=== PATIENT | female | born 1945 | race Caucasian/White ===

== ENCOUNTER 2018-12-26 12:39 | Observation (INO) | payer OTHER, SELFPAY ==
[2018-12-26] VITALS (9 sets, daily range): BP systolic 132–172; BP diastolic 62–99; PULSE 90–108; RESP 18–22; TEMP 36.1–36.7; O2SAT 93–97; BMI 38.3
--- NOTE | 2018-12-26 12:51 | DI.RAD.S_ITS ---
PROCEDURE: XR ACUTE ABDOMEN SERIES INDICATIONS: diverticulitis, h/o perforation TECHNIQUE: One view chest and two views of the abdomen were acquired. COMPARISON: None. FINDINGS: Surgical changes and devices: Scattered surgical clips are seen within the abdomen. Chest: Lungs are clear. Heart size is normal. No pleural effusions. There is aortic atherosclerosis. No pneumothorax is evident. No pneumoperitoneum. Abdomen: Multiple air fluid levels are identified within the abdomen with associated air filled distended small bowel loops. The largest are located within the left upper quadrant and measure up to 3.7 cm in diameter. There is stool are seen within the colon. No suspicious calcifications. Visualized solid organ contours appear normal. Bones: No suspicious bony lesions. Prominent levoconvex curvature of the lumbar spine is present. IMPRESSION: 1. Small bowel ileus versus partial obstruction. The need for better characterization utilizing CT may be determined clinically. 2. No acute cardiopulmonary process. Dictated by: Twin Russ M.D. on 12/26/2018 at 12:35 Approved by: Twin Russ M.D. on 12/26/2018 at 12:37
--- NOTE | 2018-12-26 12:53 | ED.ABDPAIN ---
HPI - Abdominal Pain <Barbra Werner PA-C - Last Filed: 12/26/18 22:08> General Chief Complaint: Abdominal Pain Stated Complaint: severe cramps, diverticulitus Time Seen by Provider: 12/26/18 12:51 Source: patient Mode of arrival: ambulatory Limitations: no limitations History of Present Illness HPI narrative: This 73-year-old female comes in due to suspected diverticulitis flare. She states that she has had this for years and feels like this pain is typical of that. She states that she did have a perforation related to this in the past and had a colon resection, then later had to have some scar tissue revised. She has not had other abdominal surgeries. She states that usually she can feel this coming on and can get it better at home with diet modification and liquids, but today pain is more intense (she had made an appointment with her doctor today but got worse). She states that usually she will vomit that helps her feel better, but she does not have any nausea and has not had any vomiting. She did have some loose stools yesterday afternoon, none today. She denies any urinary symptoms. She has not had fever. She denies chest pain or dyspnea, pain or swelling in the extremities or other new symptoms with this. She states pain is lower, mostly midline to left. She denies recent travel. She states that she ate a corned beef sandwich yesterday that seemed to trigger symptoms Related Data Home Medications Medication Instructions Recorded Confirmed No Known Home Medications 12/26/18 12/26/18 Allergies Allergy/AdvReac Type Severity Reaction Status Date / Time No Known Drug Allergies Allergy Verified 12/26/18 12:48 Review of Systems <Barbra Werner PA-C - Last Filed: 12/26/18 22:08> Review of Systems ROS Unobtainable: All systems reviewed & are unremarkable except as noted in HPI and below PFSH <Barbra Werner PA-C - Last Filed: 12/26/18 22:08> Medical History Hiatal hernia (Acute) Ventral hernia (Acute) Diverticulitis (Chronic) Surgical History Perforated diverticulum (Resolved) S/P colon resection (Resolved) Status post scar revision (Resolved) Social History household members: none Smoking Status: Never smoker Family History Father Cardiac disease Hx of CABG Dementia Mother Cancer Daughter In good health Social History household members: none Smoking Status: Never smoker Exam <JIGAR Ferguson Last Filed: 12/26/18 22:08> Narrative Exam Narrative: GENERAL APPEARANCE: Patient appears mildly uncomfortable but in NAD HEENT: PERRL, EOMI, no scleral icterus NECK: Supple, no masses LUNGS: Clear to auscultation bilaterally. HEART: Rate and rhythm regular, normal S1 and S2, no S3 or S4. ABDOMEN: Protuberant, midline surgical scar noted, nondistended, bowel sounds present x 4 quadrants, no masses palpable, no hepatosplenomegaly. tender lower midline to left lower quadrant without guarding or rebound EXTREMITIES: No edema, no cyanosis, no calf tenderness DERMATOLOGIC: No jaundice or exanthem NEUROLOGIC: Alert and oriented with normal speech and coordination Initial Vital Signs Initial Vital Signs: Vital Signs Temperature 96.9 F L 12/26/18 12:44 Pulse Rate 108 H 12/26/18 12:44 Respiratory Rate 18 12/26/18 12:44 Blood Pressure 157/99 H 12/26/18 12:44 Pulse Oximetry 96 12/26/18 12:44 <Ann Tillman DO - Last Filed: 12/27/18 08:56> Initial Vital Signs Initial Vital Signs: Vital Signs Temperature 96.9 F L 12/26/18 12:44 Pulse Rate 108 H 12/26/18 12:44 Respiratory Rate 18 12/26/18 12:44 Blood Pressure 157/99 H 12/26/18 12:44 Pulse Oximetry 96 12/26/18 12:44 Course <JIGAR Ferguson Last Filed: 12/26/18 22:08> Additional Information: Patient was feeling significantly improved after initial pain medications and fluids. After about 5 hours (during weight to get her transferred for CT scan as ours was not functioning), patient reported she felt slightly lightheaded and pain was starting to return. She has not eaten for 24 hours. She fluid bolus given and additional Toradol and she was feeling better prior to transfer. O2 sat was noted to be somewhat low briefly, however when I went in to room noted that her O2 monitor had been placed upside down on her finger when she returned from the restroom, improved immediately when adjusted. 2049: Patient returned from [facility] approximately 30m ago but still no CT report received. I paged Dr. Colvin, radiologist medical donation professional, who advised this was read and patient has umbilical hernia with bowel obstruction. They are faxing report and surgery paged. Patient remains comfortable 2119: Report received. I have spoken with Dr. Corbin, medical donation professional for surgery. The patient does not have nausea, remains comfortable in terms of pain. I re-evaluated and can feel some non circumscribed increased density in the supra umbilical area just to the left of her incision site but no reducible circumscribed mass. she suggested admission this evening, continue maintenance fluids, pain medicine as needed, nausea medication as needed. She advised NG tube if patient starts vomiting, but does not appear to need now. She would like to have patient admitted to Medicine and she will see in the morning. I spoke with [facility] Geraldo who is agreeable with plan and will admit patient Orders Ordered: ED Orders 12/27/18 05:00 Basic Metabolic Panel Routine Complete Blood Count AUTO DIFF Routine Hemoglobin A1C % Routine Lipid Panel Routine Albuterol (Ventolin) 2.5 mg INH [id number] PRN PRN Reason: Wheezing Heparin Sodium (Porcine) (Heparin) 5,000 unit SUBCUT BID TERRA Hydromorphone HCl (Dilaudid) 0.5 mg IV Q6H PRN PRN Reason: Pain, Moderate (4-6) Hydromorphone HCl (Dilaudid) 1 mg IV Q6HR PRN PRN Reason: Pain, Severe (7-10) Last Admin: 12/27/18 03:54 Dose: 1 mg Sodium Chloride (Normal Saline 0.9%) 1,000 mls @ 125 mls/hr IV CONT TERRA Last Admin: 12/27/18 07:56 Dose: 125 mls/hr Infusion: 12/27/18 07:40 Dose: 125 mls/hr Admin: 12/26/18 23:40 Dose: 125 mls/hr Naloxone HCl (Narcan) 0.2 mg IV Q2MIN PRN PRN Reason: Opiate Reversal Ondansetron HCl (Zofran) 4 mg IV Q8HR PRN PRN Reason: Nausea And Vomiting Last Admin: 12/27/18 03:59 Dose: 4 mg Sodium Chloride (Normal Saline 0.9% Flush) 10 ml IV PRN PRN PRN Reason: Flush Last Admin: 12/26/18 23:55 Dose: 10 ml Sodium Chloride (Normal Saline 0.9% Flush) 10 ml IV BID TERRA Discontinued Medications Hydromorphone HCl (Dilaudid) 0.5 mg IV NOW ONE Stop: 12/26/18 13:16 Last Admin: 12/26/18 13:37 Dose: 0.5 mg Sodium Chloride (Normal Saline 0.9%) 1,000 mls @ 1,000 mls/hr IV BOLUS ONE Stop: 12/26/18 14:14 Last Infusion: 12/26/18 15:44 Dose: 0 mls/hr Admin: 12/26/18 13:37 Dose: 1,000 mls/hr Sodium Chloride (Normal Saline 0.9%) 1,000 mls @ 1,000 mls/hr IV BOLUS ONE Stop: 12/26/18 18:53 Last Infusion: 12/26/18 19:30 Dose: 0 mls/hr Admin: 12/26/18 18:18 Dose: 1,000 mls/hr Ketorolac Tromethamine (Toradol) 15 mg IV NOW ONE Stop: 12/26/18 13:16 Last Admin: 12/26/18 13:37 Dose: 15 mg Ketorolac Tromethamine (Toradol) 15 mg IV NOW ONE Stop: 12/26/18 17:55 Last Admin: 12/26/18 18:18 Dose: 15 mg Vital Signs - 8 hr 12/27/18 03:00 12/27/18 07:45 Temperature 98.3 F 98.4 F Pulse Rate 96 H 100 H Respiratory Rate 16 16 Blood Pressure 152/88 H 153/84 H Pulse Oximetry 92 97 <Ann Tillman, - Last Filed: 12/27/18 08:56> Orders Ordered: ED Orders 12/27/18 05:00 Basic Metabolic Panel Routine Complete Blood Count AUTO DIFF Routine Hemoglobin A1C % Routine Lipid Panel Routine Albuterol (Ventolin) 2.5 mg INH [id number] PRN PRN Reason: Wheezing Heparin Sodium (Porcine) (Heparin) 5,000 unit SUBCUT BID TERRA Hydromorphone HCl (Dilaudid) 0.5 mg IV Q6H PRN PRN Reason: Pain, Moderate (4-6) Hydromorphone HCl (Dilaudid) 1 mg IV Q6HR PRN PRN Reason: Pain, Severe (7-10) Last Admin: 12/27/18 03:54 Dose: 1 mg Sodium Chloride (Normal Saline 0.9%) 1,000 mls @ 125 mls/hr IV CONT TERRA Last Admin: 12/27/18 07:56 Dose: 125 mls/hr Infusion: 12/27/18 07:40 Dose: 125 mls/hr Admin: 12/26/18 23:40 Dose: 125 mls/hr Naloxone HCl (Narcan) 0.2 mg IV Q2MIN PRN PRN Reason: Opiate Reversal Ondansetron HCl (Zofran) 4 mg IV Q8HR PRN PRN Reason: Nausea And Vomiting Last Admin: 12/27/18 03:59 Dose: 4 mg Sodium Chloride (Normal Saline 0.9% Flush) 10 ml IV PRN PRN PRN Reason: Flush Last Admin: 12/26/18 23:55 Dose: 10 ml Sodium Chloride (Normal Saline 0.9% Flush) 10 ml IV BID TERRA Discontinued Medications Hydromorphone HCl (Dilaudid) 0.5 mg IV NOW ONE Stop: 12/26/18 13:16 Last Admin: 12/26/18 13:37 Dose: 0.5 mg Sodium Chloride (Normal Saline 0.9%) 1,000 mls @ 1,000 mls/hr IV BOLUS ONE Stop: 12/26/18 14:14 Last Infusion: 12/26/18 15:44 Dose: 0 mls/hr Admin: 12/26/18 13:37 Dose: 1,000 mls/hr Sodium Chloride (Normal Saline 0.9%) 1,000 mls @ 1,000 mls/hr IV BOLUS ONE Stop: 12/26/18 18:53 Last Infusion: 12/26/18 19:30 Dose: 0 mls/hr Admin: 12/26/18 18:18 Dose: 1,000 mls/hr Ketorolac Tromethamine (Toradol) 15 mg IV NOW ONE Stop: 12/26/18 13:16 Last Admin: 12/26/18 13:37 Dose: 15 mg Ketorolac Tromethamine (Toradol) 15 mg IV NOW ONE Stop: 12/26/18 17:55 Last Admin: 12/26/18 18:18 Dose: 15 mg Vital Signs - 8 hr 12/27/18 03:00 12/27/18 07:45 Temperature 98.3 F 98.4 F Pulse Rate 96 H 100 H Respiratory Rate 16 16 Blood Pressure 152/88 H 153/84 H Pulse Oximetry 92 97 MDM - Abdominal Pain <Barbra Werner PA-C - Last Filed: 12/26/18 22:08> Lab Data Attestation: I reviewed the patient's lab results. Result diagrams: 12/27/18 05:00 12/27/18 05:00 Lab Results 12/26/18 12/26/18 12/26/18 Range/Units 13:25 13:25 13:25 WBC 14.5 H (4.5-11.0) X10^3/uL RBC 5.40 H (4.0-5.2) X10^6/uL Hgb 14.8 (12.0-16.0) g/dL Hct 45.2 (36-46) % MCV 83.8 (80-100) fL MCH 27.4 (26-34) PG MCHC 32.8 (30-36) % RDW 15.3 H (11.6-14.8) % Plt Count 293 (150-400) X10^3/uL Neut % (Auto) 87.8 H (50-75) % Lymph % (Auto) 7.0 L (25-40) % Sharkey % (Auto) 4.5 (3-14) % Eos % (Auto) 0.3 L (2-4) % Baso % (Auto) 0.4 (0-2) % Neut # (Auto) 74845 H (7272-7953) /uL Lymph # (Auto) 1000 L (7591-4693) /uL Sharkey # (Auto) 700 (0-900) /uL Eos # (Auto) 0 (0-450) /uL Baso # (Auto) 100 (0-100) /uL PT 10.9 (10.1-12.7) SECONDS INR 0.9 (0.9-1.3) APTT 28 (26.4-36.2) SECONDS Sodium 138 (137-145) mmol/L Potassium 4.1 (3.4-5.1) mmol/L Chloride 101 (98-107) mmol/L Carbon Dioxide 25 (22-32) mmol/L BUN 16 (7-17) mg/dL Creatinine 0.60 (0.52-1.04) mg/dL Estimated GFR > 60.0 (>60) mL/min BUN/Creatinine Ratio 26.7 H (6-22) Glucose 189 H (80-110) mg/dL Hemoglobin A1c (4.0-6.0) % Lactate (0.7-2.1) mmol/L Calcium 10.1 (8.4-10.2) mg/dL Total Bilirubin 0.9 (0.2-1.3) mg/dL AST 26 (14-36) IU/L ALT 25 (9-52) IU/L Alkaline Phosphatase 118 (38-126) U/L Total Protein 8.4 H (6.3-8.2) g/dL Albumin 4.9 (3.5-5.0) g/dL Globulin 3.5 (1.7-4.1) g/dL Albumin/Globulin Ratio 1.4 (1.0-2.8) Triglycerides (35-150) mg/dL Cholesterol (140-199) mg/dL LDL Cholesterol, Calc (<100) mg/dL HDL Cholesterol (40-60) mg/dL Lipase 44 (23-300) U/L Urine Ictotest (Negative) Urine RBC (0-5/HPF) Urine WBC (0-5/HPF) Ur Squamous Epith Cells (0-5/HPF) Ur Transition Epith Cell (0-5/HPF) Urine Bacteria (None) Urine Mucus (Negative) Ur Culture Indicated? Chlamy pneumoniae PCR (Not Detect) Adenovirus (PCR) (Not Detect) B.parapertussis DNA PCR (Not Detect) Coronavirus OC43 (PCR) (Not Detect) Coronavirus HKU1 (PCR) (Not Detect) Coronavirus 229E (PCR) (Not Detect) Coronavirus NL63 (PCR) (Not Detect) Human Metapneumovir PCR (Not Detect) Influenza Type A (PCR) (Not Detect) Influenza Type B (PCR) (Not Detect) M. pneumoniae (PCR) (Not Detect) Parainfluenza 1 (PCR) (Not Detect) Parainfluenza 2 (PCR) (Not Detect) Parainfluenza 3 (PCR) (Not Detect) Parainfluenza 4 (PCR) (Not Detect) RSV (PCR) (Not Detect) Entero/Rhino (PCR) (Not Detect) 12/26/18 12/26/18 12/27/18 Range/Units 13:25 17:15 00:03 WBC (4.5-11.0) X10^3/uL RBC (4.0-5.2) X10^6/uL Hgb (12.0-16.0) g/dL Hct (36-46) % MCV (80-100) fL MCH (26-34) PG MCHC (30-36) % RDW (11.6-14.8) % Plt Count (150-400) X10^3/uL Neut % (Auto) (50-75) % Lymph % (Auto) (25-40) % Sharkey % (Auto) (3-14) % Eos % (Auto) (2-4) % Baso % (Auto) (0-2) % Neut # (Auto) (1112-0724) /uL Lymph # (Auto) (1012-4040) /uL Sharkey # (Auto) (0-900) /uL Eos # (Auto) (0-450) /uL Baso # (Auto) (0-100) /uL PT (10.1-12.7) SECONDS INR (0.9-1.3) APTT (26.4-36.2) SECONDS Sodium (137-145) mmol/L Potassium (3.4-5.1) mmol/L Chloride (98-107) mmol/L Carbon Dioxide (22-32) mmol/L BUN (7-17) mg/dL Creatinine (0.52-1.04) mg/dL Estimated GFR (>60) mL/min BUN/Creatinine Ratio (6-22) Glucose (80-110) mg/dL Hemoglobin A1c (4.0-6.0) % Lactate 1.5 (0.7-2.1) mmol/L Calcium (8.4-10.2) mg/dL Total Bilirubin (0.2-1.3) mg/dL AST (14-36) IU/L ALT (9-52) IU/L Alkaline Phosphatase (38-126) U/L Total Protein (6.3-8.2) g/dL Albumin (3.5-5.0) g/dL Globulin (1.7-4.1) g/dL Albumin/Globulin Ratio (1.0-2.8) Triglycerides (35-150) mg/dL Cholesterol (140-199) mg/dL LDL Cholesterol, Calc (<100) mg/dL HDL Cholesterol (40-60) mg/dL Lipase (23-300) U/L Urine Ictotest Negative (Negative) Urine RBC 0-1/hpf (0-5/HPF) Urine WBC 5-10/hpf H (0-5/HPF) Ur Squamous Epith Cells 1-5 /hpf (0-5/HPF) Ur Transition Epith Cell 0-1/hpf (0-5/HPF) Urine Bacteria Few (2-10) H (None) Urine Mucus 2+ H (Negative) Ur Culture Indicated? Specimen cultured Chlamy pneumoniae PCR Not detected (Not Detect) Adenovirus (PCR) Not detected (Not Detect) B.parapertussis DNA PCR Not detected (Not Detect) Coronavirus OC43 (PCR) Not detected (Not Detect) Coronavirus HKU1 (PCR) Not detected (Not Detect) Coronavirus 229E (PCR) Not detected (Not Detect) Coronavirus NL63 (PCR) Not detected (Not Detect) Human Metapneumovir PCR Not detected (Not Detect) Influenza Type A (PCR) Not detected (Not Detect) Influenza Type B (PCR) Not detected (Not Detect) M. pneumoniae (PCR) Not detected (Not Detect) Parainfluenza 1 (PCR) Not detected (Not Detect) Parainfluenza 2 (PCR) Not detected (Not Detect) Parainfluenza 3 (PCR) Not detected (Not Detect) Parainfluenza 4 (PCR) Not detected (Not Detect) RSV (PCR) Not detected (Not Detect) Entero/Rhino (PCR) Not detected (Not Detect) 12/27/18 12/27/18 12/27/18 Range/Units 05:00 05:00 05:00 WBC 8.3 (4.5-11.0) X10^3/uL RBC 4.75 (4.0-5.2) X10^6/uL Hgb 12.9 (12.0-16.0) g/dL Hct 39.8 (36-46) % MCV 83.8 (80-100) fL MCH 27.1 (26-34) PG MCHC 32.4 (30-36) % RDW 15.3 H (11.6-14.8) % Plt Count 258 (150-400) X10^3/uL Neut % (Auto) 72.9 (50-75) % Lymph % (Auto) 16.0 L (25-40) % Sharkey % (Auto) 9.7 (3-14) % Eos % (Auto) 1.1 L (2-4) % Baso % (Auto) 0.3 (0-2) % Neut # (Auto) 6100 (7105-0009) /uL Lymph # (Auto) 1300 (3771-9226) /uL Sharkey # (Auto) 800 (0-900) /uL Eos # (Auto) 100 (0-450) /uL Baso # (Auto) 0 (0-100) /uL PT (10.1-12.7) SECONDS INR (0.9-1.3) APTT (26.4-36.2) SECONDS Sodium 138 (137-145) mmol/L Potassium 3.8 (3.4-5.1) mmol/L Chloride 106 (98-107) mmol/L Carbon Dioxide 24 (22-32) mmol/L BUN 17 (7-17) mg/dL Creatinine 0.60 (0.52-1.04) mg/dL Estimated GFR > 60.0 (>60) mL/min BUN/Creatinine Ratio 28.3 H (6-22) Glucose 156 H (80-110) mg/dL Hemoglobin A1c 7.6 H (4.0-6.0) % Lactate (0.7-2.1) mmol/L Calcium 8.6 (8.4-10.2) mg/dL Total Bilirubin (0.2-1.3) mg/dL AST (14-36) IU/L ALT (9-52) IU/L Alkaline Phosphatase (38-126) U/L Total Protein (6.3-8.2) g/dL Albumin (3.5-5.0) g/dL Globulin (1.7-4.1) g/dL Albumin/Globulin Ratio (1.0-2.8) Triglycerides (35-150) mg/dL Cholesterol (140-199) mg/dL LDL Cholesterol, Calc (<100) mg/dL HDL Cholesterol (40-60) mg/dL Lipase (23-300) U/L Urine Ictotest (Negative) Urine RBC (0-5/HPF) Urine WBC (0-5/HPF) Ur Squamous Epith Cells (0-5/HPF) Ur Transition Epith Cell (0-5/HPF) Urine Bacteria (None) Urine Mucus (Negative) Ur Culture Indicated? Chlamy pneumoniae PCR (Not Detect) Adenovirus (PCR) (Not Detect) B.parapertussis DNA PCR (Not Detect) Coronavirus OC43 (PCR) (Not Detect) Coronavirus HKU1 (PCR) (Not Detect) Coronavirus 229E (PCR) (Not Detect) Coronavirus NL63 (PCR) (Not Detect) Human Metapneumovir PCR (Not Detect) Influenza Type A (PCR) (Not Detect) Influenza Type B (PCR) (Not Detect) M. pneumoniae (PCR) (Not Detect) Parainfluenza 1 (PCR) (Not Detect) Parainfluenza 2 (PCR) (Not Detect) Parainfluenza 3 (PCR) (Not Detect) Parainfluenza 4 (PCR) (Not Detect) RSV (PCR) (Not Detect) Entero/Rhino (PCR) (Not Detect) 12/27/18 Range/Units 05:00 WBC (4.5-11.0) X10^3/uL RBC (4.0-5.2) X10^6/uL Hgb (12.0-16.0) g/dL Hct (36-46) % MCV (80-100) fL MCH (26-34) PG MCHC (30-36) % RDW (11.6-14.8) % Plt Count (150-400) X10^3/uL Neut % (Auto) (50-75) % Lymph % (Auto) (25-40) % Sharkey % (Auto) (3-14) % Eos % (Auto) (2-4) % Baso % (Auto) (0-2) % Neut # (Auto) (3313-5550) /uL Lymph # (Auto) (5017-3806) /uL Sharkey # (Auto) (0-900) /uL Eos # (Auto) (0-450) /uL Baso # (Auto) (0-100) /uL PT (10.1-12.7) SECONDS INR (0.9-1.3) APTT (26.4-36.2) SECONDS Sodium (137-145) mmol/L Potassium (3.4-5.1) mmol/L Chloride (98-107) mmol/L Carbon Dioxide (22-32) mmol/L BUN (7-17) mg/dL Creatinine (0.52-1.04) mg/dL Estimated GFR (>60) mL/min BUN/Creatinine Ratio (6-22) Glucose (80-110) mg/dL Hemoglobin A1c (4.0-6.0) % Lactate (0.7-2.1) mmol/L Calcium (8.4-10.2) mg/dL Total Bilirubin (0.2-1.3) mg/dL AST (14-36) IU/L ALT (9-52) IU/L Alkaline Phosphatase (38-126) U/L Total Protein (6.3-8.2) g/dL Albumin (3.5-5.0) g/dL Globulin (1.7-4.1) g/dL Albumin/Globulin Ratio (1.0-2.8) Triglycerides 64 (35-150) mg/dL Cholesterol 171 (140-199) mg/dL LDL Cholesterol, Calc 105 H (<100) mg/dL HDL Cholesterol 53 (40-60) mg/dL Lipase (23-300) U/L Urine Ictotest (Negative) Urine RBC (0-5/HPF) Urine WBC (0-5/HPF) Ur Squamous Epith Cells (0-5/HPF) Ur Transition Epith Cell (0-5/HPF) Urine Bacteria (None) Urine Mucus (Negative) Ur Culture Indicated? Chlamy pneumoniae PCR (Not Detect) Adenovirus (PCR) (Not Detect) B.parapertussis DNA PCR (Not Detect) Coronavirus OC43 (PCR) (Not Detect) Coronavirus HKU1 (PCR) (Not Detect) Coronavirus 229E (PCR) (Not Detect) Coronavirus NL63 (PCR) (Not Detect) Human Metapneumovir PCR (Not Detect) Influenza Type A (PCR) (Not Detect) Influenza Type B (PCR) (Not Detect) M. pneumoniae (PCR) (Not Detect) Parainfluenza 1 (PCR) (Not Detect) Parainfluenza 2 (PCR) (Not Detect) Parainfluenza 3 (PCR) (Not Detect) Parainfluenza 4 (PCR) (Not Detect) RSV (PCR) (Not Detect) Entero/Rhino (PCR) (Not Detect) Point of care testing: Urine Dip Bedside Urine Glucose Negative Bedside Urine Bilirubin ++ 2 Bedside Urine Ketone +/- 5 Urine Specific [place] 1.030 Bedside Urine Occult Blood - Negative Bedside Urine pH 6.0 Bedside Urine Protein + 30 Bedside Urine Urobilinogen +/- 1mg Bedside Urine Nitrite - Negative Bedside Urine Leukocytes - Negative Esterase Imaging Data Abdominal x-ray: Radiologist's impression: Geetha Sheriff 73 [address] [place] [address] XRay Report Signed Patient: Geetha Sheriff GMR#: [id number] : 7Acct:[id number] Age/Sex: 73 / FDate of Service: 12/26/18 Loc: ED Accession Number: [id number] Procedure: XR acute abdomen series Ordering Provider: Barbra Werner P.A-C PROCEDURE: XR ACUTE ABDOMEN SERIES INDICATIONS: diverticulitis, h/o perforation TECHNIQUE: One view chest and two views of the abdomen were acquired. COMPARISON: None. FINDINGS: Surgical changes and devices: Scattered surgical clips are seen within the abdomen. Chest: Lungs are clear. Heart size is normal. No pleural effusions. There is aortic atherosclerosis. No pneumothorax is evident. No pneumoperitoneum. Abdomen: Multiple air fluid levels are identified within the abdomen with associated air filled distended small bowel loops. The largest are located within the left upper quadrant and measure up to 3.7 cm in diameter. There is stool are seen within the colon. No suspicious calcifications. Visualized solid organ contours appear normal. Bones: No suspicious bony lesions. Prominent levoconvex curvature of the lumbar spine is present. IMPRESSION: 1. Small bowel ileus versus partial obstruction. The need for better characterization utilizing CT may be determined clinically. 2. No acute cardiopulmonary process. Dictated by: Twin Russ M.D. on 12/26/2018 at 12:35 Approved by: Twin Russ M.D. on 12/26/2018 at 12:37 CT scan - abdomen: Radiologist's impression: The patient was transferred for CT abdomen and pelvis with contrast to an outside facility due to unavailability of CT scanner here. CT showed SBO within a supraumbilical hernia. There is a transition point. Stomach is not distended. Full report will be scanned into chart ECG Data Attestation: I personally reviewed and interpreted this ECG as follows: (Sinus tachycardia with rate 108, right bundle branch pattern) Prior ECG tracings: not available for review <Ann Tillman DO - Last Filed: 12/27/18 08:56> Lab Data Lab Results 12/26/18 12/26/18 12/26/18 Range/Units 13:25 13:25 13:25 WBC 14.5 H (4.5-11.0) X10^3/uL RBC 5.40 H (4.0-5.2) X10^6/uL Hgb 14.8 (12.0-16.0) g/dL Hct 45.2 (36-46) % MCV 83.8 (80-100) fL MCH 27.4 (26-34) PG MCHC 32.8 (30-36) % RDW 15.3 H (11.6-14.8) % Plt Count 293 (150-400) X10^3/uL Neut % (Auto) 87.8 H (50-75) % Lymph % (Auto) 7.0 L (25-40) % Sharkey % (Auto) 4.5 (3-14) % Eos % (Auto) 0.3 L (2-4) % Baso % (Auto) 0.4 (0-2) % Neut # (Auto) 60513 H (9306-7323) /uL Lymph # (Auto) 1000 L (3742-5633) /uL Sharkey # (Auto) 700 (0-900) /uL Eos # (Auto) 0 (0-450) /uL Baso # (Auto) 100 (0-100) /uL PT 10.9 (10.1-12.7) SECONDS INR 0.9 (0.9-1.3) APTT 28 (26.4-36.2) SECONDS Sodium 138 (137-145) mmol/L Potassium 4.1 (3.4-5.1) mmol/L Chloride 101 (98-107) mmol/L Carbon Dioxide 25 (22-32) mmol/L BUN 16 (7-17) mg/dL Creatinine 0.60 (0.52-1.04) mg/dL Estimated GFR > 60.0 (>60) mL/min BUN/Creatinine Ratio 26.7 H (6-22) Glucose 189 H (80-110) mg/dL Hemoglobin A1c (4.0-6.0) % Lactate (0.7-2.1) mmol/L Calcium 10.1 (8.4-10.2) mg/dL Total Bilirubin 0.9 (0.2-1.3) mg/dL AST 26 (14-36) IU/L ALT 25 (9-52) IU/L Alkaline Phosphatase 118 (38-126) U/L Total Protein 8.4 H (6.3-8.2) g/dL Albumin 4.9 (3.5-5.0) g/dL Globulin 3.5 (1.7-4.1) g/dL Albumin/Globulin Ratio 1.4 (1.0-2.8) Triglycerides (35-150) mg/dL Cholesterol (140-199) mg/dL LDL Cholesterol, Calc (<100) mg/dL HDL Cholesterol (40-60) mg/dL Lipase 44 (23-300) U/L Urine Ictotest (Negative) Urine RBC (0-5/HPF) Urine WBC (0-5/HPF) Ur Squamous Epith Cells (0-5/HPF) Ur Transition Epith Cell (0-5/HPF) Urine Bacteria (None) Urine Mucus (Negative) Ur Culture Indicated? Chlamy pneumoniae PCR (Not Detect) Adenovirus (PCR) (Not Detect) B.parapertussis DNA PCR (Not Detect) Coronavirus OC43 (PCR) (Not Detect) Coronavirus HKU1 (PCR) (Not Detect) Coronavirus 229E (PCR) (Not Detect) Coronavirus NL63 (PCR) (Not Detect) Human Metapneumovir PCR (Not Detect) Influenza Type A (PCR) (Not Detect) Influenza Type B (PCR) (Not Detect) M. pneumoniae (PCR) (Not Detect) Parainfluenza 1 (PCR) (Not Detect) Parainfluenza 2 (PCR) (Not Detect) Parainfluenza 3 (PCR) (Not Detect) Parainfluenza 4 (PCR) (Not Detect) RSV (PCR) (Not Detect) Entero/Rhino (PCR) (Not Detect) 12/26/18 12/26/18 12/27/18 Range/Units 13:25 17:15 00:03 WBC (4.5-11.0) X10^3/uL RBC (4.0-5.2) X10^6/uL Hgb (12.0-16.0) g/dL Hct (36-46) % MCV (80-100) fL MCH (26-34) PG MCHC (30-36) % RDW (11.6-14.8) % Plt Count (150-400) X10^3/uL Neut % (Auto) (50-75) % Lymph % (Auto) (25-40) % Sharkey % (Auto) (3-14) % Eos % (Auto) (2-4) % Baso % (Auto) (0-2) % Neut # (Auto) (8750-6522) /uL Lymph # (Auto) (4538-3703) /uL Sharkey # (Auto) (0-900) /uL Eos # (Auto) (0-450) /uL Baso # (Auto) (0-100) /uL PT (10.1-12.7) SECONDS INR (0.9-1.3) APTT (26.4-36.2) SECONDS Sodium (137-145) mmol/L Potassium (3.4-5.1) mmol/L Chloride (98-107) mmol/L Carbon Dioxide (22-32) mmol/L BUN (7-17) mg/dL Creatinine (0.52-1.04) mg/dL Estimated GFR (>60) mL/min BUN/Creatinine Ratio (6-22) Glucose (80-110) mg/dL Hemoglobin A1c (4.0-6.0) % Lactate 1.5 (0.7-2.1) mmol/L Calcium (8.4-10.2) mg/dL Total Bilirubin (0.2-1.3) mg/dL AST (14-36) IU/L ALT (9-52) IU/L Alkaline Phosphatase (38-126) U/L Total Protein (6.3-8.2) g/dL Albumin (3.5-5.0) g/dL Globulin (1.7-4.1) g/dL Albumin/Globulin Ratio (1.0-2.8) Triglycerides (35-150) mg/dL Cholesterol (140-199) mg/dL LDL Cholesterol, Calc (<100) mg/dL HDL Cholesterol (40-60) mg/dL Lipase (23-300) U/L Urine Ictotest Negative (Negative) Urine RBC 0-1/hpf (0-5/HPF) Urine WBC 5-10/hpf H (0-5/HPF) Ur Squamous Epith Cells 1-5 /hpf (0-5/HPF) Ur Transition Epith Cell 0-1/hpf (0-5/HPF) Urine Bacteria Few (2-10) H (None) Urine Mucus 2+ H (Negative) Ur Culture Indicated? Specimen cultured Chlamy pneumoniae PCR Not detected (Not Detect) Adenovirus (PCR) Not detected (Not Detect) B.parapertussis DNA PCR Not detected (Not Detect) Coronavirus OC43 (PCR) Not detected (Not Detect) Coronavirus HKU1 (PCR) Not detected (Not Detect) Coronavirus 229E (PCR) Not detected (Not Detect) Coronavirus NL63 (PCR) Not detected (Not Detect) Human Metapneumovir PCR Not detected (Not Detect) Influenza Type A (PCR) Not detected (Not Detect) Influenza Type B (PCR) Not detected (Not Detect) M. pneumoniae (PCR) Not detected (Not Detect) Parainfluenza 1 (PCR) Not detected (Not Detect) Parainfluenza 2 (PCR) Not detected (Not Detect) Parainfluenza 3 (PCR) Not detected (Not Detect) Parainfluenza 4 (PCR) Not detected (Not Detect) RSV (PCR) Not detected (Not Detect) Entero/Rhino (PCR) Not detected (Not Detect) 12/27/18 12/27/18 12/27/18 Range/Units 05:00 05:00 05:00 WBC 8.3 (4.5-11.0) X10^3/uL RBC 4.75 (4.0-5.2) X10^6/uL Hgb 12.9 (12.0-16.0) g/dL Hct 39.8 (36-46) % MCV 83.8 (80-100) fL MCH 27.1 (26-34) PG MCHC 32.4 (30-36) % RDW 15.3 H (11.6-14.8) % Plt Count 258 (150-400) X10^3/uL Neut % (Auto) 72.9 (50-75) % Lymph % (Auto) 16.0 L (25-40) % Sharkey % (Auto) 9.7 (3-14) % Eos % (Auto) 1.1 L (2-4) % Baso % (Auto) 0.3 (0-2) % Neut # (Auto) 6100 (0468-9482) /uL Lymph # (Auto) 1300 (9142-5441) /uL Sharkey # (Auto) 800 (0-900) /uL Eos # (Auto) 100 (0-450) /uL Baso # (Auto) 0 (0-100) /uL PT (10.1-12.7) SECONDS INR (0.9-1.3) APTT (26.4-36.2) SECONDS Sodium 138 (137-145) mmol/L Potassium 3.8 (3.4-5.1) mmol/L Chloride 106 (98-107) mmol/L Carbon Dioxide 24 (22-32) mmol/L BUN 17 (7-17) mg/dL Creatinine 0.60 (0.52-1.04) mg/dL Estimated GFR > 60.0 (>60) mL/min BUN/Creatinine Ratio 28.3 H (6-22) Glucose 156 H (80-110) mg/dL Hemoglobin A1c 7.6 H (4.0-6.0) % Lactate (0.7-2.1) mmol/L Calcium 8.6 (8.4-10.2) mg/dL Total Bilirubin (0.2-1.3) mg/dL AST (14-36) IU/L ALT (9-52) IU/L Alkaline Phosphatase (38-126) U/L Total Protein (6.3-8.2) g/dL Albumin (3.5-5.0) g/dL Globulin (1.7-4.1) g/dL Albumin/Globulin Ratio (1.0-2.8) Triglycerides (35-150) mg/dL Cholesterol (140-199) mg/dL LDL Cholesterol, Calc (<100) mg/dL HDL Cholesterol (40-60) mg/dL Lipase (23-300) U/L Urine Ictotest (Negative) Urine RBC (0-5/HPF) Urine WBC (0-5/HPF) Ur Squamous Epith Cells (0-5/HPF) Ur Transition Epith Cell (0-5/HPF) Urine Bacteria (None) Urine Mucus (Negative) Ur Culture Indicated? Chlamy pneumoniae PCR (Not Detect) Adenovirus (PCR) (Not Detect) B.parapertussis DNA PCR (Not Detect) Coronavirus OC43 (PCR) (Not Detect) Coronavirus HKU1 (PCR) (Not Detect) Coronavirus 229E (PCR) (Not Detect) Coronavirus NL63 (PCR) (Not Detect) Human Metapneumovir PCR (Not Detect) Influenza Type A (PCR) (Not Detect) Influenza Type B (PCR) (Not Detect) M. pneumoniae (PCR) (Not Detect) Parainfluenza 1 (PCR) (Not Detect) Parainfluenza 2 (PCR) (Not Detect) Parainfluenza 3 (PCR) (Not Detect) Parainfluenza 4 (PCR) (Not Detect) RSV (PCR) (Not Detect) Entero/Rhino (PCR) (Not Detect) 12/27/18 Range/Units 05:00 WBC (4.5-11.0) X10^3/uL RBC (4.0-5.2) X10^6/uL Hgb (12.0-16.0) g/dL Hct (36-46) % MCV (80-100) fL MCH (26-34) PG MCHC (30-36) % RDW (11.6-14.8) % Plt Count (150-400) X10^3/uL Neut % (Auto) (50-75) % Lymph % (Auto) (25-40) % Sharkey % (Auto) (3-14) % Eos % (Auto) (2-4) % Baso % (Auto) (0-2) % Neut # (Auto) (4098-2498) /uL Lymph # (Auto) (9991-3375) /uL Sharkey # (Auto) (0-900) /uL Eos # (Auto) (0-450) /uL Baso # (Auto) (0-100) /uL PT (10.1-12.7) SECONDS INR (0.9-1.3) APTT (26.4-36.2) SECONDS Sodium (137-145) mmol/L Potassium (3.4-5.1) mmol/L Chloride (98-107) mmol/L Carbon Dioxide (22-32) mmol/L BUN (7-17) mg/dL Creatinine (0.52-1.04) mg/dL Estimated GFR (>60) mL/min BUN/Creatinine Ratio (6-22) Glucose (80-110) mg/dL Hemoglobin A1c (4.0-6.0) % Lactate (0.7-2.1) mmol/L Calcium (8.4-10.2) mg/dL Total Bilirubin (0.2-1.3) mg/dL AST (14-36) IU/L ALT (9-52) IU/L Alkaline Phosphatase (38-126) U/L Total Protein (6.3-8.2) g/dL Albumin (3.5-5.0) g/dL Globulin (1.7-4.1) g/dL Albumin/Globulin Ratio (1.0-2.8) Triglycerides 64 (35-150) mg/dL Cholesterol 171 (140-199) mg/dL LDL Cholesterol, Calc 105 H (<100) mg/dL HDL Cholesterol 53 (40-60) mg/dL Lipase (23-300) U/L Urine Ictotest (Negative) Urine RBC (0-5/HPF) Urine WBC (0-5/HPF) Ur Squamous Epith Cells (0-5/HPF) Ur Transition Epith Cell (0-5/HPF) Urine Bacteria (None) Urine Mucus (Negative) Ur Culture Indicated? Chlamy pneumoniae PCR (Not Detect) Adenovirus (PCR) (Not Detect) B.parapertussis DNA PCR (Not Detect) Coronavirus OC43 (PCR) (Not Detect) Coronavirus HKU1 (PCR) (Not Detect) Coronavirus 229E (PCR) (Not Detect) Coronavirus NL63 (PCR) (Not Detect) Human Metapneumovir PCR (Not Detect) Influenza Type A (PCR) (Not Detect) Influenza Type B (PCR) (Not Detect) M. pneumoniae (PCR) (Not Detect) Parainfluenza 1 (PCR) (Not Detect) Parainfluenza 2 (PCR) (Not Detect) Parainfluenza 3 (PCR) (Not Detect) Parainfluenza 4 (PCR) (Not Detect) RSV (PCR) (Not Detect) Entero/Rhino (PCR) (Not Detect) Point of care testing: Urine Dip Bedside Urine Glucose Negative Bedside Urine Bilirubin ++ 2 Bedside Urine Ketone +/- 5 Urine Specific [place] 1.030 Bedside Urine Occult Blood - Negative Bedside Urine pH 6.0 Bedside Urine Protein + 30 Bedside Urine Urobilinogen +/- 1mg Bedside Urine Nitrite - Negative Bedside Urine Leukocytes - Negative Esterase Imaging Data Abdominal x-ray: Radiologist's impression: PROCEDURE: XR ACUTE ABDOMEN SERIES INDICATIONS: diverticulitis, h/o perforation TECHNIQUE: One view chest and two views of the abdomen were acquired. COMPARISON: None. FINDINGS: Surgical changes and devices: Scattered surgical clips are seen within the abdomen. Chest: Lungs are clear. Heart size is normal. No pleural effusions. There is aortic atherosclerosis. No pneumothorax is evident. No pneumoperitoneum. Abdomen: Multiple air fluid levels are identified within the abdomen with associated air filled distended small bowel loops. The largest are located within the left upper quadrant and measure up to 3.7 cm in diameter. There is stool are seen within the colon. No suspicious calcifications. Visualized solid organ contours appear normal. Bones: No suspicious bony lesions. Prominent levoconvex curvature of the lumbar spine is present. IMPRESSION: 1. Small bowel ileus versus partial obstruction. The need for better characterization utilizing CT may be determined clinically. 2. No acute cardiopulmonary process. Dictated by: Twin Russ M.D. on 12/26/2018 at 12:35 Discharge Plan Departure Patient Disposition: Admitted As Inpatient Clinical Impression: SBO (small bowel obstruction), Hernia, umbilical, with obstruction Discharge Date/Time: 12/26/18 22:15 Interventions: ED Discharge Assessment Last Done: 12/26/18 22:35 Admit Date/Time: 12/26/18 21:43 Admit Provider: Elie Chow <Ann Tillman DO - Last Filed: 12/27/18 08:56> Cosign ED Attending Cosignature Attestation: I was immediately available in the department for consultation. Documentation has been reviewed. I agree with assessment and plan.
--- NOTE | 2018-12-26 12:59 | ED_ITS ---
HPI - Abdominal Pain <Barbra Werner PA-C - Last Filed: 12/26/18 22:08> General Chief Complaint: Abdominal Pain Stated Complaint: severe cramps, diverticulitus Time Seen by Provider: 12/26/18 12:51 Source: patient Mode of arrival: ambulatory Limitations: no limitations History of Present Illness HPI narrative: This 73-year-old female comes in due to suspected diverticulitis flare. She states that she has had this for years and feels like this pain is typical of that. She states that she did have a perforation related to this in the past and had a colon resection, then later had to have some scar tissue revised. She has not had other abdominal surgeries. She states that usually she can feel this coming on and can get it better at home with diet modification and liquids, but today pain is more intense (she had made an appointment with her doctor today but got worse). She states that usually she will vomit that helps her feel better, but she does not have any nausea and has not had any vomiting. She did have some loose stools yesterday afternoon, none today. She denies any urinary symptoms. She has not had fever. She denies chest pain or dyspnea, pain or swelling in the extremities or other new symptoms with this. She states pain is lower, mostly midline to left. She denies recent travel. She states that she ate a corned beef sandwich yesterday that seemed to trigger symptoms Related Data Home Medications Medication Instructions Recorded Confirmed No Known Home Medications 12/26/18 12/26/18 Allergies Allergy/AdvReac Type Severity Reaction Status Date / Time No Known Drug Allergies Allergy Verified 12/26/18 12:48 Review of Systems <Barbra Werner PA-C - Last Filed: 12/26/18 22:08> Review of Systems ROS Unobtainable: All systems reviewed & are unremarkable except as noted in HPI and below PFSH <Barbra Werner PA-C - Last Filed: 12/26/18 22:08> Medical History Hiatal hernia (Acute) Ventral hernia (Acute) Diverticulitis (Chronic) Surgical History Perforated diverticulum (Resolved) S/P colon resection (Resolved) Status post scar revision (Resolved) Social History household members: none Smoking Status: Never smoker Family History Father Cardiac disease Hx of CABG Dementia Mother Cancer Daughter In good health Social History household members: none Smoking Status: Never smoker Exam <JIGAR Ferguson Last Filed: 12/26/18 22:08> Narrative Exam Narrative: GENERAL APPEARANCE: Patient appears mildly uncomfortable but in NAD HEENT: PERRL, EOMI, no scleral icterus NECK: Supple, no masses LUNGS: Clear to auscultation bilaterally. HEART: Rate and rhythm regular, normal S1 and S2, no S3 or S4. ABDOMEN: Protuberant, midline surgical scar noted, nondistended, bowel sounds present x 4 quadrants, no masses palpable, no hepatosplenomegaly. tender lower midline to left lower quadrant without guarding or rebound EXTREMITIES: No edema, no cyanosis, no calf tenderness DERMATOLOGIC: No jaundice or exanthem NEUROLOGIC: Alert and oriented with normal speech and coordination Initial Vital Signs Initial Vital Signs: Vital Signs Temperature 96.9 F L 12/26/18 12:44 Pulse Rate 108 H 12/26/18 12:44 Respiratory Rate 18 12/26/18 12:44 Blood Pressure 157/99 H 12/26/18 12:44 Pulse Oximetry 96 12/26/18 12:44 <Ann Tillman DO - Last Filed: 12/27/18 08:56> Initial Vital Signs Initial Vital Signs: Vital Signs Temperature 96.9 F L 12/26/18 12:44 Pulse Rate 108 H 12/26/18 12:44 Respiratory Rate 18 12/26/18 12:44 Blood Pressure 157/99 H 12/26/18 12:44 Pulse Oximetry 96 12/26/18 12:44 Course <JIGAR Ferguson Last Filed: 12/26/18 22:08> Additional Information: Patient was feeling significantly improved after initial pain medications and fluids. After about 5 hours (during weight to get her transferred for CT scan as ours was not functioning), patient reported she felt slightly lightheaded and pain was starting to return. She has not eaten for 24 hours. She fluid bolus given and additional Toradol and she was feeling better prior to transfer. O2 sat was noted to be somewhat low briefly, however when I went in to room noted that her O2 monitor had been placed upside down on her finger when she returned from the restroom, improved immediately when adjusted. 2049: Patient returned from [facility] approximately 30m ago but still no CT report received. I paged Dr. Colvin, radiologist parks and recreation worker, who advised this was read and patient has umbilical hernia with bowel obstruction. They are faxing report and surgery paged. Patient remains comfortable 2119: Report received. I have spoken with Dr. Corbin, parks and recreation worker for surgery. The patient does not have nausea, remains comfortable in terms of pain. I re- evaluated and can feel some non circumscribed increased density in the supra umbilical area just to the left of her incision site but no reducible circumscribed mass. she suggested admission this evening, continue maintenance fluids, pain medicine as needed, nausea medication as needed. She advised NG tube if patient starts vomiting, but does not appear to need now. She would like to have patient admitted to Medicine and she will see in the morning. I spoke with PROJECT SYSTEMS ENGINEER Geraldo who is agreeable with plan and will admit patient Orders Ordered: ED Orders 12/27/18 05:00 Basic Metabolic Panel Routine Complete Blood Count AUTO DIFF Routine Hemoglobin A1C % Routine Lipid Panel Routine Albuterol (Ventolin) 2.5 mg INH [id number] PRN PRN Reason: Wheezing Heparin Sodium (Porcine) (Heparin) 5,000 unit SUBCUT BID TERRA Hydromorphone HCl (Dilaudid) 0.5 mg IV Q6H PRN PRN Reason: Pain, Moderate (4-6) Hydromorphone HCl (Dilaudid) 1 mg IV Q6HR PRN PRN Reason: Pain, Severe (7-10) Last Admin: 12/27/18 03:54 Dose: 1 mg Sodium Chloride (Normal Saline 0.9%) 1,000 mls @ 125 mls/hr IV CONT TERRA Last Admin: 12/27/18 07:56 Dose: 125 mls/hr Infusion: 12/27/18 07:40 Dose: 125 mls/hr Admin: 12/26/18 23:40 Dose: 125 mls/hr Naloxone HCl (Narcan) 0.2 mg IV Q2MIN PRN PRN Reason: Opiate Reversal Ondansetron HCl (Zofran) 4 mg IV Q8HR PRN PRN Reason: Nausea And Vomiting Last Admin: 12/27/18 03:59 Dose: 4 mg Sodium Chloride (Normal Saline 0.9% Flush) 10 ml IV PRN PRN PRN Reason: Flush Last Admin: 12/26/18 23:55 Dose: 10 ml Sodium Chloride (Normal Saline 0.9% Flush) 10 ml IV BID TERRA Discontinued Medications Hydromorphone HCl (Dilaudid) 0.5 mg IV NOW ONE Stop: 12/26/18 13:16 Last Admin: 12/26/18 13:37 Dose: 0.5 mg Sodium Chloride (Normal Saline 0.9%) 1,000 mls @ 1,000 mls/hr IV BOLUS ONE Stop: 12/26/18 14:14 Last Infusion: 12/26/18 15:44 Dose: 0 mls/hr Admin: 12/26/18 13:37 Dose: 1,000 mls/hr Sodium Chloride (Normal Saline 0.9%) 1,000 mls @ 1,000 mls/hr IV BOLUS ONE Stop: 12/26/18 18:53 Last Infusion: 12/26/18 19:30 Dose: 0 mls/hr Admin: 12/26/18 18:18 Dose: 1,000 mls/hr Ketorolac Tromethamine (Toradol) 15 mg IV NOW ONE Stop: 12/26/18 13:16 Last Admin: 12/26/18 13:37 Dose: 15 mg Ketorolac Tromethamine (Toradol) 15 mg IV NOW ONE Stop: 12/26/18 17:55 Last Admin: 12/26/18 18:18 Dose: 15 mg Vital Signs - 8 hr 12/27/18 03:00 12/27/18 07:45 Temperature 98.3 F 98.4 F Pulse Rate 96 H 100 H Respiratory Rate 16 16 Blood Pressure 152/88 H 153/84 H Pulse Oximetry 92 97 <Ann Tillman, - Last Filed: 12/27/18 08:56> Orders Ordered: ED Orders 12/27/18 05:00 Basic Metabolic Panel Routine Complete Blood Count AUTO DIFF Routine Hemoglobin A1C % Routine Lipid Panel Routine Albuterol (Ventolin) 2.5 mg INH [id number] PRN PRN Reason: Wheezing Heparin Sodium (Porcine) (Heparin) 5,000 unit SUBCUT BID TERRA Hydromorphone HCl (Dilaudid) 0.5 mg IV Q6H PRN PRN Reason: Pain, Moderate (4-6) Hydromorphone HCl (Dilaudid) 1 mg IV Q6HR PRN PRN Reason: Pain, Severe (7-10) Last Admin: 12/27/18 03:54 Dose: 1 mg Sodium Chloride (Normal Saline 0.9%) 1,000 mls @ 125 mls/hr IV CONT TERRA Last Admin: 12/27/18 07:56 Dose: 125 mls/hr Infusion: 12/27/18 07:40 Dose: 125 mls/hr Admin: 12/26/18 23:40 Dose: 125 mls/hr Naloxone HCl (Narcan) 0.2 mg IV Q2MIN PRN PRN Reason: Opiate Reversal Ondansetron HCl (Zofran) 4 mg IV Q8HR PRN PRN Reason: Nausea And Vomiting Last Admin: 12/27/18 03:59 Dose: 4 mg Sodium Chloride (Normal Saline 0.9% Flush) 10 ml IV PRN PRN PRN Reason: Flush Last Admin: 12/26/18 23:55 Dose: 10 ml Sodium Chloride (Normal Saline 0.9% Flush) 10 ml IV BID TERRA Discontinued Medications Hydromorphone HCl (Dilaudid) 0.5 mg IV NOW ONE Stop: 12/26/18 13:16 Last Admin: 12/26/18 13:37 Dose: 0.5 mg Sodium Chloride (Normal Saline 0.9%) 1,000 mls @ 1,000 mls/hr IV BOLUS ONE Stop: 12/26/18 14:14 Last Infusion: 12/26/18 15:44 Dose: 0 mls/hr Admin: 12/26/18 13:37 Dose: 1,000 mls/hr Sodium Chloride (Normal Saline 0.9%) 1,000 mls @ 1,000 mls/hr IV BOLUS ONE Stop: 12/26/18 18:53 Last Infusion: 12/26/18 19:30 Dose: 0 mls/hr Admin: 12/26/18 18:18 Dose: 1,000 mls/hr Ketorolac Tromethamine (Toradol) 15 mg IV NOW ONE Stop: 12/26/18 13:16 Last Admin: 12/26/18 13:37 Dose: 15 mg Ketorolac Tromethamine (Toradol) 15 mg IV NOW ONE Stop: 12/26/18 17:55 Last Admin: 12/26/18 18:18 Dose: 15 mg Vital Signs - 8 hr 12/27/18 03:00 12/27/18 07:45 Temperature 98.3 F 98.4 F Pulse Rate 96 H 100 H Respiratory Rate 16 16 Blood Pressure 152/88 H 153/84 H Pulse Oximetry 92 97 MDM - Abdominal Pain <Barbra Werner PA-C - Last Filed: 12/26/18 22:08> Lab Data Attestation: I reviewed the patient's lab results. Result diagrams: 12/27/18 05:00 12/27/18 05:00 Lab Results 12/26/18 12/26/18 12/26/18 Range/Units 13:25 13:25 13:25 WBC 14.5 H (4.5-11.0) X10^3/uL RBC 5.40 H (4.0-5.2) X10^6/uL Hgb 14.8 (12.0-16.0) g/dL Hct 45.2 (36-46) % MCV 83.8 (80-100) fL MCH 27.4 (26-34) PG MCHC 32.8 (30-36) % RDW 15.3 H (11.6-14.8) % Plt Count 293 (150-400) X10^3/uL Neut % (Auto) 87.8 H (50-75) % Lymph % (Auto) 7.0 L (25-40) % Randolph % (Auto) 4.5 (3-14) % Eos % (Auto) 0.3 L (2-4) % Baso % (Auto) 0.4 (0-2) % Neut # (Auto) 08015 H (1731-3277) /uL Lymph # (Auto) 1000 L (1314-6424) /uL [place] # (Auto) 700 (0-900) /uL Eos # (Auto) 0 (0-450) /uL Baso # (Auto) 100 (0-100) /uL PT 10.9 (10.1-12.7) SECONDS INR 0.9 (0.9-1.3) APTT 28 (26.4-36.2) SECONDS Sodium 138 (137-145) mmol/L Potassium 4.1 (3.4-5.1) mmol/L Chloride 101 (98-107) mmol/L Carbon Dioxide 25 (22-32) mmol/L BUN 16 (7-17) mg/dL Creatinine 0.60 (0.52-1.04) mg/dL Estimated GFR > 60.0 (>60) mL/min BUN/Creatinine Ratio 26.7 H (6-22) Glucose 189 H (80-110) mg/dL Hemoglobin A1c (4.0-6.0) % Lactate (0.7-2.1) mmol/L Calcium 10.1 (8.4-10.2) mg/dL Total Bilirubin 0.9 (0.2-1.3) mg/dL AST 26 (14-36) IU/L ALT 25 (9-52) IU/L Alkaline Phosphatase 118 (38-126) U/L Total Protein 8.4 H (6.3-8.2) g/dL Albumin 4.9 (3.5-5.0) g/dL Globulin 3.5 (1.7-4.1) g/dL Albumin/Globulin Ratio 1.4 (1.0-2.8) Triglycerides (35-150) mg/dL Cholesterol (140-199) mg/dL LDL Cholesterol, Calc (<100) mg/dL HDL Cholesterol (40-60) mg/dL Lipase 44 (23-300) U/L Urine Ictotest (Negative) Urine RBC (0-5/HPF) Urine WBC (0-5/HPF) Ur Squamous Epith Cells (0-5/HPF) Ur Transition Epith Cell (0-5/HPF) Urine Bacteria (None) Urine Mucus (Negative) Ur Culture Indicated? Chlamy pneumoniae PCR (Not Detect) Adenovirus (PCR) (Not Detect) B.parapertussis DNA PCR (Not Detect) Coronavirus OC43 (PCR) (Not Detect) Coronavirus HKU1 (PCR) (Not Detect) Coronavirus 229E (PCR) (Not Detect) Coronavirus NL63 (PCR) (Not Detect) Human Metapneumovir PCR (Not Detect) Influenza Type A (PCR) (Not Detect) Influenza Type B (PCR) (Not Detect) M. pneumoniae (PCR) (Not Detect) Parainfluenza 1 (PCR) (Not Detect) Parainfluenza 2 (PCR) (Not Detect) Parainfluenza 3 (PCR) (Not Detect) Parainfluenza 4 (PCR) (Not Detect) RSV (PCR) (Not Detect) Entero/Rhino (PCR) (Not Detect) 12/26/18 12/26/18 12/27/18 Range/Units 13:25 17:15 00:03 WBC (4.5-11.0) X10^3/uL RBC (4.0-5.2) X10^6/uL Hgb (12.0-16.0) g/dL Hct (36-46) % MCV (80-100) fL MCH (26-34) PG MCHC (30-36) % RDW (11.6-14.8) % Plt Count (150-400) X10^3/uL Neut % (Auto) (50-75) % Lymph % (Auto) (25-40) % [place] % (Auto) (3-14) % Eos % (Auto) (2-4) % Baso % (Auto) (0-2) % Neut # (Auto) (3648-9287) /uL Lymph # (Auto) (1450-1865) /uL [place] # (Auto) (0-900) /uL Eos # (Auto) (0-450) /uL Baso # (Auto) (0-100) /uL PT (10.1-12.7) SECONDS INR (0.9-1.3) APTT (26.4-36.2) SECONDS Sodium (137-145) mmol/L Potassium (3.4-5.1) mmol/L Chloride (98-107) mmol/L Carbon Dioxide (22-32) mmol/L BUN (7-17) mg/dL Creatinine (0.52-1.04) mg/dL Estimated GFR (>60) mL/min BUN/Creatinine Ratio (6-22) Glucose (80-110) mg/dL Hemoglobin A1c (4.0-6.0) % Lactate 1.5 (0.7-2.1) mmol/L Calcium (8.4-10.2) mg/dL Total Bilirubin (0.2-1.3) mg/dL AST (14-36) IU/L ALT (9-52) IU/L Alkaline Phosphatase (38-126) U/L Total Protein (6.3-8.2) g/dL Albumin (3.5-5.0) g/dL Globulin (1.7-4.1) g/dL Albumin/Globulin Ratio (1.0-2.8) Triglycerides (35-150) mg/dL Cholesterol (140-199) mg/dL LDL Cholesterol, Calc (<100) mg/dL HDL Cholesterol (40-60) mg/dL Lipase (23-300) U/L Urine Ictotest Negative (Negative) Urine RBC 0-1/hpf (0-5/HPF) Urine WBC 5-10/hpf H (0-5/HPF) Ur Squamous Epith Cells 1-5 /hpf (0-5/HPF) Ur Transition Epith Cell 0-1/hpf (0-5/HPF) Urine Bacteria Few (2-10) H (None) Urine Mucus 2+ H (Negative) Ur Culture Indicated? Specimen cultured Chlamy pneumoniae PCR Not detected (Not Detect) Adenovirus (PCR) Not detected (Not Detect) B.parapertussis DNA PCR Not detected (Not Detect) Coronavirus OC43 (PCR) Not detected (Not Detect) Coronavirus HKU1 (PCR) Not detected (Not Detect) Coronavirus 229E (PCR) Not detected (Not Detect) Coronavirus NL63 (PCR) Not detected (Not Detect) Human Metapneumovir PCR Not detected (Not Detect) Influenza Type A (PCR) Not detected (Not Detect) Influenza Type B (PCR) Not detected (Not Detect) M. pneumoniae (PCR) Not detected (Not Detect) Parainfluenza 1 (PCR) Not detected (Not Detect) Parainfluenza 2 (PCR) Not detected (Not Detect) Parainfluenza 3 (PCR) Not detected (Not Detect) Parainfluenza 4 (PCR) Not detected (Not Detect) RSV (PCR) Not detected (Not Detect) Entero/Rhino (PCR) Not detected (Not Detect) 12/27/18 12/27/18 12/27/18 Range/Units 05:00 05:00 05:00 WBC 8.3 (4.5-11.0) X10^3/uL RBC 4.75 (4.0-5.2) X10^6/uL Hgb 12.9 (12.0-16.0) g/dL Hct 39.8 (36-46) % MCV 83.8 (80-100) fL MCH 27.1 (26-34) PG MCHC 32.4 (30-36) % RDW 15.3 H (11.6-14.8) % Plt Count 258 (150-400) X10^3/uL Neut % (Auto) 72.9 (50-75) % Lymph % (Auto) 16.0 L (25-40) % [place] % (Auto) 9.7 (3-14) % Eos % (Auto) 1.1 L (2-4) % Baso % (Auto) 0.3 (0-2) % Neut # (Auto) 6100 (6320-1492) /uL Lymph # (Auto) 1300 (4500-4949) /uL [place] # (Auto) 800 (0-900) /uL Eos # (Auto) 100 (0-450) /uL Baso # (Auto) 0 (0-100) /uL PT (10.1-12.7) SECONDS INR (0.9-1.3) APTT (26.4-36.2) SECONDS Sodium 138 (137-145) mmol/L Potassium 3.8 (3.4-5.1) mmol/L Chloride 106 (98-107) mmol/L Carbon Dioxide 24 (22-32) mmol/L BUN 17 (7-17) mg/dL Creatinine 0.60 (0.52-1.04) mg/dL Estimated GFR > 60.0 (>60) mL/min BUN/Creatinine Ratio 28.3 H (6-22) Glucose 156 H (80-110) mg/dL Hemoglobin A1c 7.6 H (4.0-6.0) % Lactate (0.7-2.1) mmol/L Calcium 8.6 (8.4-10.2) mg/dL Total Bilirubin (0.2-1.3) mg/dL AST (14-36) IU/L ALT (9-52) IU/L Alkaline Phosphatase (38-126) U/L Total Protein (6.3-8.2) g/dL Albumin (3.5-5.0) g/dL Globulin (1.7-4.1) g/dL Albumin/Globulin Ratio (1.0-2.8) Triglycerides (35-150) mg/dL Cholesterol (140-199) mg/dL LDL Cholesterol, Calc (<100) mg/dL HDL Cholesterol (40-60) mg/dL Lipase (23-300) U/L Urine Ictotest (Negative) Urine RBC (0-5/HPF) Urine WBC (0-5/HPF) Ur Squamous Epith Cells (0-5/HPF) Ur Transition Epith Cell (0-5/HPF) Urine Bacteria (None) Urine Mucus (Negative) Ur Culture Indicated? Chlamy pneumoniae PCR (Not Detect) Adenovirus (PCR) (Not Detect) B.parapertussis DNA PCR (Not Detect) Coronavirus OC43 (PCR) (Not Detect) Coronavirus HKU1 (PCR) (Not Detect) Coronavirus 229E (PCR) (Not Detect) Coronavirus NL63 (PCR) (Not Detect) Human Metapneumovir PCR (Not Detect) Influenza Type A (PCR) (Not Detect) Influenza Type B (PCR) (Not Detect) M. pneumoniae (PCR) (Not Detect) Parainfluenza 1 (PCR) (Not Detect) Parainfluenza 2 (PCR) (Not Detect) Parainfluenza 3 (PCR) (Not Detect) Parainfluenza 4 (PCR) (Not Detect) RSV (PCR) (Not Detect) Entero/Rhino (PCR) (Not Detect) 12/27/18 Range/Units 05:00 WBC (4.5-11.0) X10^3/uL RBC (4.0-5.2) X10^6/uL Hgb (12.0-16.0) g/dL Hct (36-46) % MCV (80-100) fL MCH (26-34) PG MCHC (30-36) % RDW (11.6-14.8) % Plt Count (150-400) X10^3/uL Neut % (Auto) (50-75) % Lymph % (Auto) (25-40) % Randolph % (Auto) (3-14) % Eos % (Auto) (2-4) % Baso % (Auto) (0-2) % Neut # (Auto) (4463-6613) /uL Lymph # (Auto) (1452-5622) /uL Randolph # (Auto) (0-900) /uL Eos # (Auto) (0-450) /uL Baso # (Auto) (0-100) /uL PT (10.1-12.7) SECONDS INR (0.9-1.3) APTT (26.4-36.2) SECONDS Sodium (137-145) mmol/L Potassium (3.4-5.1) mmol/L Chloride (98-107) mmol/L Carbon Dioxide (22-32) mmol/L BUN (7-17) mg/dL Creatinine (0.52-1.04) mg/dL Estimated GFR (>60) mL/min BUN/Creatinine Ratio (6-22) Glucose (80-110) mg/dL Hemoglobin A1c (4.0-6.0) % Lactate (0.7-2.1) mmol/L Calcium (8.4-10.2) mg/dL Total Bilirubin (0.2-1.3) mg/dL AST (14-36) IU/L ALT (9-52) IU/L Alkaline Phosphatase (38-126) U/L Total Protein (6.3-8.2) g/dL Albumin (3.5-5.0) g/dL Globulin (1.7-4.1) g/dL Albumin/Globulin Ratio (1.0-2.8) Triglycerides 64 (35-150) mg/dL Cholesterol 171 (140-199) mg/dL LDL Cholesterol, Calc 105 H (<100) mg/dL HDL Cholesterol 53 (40-60) mg/dL Lipase (23-300) U/L Urine Ictotest (Negative) Urine RBC (0-5/HPF) Urine WBC (0-5/HPF) Ur Squamous Epith Cells (0-5/HPF) Ur Transition Epith Cell (0-5/HPF) Urine Bacteria (None) Urine Mucus (Negative) Ur Culture Indicated? Chlamy pneumoniae PCR (Not Detect) Adenovirus (PCR) (Not Detect) B.parapertussis DNA PCR (Not Detect) Coronavirus OC43 (PCR) (Not Detect) Coronavirus HKU1 (PCR) (Not Detect) Coronavirus 229E (PCR) (Not Detect) Coronavirus NL63 (PCR) (Not Detect) Human Metapneumovir PCR (Not Detect) Influenza Type A (PCR) (Not Detect) Influenza Type B (PCR) (Not Detect) M. pneumoniae (PCR) (Not Detect) Parainfluenza 1 (PCR) (Not Detect) Parainfluenza 2 (PCR) (Not Detect) Parainfluenza 3 (PCR) (Not Detect) Parainfluenza 4 (PCR) (Not Detect) RSV (PCR) (Not Detect) Entero/Rhino (PCR) (Not Detect) Point of care testing: Urine Dip Bedside Urine Glucose Negative Bedside Urine Bilirubin ++ 2 Bedside Urine Ketone +/- 5 Urine Specific [place] 1.030 Bedside Urine Occult Blood - Negative Bedside Urine pH 6.0 Bedside Urine Protein + 30 Bedside Urine Urobilinogen +/- 1mg Bedside Urine Nitrite - Negative Bedside Urine Leukocytes - Negative Esterase Imaging Data Abdominal x-ray: Radiologist's impression: Geetha Sheriff 73 [address] [place] [address] XRay Report Signed Patient: Geetha Sheriff GMR#: [id number] : 7Acct:[id number] Age/Sex: 73 / FDate of Service: 12/26/18 Loc: ED Accession Number: [id number] Procedure: XR acute abdomen series Ordering Provider: Barbra Werner P.A-C PROCEDURE: XR ACUTE ABDOMEN SERIES INDICATIONS: diverticulitis, h/o perforation TECHNIQUE: One view chest and two views of the abdomen were acquired. COMPARISON: None. FINDINGS: Surgical changes and devices: Scattered surgical clips are seen within the abdomen. Chest: Lungs are clear. Heart size is normal. No pleural effusions. There is aortic atherosclerosis. No pneumothorax is evident. No pneumoperitoneum. Abdomen: Multiple air fluid levels are identified within the abdomen with associated air filled distended small bowel loops. The largest are located within the left upper quadrant and measure up to 3.7 cm in diameter. There is stool are seen within the colon. No suspicious calcifications. Visualized solid organ contours appear normal. Bones: No suspicious bony lesions. Prominent levoconvex curvature of the lumbar spine is present. IMPRESSION: 1. Small bowel ileus versus partial obstruction. The need for better characterization utilizing CT may be determined clinically. 2. No acute cardiopulmonary process. Dictated by: Twin Russ M.D. on 12/26/2018 at 12:35 Approved by: Twin Russ M.D. on 12/26/2018 at 12:37 CT scan - abdomen: Radiologist's impression: The patient was transferred for CT abdomen and pelvis with contrast to an outside facility due to unavailability of CT scanner here. CT showed SBO within a supraumbilical hernia. There is a transition point. Stomach is not distended. Full report will be scanned into chart ECG Data Attestation: I personally reviewed and interpreted this ECG as follows: (Sinus tachycardia with rate 108, right bundle branch pattern) Prior ECG tracings: not available for review <Ann Tillman DO - Last Filed: 12/27/18 08:56> Lab Data Lab Results 12/26/18 12/26/18 12/26/18 Range/Units 13:25 13:25 13:25 WBC 14.5 H (4.5-11.0) X10^3/uL RBC 5.40 H (4.0-5.2) X10^6/uL Hgb 14.8 (12.0-16.0) g/dL Hct 45.2 (36-46) % MCV 83.8 (80-100) fL MCH 27.4 (26-34) PG MCHC 32.8 (30-36) % RDW 15.3 H (11.6-14.8) % Plt Count 293 (150-400) X10^3/uL Neut % (Auto) 87.8 H (50-75) % Lymph % (Auto) 7.0 L (25-40) % Randolph % (Auto) 4.5 (3-14) % Eos % (Auto) 0.3 L (2-4) % Baso % (Auto) 0.4 (0-2) % Neut # (Auto) 96203 H (0176-1489) /uL Lymph # (Auto) 1000 L (6175-5657) /uL Randolph # (Auto) 700 (0-900) /uL Eos # (Auto) 0 (0-450) /uL Baso # (Auto) 100 (0-100) /uL PT 10.9 (10.1-12.7) SECONDS INR 0.9 (0.9-1.3) APTT 28 (26.4-36.2) SECONDS Sodium 138 (137-145) mmol/L Potassium 4.1 (3.4-5.1) mmol/L Chloride 101 (98-107) mmol/L Carbon Dioxide 25 (22-32) mmol/L BUN 16 (7-17) mg/dL Creatinine 0.60 (0.52-1.04) mg/dL Estimated GFR > 60.0 (>60) mL/min BUN/Creatinine Ratio 26.7 H (6-22) Glucose 189 H (80-110) mg/dL Hemoglobin A1c (4.0-6.0) % Lactate (0.7-2.1) mmol/L Calcium 10.1 (8.4-10.2) mg/dL Total Bilirubin 0.9 (0.2-1.3) mg/dL AST 26 (14-36) IU/L ALT 25 (9-52) IU/L Alkaline Phosphatase 118 (38-126) U/L Total Protein 8.4 H (6.3-8.2) g/dL Albumin 4.9 (3.5-5.0) g/dL Globulin 3.5 (1.7-4.1) g/dL Albumin/Globulin Ratio 1.4 (1.0-2.8) Triglycerides (35-150) mg/dL Cholesterol (140-199) mg/dL LDL Cholesterol, Calc (<100) mg/dL HDL Cholesterol (40-60) mg/dL Lipase 44 (23-300) U/L Urine Ictotest (Negative) Urine RBC (0-5/HPF) Urine WBC (0-5/HPF) Ur Squamous Epith Cells (0-5/HPF) Ur Transition Epith Cell (0-5/HPF) Urine Bacteria (None) Urine Mucus (Negative) Ur Culture Indicated? Chlamy pneumoniae PCR (Not Detect) Adenovirus (PCR) (Not Detect) B.parapertussis DNA PCR (Not Detect) Coronavirus OC43 (PCR) (Not Detect) Coronavirus HKU1 (PCR) (Not Detect) Coronavirus 229E (PCR) (Not Detect) Coronavirus NL63 (PCR) (Not Detect) Human Metapneumovir PCR (Not Detect) Influenza Type A (PCR) (Not Detect) Influenza Type B (PCR) (Not Detect) M. pneumoniae (PCR) (Not Detect) Parainfluenza 1 (PCR) (Not Detect) Parainfluenza 2 (PCR) (Not Detect) Parainfluenza 3 (PCR) (Not Detect) Parainfluenza 4 (PCR) (Not Detect) RSV (PCR) (Not Detect) Entero/Rhino (PCR) (Not Detect) 12/26/18 12/26/18 12/27/18 Range/Units 13:25 17:15 00:03 WBC (4.5-11.0) X10^3/uL RBC (4.0-5.2) X10^6/uL Hgb (12.0-16.0) g/dL Hct (36-46) % MCV (80-100) fL MCH (26-34) PG MCHC (30-36) % RDW (11.6-14.8) % Plt Count (150-400) X10^3/uL Neut % (Auto) (50-75) % Lymph % (Auto) (25-40) % Randolph % (Auto) (3-14) % Eos % (Auto) (2-4) % Baso % (Auto) (0-2) % Neut # (Auto) (4754-3768) /uL Lymph # (Auto) (4551-7054) /uL Randolph # (Auto) (0-900) /uL Eos # (Auto) (0-450) /uL Baso # (Auto) (0-100) /uL PT (10.1-12.7) SECONDS INR (0.9-1.3) APTT (26.4-36.2) SECONDS Sodium (137-145) mmol/L Potassium (3.4-5.1) mmol/L Chloride (98-107) mmol/L Carbon Dioxide (22-32) mmol/L BUN (7-17) mg/dL Creatinine (0.52-1.04) mg/dL Estimated GFR (>60) mL/min BUN/Creatinine Ratio (6-22) Glucose (80-110) mg/dL Hemoglobin A1c (4.0-6.0) % Lactate 1.5 (0.7-2.1) mmol/L Calcium (8.4-10.2) mg/dL Total Bilirubin (0.2-1.3) mg/dL AST (14-36) IU/L ALT (9-52) IU/L Alkaline Phosphatase (38-126) U/L Total Protein (6.3-8.2) g/dL Albumin (3.5-5.0) g/dL Globulin (1.7-4.1) g/dL Albumin/Globulin Ratio (1.0-2.8) Triglycerides (35-150) mg/dL Cholesterol (140-199) mg/dL LDL Cholesterol, Calc (<100) mg/dL HDL Cholesterol (40-60) mg/dL Lipase (23-300) U/L Urine Ictotest Negative (Negative) Urine RBC 0-1/hpf (0-5/HPF) Urine WBC 5-10/hpf H (0-5/HPF) Ur Squamous Epith Cells 1-5 /hpf (0-5/HPF) Ur Transition Epith Cell 0-1/hpf (0-5/HPF) Urine Bacteria Few (2-10) H (None) Urine Mucus 2+ H (Negative) Ur Culture Indicated? Specimen cultured Chlamy pneumoniae PCR Not detected (Not Detect) Adenovirus (PCR) Not detected (Not Detect) B.parapertussis DNA PCR Not detected (Not Detect) Coronavirus OC43 (PCR) Not detected (Not Detect) Coronavirus HKU1 (PCR) Not detected (Not Detect) Coronavirus 229E (PCR) Not detected (Not Detect) Coronavirus NL63 (PCR) Not detected (Not Detect) Human Metapneumovir PCR Not detected (Not Detect) Influenza Type A (PCR) Not detected (Not Detect) Influenza Type B (PCR) Not detected (Not Detect) M. pneumoniae (PCR) Not detected (Not Detect) Parainfluenza 1 (PCR) Not detected (Not Detect) Parainfluenza 2 (PCR) Not detected (Not Detect) Parainfluenza 3 (PCR) Not detected (Not Detect) Parainfluenza 4 (PCR) Not detected (Not Detect) RSV (PCR) Not detected (Not Detect) Entero/Rhino (PCR) Not detected (Not Detect) 12/27/18 12/27/18 12/27/18 Range/Units 05:00 05:00 05:00 WBC 8.3 (4.5-11.0) X10^3/uL RBC 4.75 (4.0-5.2) X10^6/uL Hgb 12.9 (12.0-16.0) g/dL Hct 39.8 (36-46) % MCV 83.8 (80-100) fL MCH 27.1 (26-34) PG MCHC 32.4 (30-36) % RDW 15.3 H (11.6-14.8) % Plt Count 258 (150-400) X10^3/uL Neut % (Auto) 72.9 (50-75) % Lymph % (Auto) 16.0 L (25-40) % Randolph % (Auto) 9.7 (3-14) % Eos % (Auto) 1.1 L (2-4) % Baso % (Auto) 0.3 (0-2) % Neut # (Auto) 6100 (0258-8811) /uL Lymph # (Auto) 1300 (1625-9132) /uL Randolph # (Auto) 800 (0-900) /uL Eos # (Auto) 100 (0-450) /uL Baso # (Auto) 0 (0-100) /uL PT (10.1-12.7) SECONDS INR (0.9-1.3) APTT (26.4-36.2) SECONDS Sodium 138 (137-145) mmol/L Potassium 3.8 (3.4-5.1) mmol/L Chloride 106 (98-107) mmol/L Carbon Dioxide 24 (22-32) mmol/L BUN 17 (7-17) mg/dL Creatinine 0.60 (0.52-1.04) mg/dL Estimated GFR > 60.0 (>60) mL/min BUN/Creatinine Ratio 28.3 H (6-22) Glucose 156 H (80-110) mg/dL Hemoglobin A1c 7.6 H (4.0-6.0) % Lactate (0.7-2.1) mmol/L Calcium 8.6 (8.4-10.2) mg/dL Total Bilirubin (0.2-1.3) mg/dL AST (14-36) IU/L ALT (9-52) IU/L Alkaline Phosphatase (38-126) U/L Total Protein (6.3-8.2) g/dL Albumin (3.5-5.0) g/dL Globulin (1.7-4.1) g/dL Albumin/Globulin Ratio (1.0-2.8) Triglycerides (35-150) mg/dL Cholesterol (140-199) mg/dL LDL Cholesterol, Calc (<100) mg/dL HDL Cholesterol (40-60) mg/dL Lipase (23-300) U/L Urine Ictotest (Negative) Urine RBC (0-5/HPF) Urine WBC (0-5/HPF) Ur Squamous Epith Cells (0-5/HPF) Ur Transition Epith Cell (0-5/HPF) Urine Bacteria (None) Urine Mucus (Negative) Ur Culture Indicated? Chlamy pneumoniae PCR (Not Detect) Adenovirus (PCR) (Not Detect) B.parapertussis DNA PCR (Not Detect) Coronavirus OC43 (PCR) (Not Detect) Coronavirus HKU1 (PCR) (Not Detect) Coronavirus 229E (PCR) (Not Detect) Coronavirus NL63 (PCR) (Not Detect) Human Metapneumovir PCR (Not Detect) Influenza Type A (PCR) (Not Detect) Influenza Type B (PCR) (Not Detect) M. pneumoniae (PCR) (Not Detect) Parainfluenza 1 (PCR) (Not Detect) Parainfluenza 2 (PCR) (Not Detect) Parainfluenza 3 (PCR) (Not Detect) Parainfluenza 4 (PCR) (Not Detect) RSV (PCR) (Not Detect) Entero/Rhino (PCR) (Not Detect) 12/27/18 Range/Units 05:00 WBC (4.5-11.0) X10^3/uL RBC (4.0-5.2) X10^6/uL Hgb (12.0-16.0) g/dL Hct (36-46) % MCV (80-100) fL MCH (26-34) PG MCHC (30-36) % RDW (11.6-14.8) % Plt Count (150-400) X10^3/uL Neut % (Auto) (50-75) % Lymph % (Auto) (25-40) % Randolph % (Auto) (3-14) % Eos % (Auto) (2-4) % Baso % (Auto) (0-2) % Neut # (Auto) (7749-1528) /uL Lymph # (Auto) (9198-6139) /uL Randolph # (Auto) (0-900) /uL Eos # (Auto) (0-450) /uL Baso # (Auto) (0-100) /uL PT (10.1-12.7) SECONDS INR (0.9-1.3) APTT (26.4-36.2) SECONDS Sodium (137-145) mmol/L Potassium (3.4-5.1) mmol/L Chloride (98-107) mmol/L Carbon Dioxide (22-32) mmol/L BUN (7-17) mg/dL Creatinine (0.52-1.04) mg/dL Estimated GFR (>60) mL/min BUN/Creatinine Ratio (6-22) Glucose (80-110) mg/dL Hemoglobin A1c (4.0-6.0) % Lactate (0.7-2.1) mmol/L Calcium (8.4-10.2) mg/dL Total Bilirubin (0.2-1.3) mg/dL AST (14-36) IU/L ALT (9-52) IU/L Alkaline Phosphatase (38-126) U/L Total Protein (6.3-8.2) g/dL Albumin (3.5-5.0) g/dL Globulin (1.7-4.1) g/dL Albumin/Globulin Ratio (1.0-2.8) Triglycerides 64 (35-150) mg/dL Cholesterol 171 (140-199) mg/dL LDL Cholesterol, Calc 105 H (<100) mg/dL HDL Cholesterol 53 (40-60) mg/dL Lipase (23-300) U/L Urine Ictotest (Negative) Urine RBC (0-5/HPF) Urine WBC (0-5/HPF) Ur Squamous Epith Cells (0-5/HPF) Ur Transition Epith Cell (0-5/HPF) Urine Bacteria (None) Urine Mucus (Negative) Ur Culture Indicated? Chlamy pneumoniae PCR (Not Detect) Adenovirus (PCR) (Not Detect) B.parapertussis DNA PCR (Not Detect) Coronavirus OC43 (PCR) (Not Detect) Coronavirus HKU1 (PCR) (Not Detect) Coronavirus 229E (PCR) (Not Detect) Coronavirus NL63 (PCR) (Not Detect) Human Metapneumovir PCR (Not Detect) Influenza Type A (PCR) (Not Detect) Influenza Type B (PCR) (Not Detect) M. pneumoniae (PCR) (Not Detect) Parainfluenza 1 (PCR) (Not Detect) Parainfluenza 2 (PCR) (Not Detect) Parainfluenza 3 (PCR) (Not Detect) Parainfluenza 4 (PCR) (Not Detect) RSV (PCR) (Not Detect) Entero/Rhino (PCR) (Not Detect) Point of care testing: Urine Dip Bedside Urine Glucose Negative Bedside Urine Bilirubin ++ 2 Bedside Urine Ketone +/- 5 Urine Specific [place] 1.030 Bedside Urine Occult Blood - Negative Bedside Urine pH 6.0 Bedside Urine Protein + 30 Bedside Urine Urobilinogen +/- 1mg Bedside Urine Nitrite - Negative Bedside Urine Leukocytes - Negative Esterase Imaging Data Abdominal x-ray: Radiologist's impression: PROCEDURE: XR ACUTE ABDOMEN SERIES INDICATIONS: diverticulitis, h/o perforation TECHNIQUE: One view chest and two views of the abdomen were acquired. COMPARISON: None. FINDINGS: Surgical changes and devices: Scattered surgical clips are seen within the abdomen. Chest: Lungs are clear. Heart size is normal. No pleural effusions. There is aortic atherosclerosis. No pneumothorax is evident. No pneumoperitoneum. Abdomen: Multiple air fluid levels are identified within the abdomen with associated air filled distended small bowel loops. The largest are located within the left upper quadrant and measure up to 3.7 cm in diameter. There is stool are seen within the colon. No suspicious calcifications. Visualized solid organ contours appear normal. Bones: No suspicious bony lesions. Prominent levoconvex curvature of the lumbar spine is present. IMPRESSION: 1. Small bowel ileus versus partial obstruction. The need for better characterization utilizing CT may be determined clinically. 2. No acute cardiopulmonary process. Dictated by: Twin Russ M.D. on 12/26/2018 at 12:35 Discharge Plan Departure Patient Disposition: Admitted As Inpatient Clinical Impression: SBO (small bowel obstruction), Hernia, umbilical, with obstruction Discharge Date/Time: 12/26/18 22:15 Interventions: ED Discharge Assessment Last Done: 12/26/18 22:35 Admit Date/Time: 12/26/18 21:43 Admit Provider: Elie Chow <Ann Tillman DO - Last Filed: 12/27/18 08:56> Cosign ED Attending Cosignature Attestation: I was immediately available in the department for consultation. Documentation has been reviewed. I agree with assessment and plan.
[2018-12-26 13:33] LABS: Add Manual Diff / Slide Review NO; Basophils Absolute Auto 100 /uL (0-100); Basophils Percent Auto 0.4 % (0-2); Eosinophils Absolute Auto 0 /uL (0-450); Eosinophils Percent Auto 0.3 % (2-4); Hematocrit 45.2 % (36-46); Hemoglobin 14.8 g/dL (12.0-16.0); Lymphocytes Absolute Auto 1000 /uL (1100-4500); Mean Corpuscular HGB Conc 32.8 % (30-36); Mean Corpuscular Hemoglobin 27.4 PG (26-34); Mean Corpuscular Volume 83.8 fL (80-100); Monocytes Absolute Auto 700 /uL (0-900); Monocytes Percent Auto 4.5 % (3-14); Neutrophils Absolute Auto 12700 /uL (1500-7000); Neutrophils Percent Auto 87.8 % (50-75); Platelet Count 293 X10^3/uL (150-400); Red Cell Distribution Width 15.3 % (11.6-14.8); White Blood Cell Count 14.5 X10^3/uL (4.5-11.0)
[2018-12-26] MEDS: KETOROLAC 60 MG/2 ML VIAL 15 MG IV ×2 (13:37→18:18)
[2018-12-26] MEDS: SODIUM CHLORIDE 0.9% 1,000 ML 1000 ML IV ×2 (13:37→18:18)
[2018-12-26] MEDS: HYDROMORPHONE 1 MG INJ 0.5 MG IV (13:37)
[2018-12-26 13:41] LABS: INR 0.9 (0.9-1.3); Prothrombin Time 10.9 SECONDS (10.1-12.7)
[2018-12-26 13:44] LABS: Lactate (Lactic Acid) 1.5 mmol/L (0.7-2.1); PTT Partial Thromboplastin Tim 28 SECONDS (26.4-36.2)
[2018-12-26 13:45] LABS: Alanine Aminotransferase 25 IU/L (9-52); Albumin 4.9 g/dL (3.5-5.0); Albumin Globulin Ratio 1.4 (1.0-2.8); Alkaline Phosphatase 118 U/L (38-126); Aspartate Aminotransferase 26 IU/L (14-36); BUN Creatinine Ratio 26.7 (6-22); Bilirubin Total 0.9 mg/dL (0.2-1.3); Blood Urea Nitrogen 16 mg/dL (7-17); Calcium 10.1 mg/dL (8.4-10.2); Carbon Dioxide 25 mmol/L (22-32); Chloride 101 mmol/L (98-107); Estimated Glomerular Filt Rate > 60.0 mL/min (>60); Globulin 3.5 g/dL (1.7-4.1); Glucose 189 mg/dL (80-110); HEMOLYSIS 22 (0-50); Lipase 44 U/L (23-300); Potassium 4.1 mmol/L (3.4-5.1); Sodium 138 mmol/L (137-145); Total Protein 8.4 g/dL (6.3-8.2)
[2018-12-26 18:04] LABS: Ictotest Urine Negative (Negative); RBC Urine 0-1/HPF (0-5/HPF); Squamous Epithelial Cell Urine 1-5 /HPF (0-5/HPF); Transitional Epi Cells Urine 0-1/HPF (0-5/HPF); WBC Urine 5-10/HPF (0-5/HPF)
[2018-12-26 18:05] LABS: Bacteria Urine Few (2-10); Culture Indicated Urine Specimen Cultured; Mucus Urine 2+ (Negative)
--- NOTE | 2018-12-26 19:46 | PC.NURSE ---
1635 pt to [facility] via S transfer for CT scan
--- NOTE | 2018-12-26 22:49 | P.HP_ITS ---
History of Present Illness Date Patient Seen: 12/26/18 Time Patient Seen: 22:08 Chief complaint: severe cramps, diverticulitus Narrative: Geetha Fernandez is a 73-year-old female with a history of diverticulitis and history of perforation status post bowel resection and small bowel obstruction for adhesions presents today to the ER with abdominal pain. the patient had an onset of abdominal pain at 3:00 p.m. yesterday following eating lunch. She states she avoids foods that trigger her diverticulosis and had eaten a Balaji sandwich which had previously not been problematic. The patient states the pain she experienced was left central abdomen without radiation and characteristic of her prior bouts of diverticulitis. She reports no nausea vomiting no diarrhea or constipation. The patient states she typically ?rene through it? with her symptoms resolve within 12 hours but this time her pain has been getting progressively worse since onset. Patient also endorses a cough that has been dry nonproductive and rhinorrhea which is triggered coughing which is led to gagging and vomiting. The patient has experienced a couple episodes while in the ER stating is related to coughing and not abdominal pain. the patient has a previous history of ruptured diverticulum 25 years ago for which she had bowel resection followed by an abdominal surgery for small bowel obstruction related to adhesions. Patient presently has a history of post periumbilical hernia with entrapped loop of small bowel on CT scan and is not reducible. Patient has had minimal pain only experiencing pain on palpation of the abdomen. She reports no other complaints of recent cold or flu symptoms but does endorse rhinorrhea but no headache or sore throat. She denies chest pain or shortness of breath and has cough is described above. She denies complaints of nausea and only vomits with coughing at this time. She states her abdomen is somewhat more distended than usual and has palpable protruding left periumbilical hernia. She reports no radiation of the pain and states she has been passing flatus. She denies urinary symptoms of burning urgency or frequency. She does endorse a disequilibrium and feeling that she might fall and uses no assistive devices but must use handrails when ascending stairs. Patient History Medical History Hiatal hernia (Acute) Ventral hernia (Acute) Diverticulitis (Chronic) Surgical History Perforated diverticulum (Resolved) S/P colon resection (Resolved) Status post scar revision (Resolved) Social History household members: none Smoking Status: Never smoker Family & Social History Family History Father Cardiac disease Hx of CABG Dementia Mother Cancer Daughter In good health Safety & Behavioral: Feels Safe in Current Yes Environment Been Physically Hurt or No Threatened By a Person Tobacco & Substance use: Smoking Status Never smoker alcohol intake frequency 0-2 drinks per day Substance Use Type does not use Comment: The patient lives alone in a single family home. She is presently for 10 years after being for 38 years. Her parents both de ceased and she has 1 daughter who is in good health. Smoking: Patient has never smoked Alcohol: Patient has an occasional beer Substance use: The patient denies recreational pharmaceuticals, herbal or cannabis products Advanced directives: The patient has no formal advanced directive declaration but this time request to be FULL CODE. She designates her daughter Mary to be her surrogate decision maker. Meds Home Medications Medication Instructions Recorded Confirmed Type No Known Home Medications 12/26/18 12/26/18 History Allergies Allergy/AdvReac Type Severity Reaction Status Date / Time No Known Drug Allergies Allergy Verified 12/26/18 12:48 Review of Systems Review of Systems All systems reviewed & are unremarkable except as noted in HPI and below Exam Vital Signs (past 8 hours): - 12/26/18 15:00 12/26/18 16:30 12/26/18 18:30 Pulse Rate 101 H 102 H 104 H Respiratory Rate 22 18 Blood Pressure [Right Arm] 147/84 H 172/87 H 142/62 H Pulse Oximetry 94 94 96 12/26/18 20:31 12/26/18 21:00 Pulse Rate 101 H 90 Respiratory Rate 20 18 Blood Pressure [Right Arm] 159/87 H 171/86 H Pulse Oximetry 95 94 Oxygen Delivery Method Room Air Oxygen Flow Rate 1 Narrative Exam Narrative: GENERAL APPEARANCE: well developed, morbidly obese with BMI of 39.2, uncomfortable appearing but in no acute distress. HEAD: Normocephalic, atraumatic, no scalp lesions. EYES: pupils equal, round, reactive to light and accommodation, sclera non- icteric, extraocular movement intact without nystagmus. EARS: normal external structures, no ear pain NOSE: sinuses non tender to percussion, clear rhinorrhea ORAL CAVITY: mucosa moist without lesions or exudate, palate normal, tongue in midline. THROAT: normal, no erythema, no exudate, pharynx normal, uvula midline. NECK/THYROID: neck supple, no carotid bruit, no thyromegaly, trachea midline. LYMPH NODES: no cervical or supraclavicular lymphadenopathy. SKIN: warm and dry, no suspicious lesions, no rashes, good turgor. HEART: regular rate and rhythm, S1-S2 without murmur, rubs, gallops, brisk capillary refill, trace left pedal edema LUNGS: clear to auscultation bilaterally, no coarseness crackles, and expiratory wheezing bilateral bases, mild wheezing appreciated with coughing, clear phlegm CHEST: Symmetrical movement, no accessory muscle use ABDOMEN: Firm and distended, palpable left periumbilical hernia, mild epigastric and left abdominal tenderness on palpation, no guarding or peritoneal signs, bowel tones present in all 4 quadrants but reduced left lower quadrant. BACK: Normal curvature, nontender to palpation, no CVA tenderness on percussion EXTREMITIES: moves all extremities, strength is 5/5 and symmetrical, well perfused. NEUROLOGIC: AAO x4, no focal neurologic deficits, cranial nerves II-XII grossly intact , motor strength normal upper and lower extremities, sensory exam intact to light touch, hearing grossly normal to speech. PSYCH: alert, cognitive function intact, good eye contact, stable mood with congruent affect Objective Labs Result Diagrams: 12/26/18 13:25 12/26/18 13:25 Labs: Laboratory Results - last 24 hr 12/26/18 12/26/18 12/26/18 13:25 13:25 13:25 WBC 14.5 H RBC 5.40 H Hgb 14.8 Hct 45.2 MCV 83.8 MCH 27.4 MCHC 32.8 RDW 15.3 H Plt Count 293 Neut % (Auto) 87.8 H Lymph % (Auto) 7.0 L Taylor % (Auto) 4.5 Eos % (Auto) 0.3 L Baso % (Auto) 0.4 Neut # (Auto) 86894 H Lymph # (Auto) 1000 L Taylor # (Auto) 700 Eos # (Auto) 0 Baso # (Auto) 100 PT 10.9 INR 0.9 APTT 28 Sodium 138 Potassium 4.1 Chloride 101 Carbon Dioxide 25 BUN 16 Creatinine 0.60 Estimated GFR > 60.0 BUN/Creatinine Ratio 26.7 H Glucose 189 H Lactate Calcium 10.1 Total Bilirubin 0.9 AST 26 ALT 25 Alkaline Phosphatase 118 Total Protein 8.4 H Albumin 4.9 Globulin 3.5 Albumin/Globulin Ratio 1.4 Lipase 44 Urine Ictotest Urine RBC Urine WBC Ur Squamous Epith Cells Ur Transition Epith Cell Urine Bacteria Urine Mucus Ur Culture Indicated? 12/26/18 12/26/18 13:25 17:15 WBC RBC Hgb Hct MCV MCH MCHC RDW Plt Count Neut % (Auto) Lymph % (Auto) Taylor % (Auto) Eos % (Auto) Baso % (Auto) Neut # (Auto) Lymph # (Auto) Taylor # (Auto) Eos # (Auto) Baso # (Auto) PT INR APTT Sodium Potassium Chloride Carbon Dioxide BUN Creatinine Estimated GFR BUN/Creatinine Ratio Glucose Lactate 1.5 Calcium Total Bilirubin AST ALT Alkaline Phosphatase Total Protein Albumin Globulin Albumin/Globulin Ratio Lipase Urine Ictotest Negative Urine RBC 0-1/hpf Urine WBC 5-10/hpf H Ur Squamous Epith Cells 1-5 /hpf Ur Transition Epith Cell 0-1/hpf Urine Bacteria Few (2-10) H Urine Mucus 2+ H Ur Culture Indicated? Specimen cultured PATIENT NAME: GEETHA FERNANDEZ : 1945 GENDER: F EXAM DATE: 12/26/2018 19:24 ORDERED FROM: [facility] ORDERING PHYSICIAN: ADEABYO MULLINS CC: ?- ? ? ? CONTRAST: 100CC ISOVUE 300 READING STATION ID: [id number] mGy: PROCEDURE: CT ABDOMEN PELVIS WITH CONTRAST INDICATIONS: Left lower quadrant pain TECHNIQUE: After the administration of intravenous contrast, 5 mm thick sections acquired from the diaphragm to the symphysis. 5 mm coronal and sagittal reformats were acquired. For radiation dose reduction, the following was used: automated exposure control, adjustment of mA and/or kV according to patient size. COMPARISON: None. FINDINGS: Image quality: Excellent. ABDOMEN: Lung bases: Lung bases are clear. Heart size is normal. Calcification of the coronary vasculature. Solid organs: Liver is normal in size and enhancement. Gallbladder is within normal limits. Biliary system is non dilated. Pancreas enhances normally. Spleen is normal in size and enhancement. No adrenal nodules. Kidneys demonstrate normal size and enhancement, without hydronephrosis. Peritoneum and bowel: Small hiatal hernia. Stomach is nondistended. 70 mm diverticulum of the second portion of the duodenum. Mild distention of the duodenum. Moderate distention of the jejunum and proximal ileum. There appears to be a transition point between dilated and nondilated small bowel within the small bowel containing supraumbilical hernia. The mid and distal ileum are nondistended. Colon is nondistended. Diverticulosis of the colon is present. No evidence of acute diverticulitis. No free fluid or air. Continued Report - Page 2 of 2 PATIENT NAME: GEETHA FERNNADEZ : 1945 GENDER: F EXAM DATE: 12/26/2018 19:24 ORDERED FROM: [facility] ORDERING PHYSICIAN: ADEBAYO MULLINS CC: ?- ? ? ? CONTRAST: 100CC [address]OV[address] 300 READING STATION ID: [id number] mGy: Nodes and vessels: No retroperitoneal or mesenteric adenopathy by size criteria. Aorta and inferior vena cava are normal in size. Miscellaneous: There is a small bowel containing supraumbilical hernia measuring 13 cm, which contains a transition point between dilated and nondilated small bowel. PELVIS: Genitourinary: Bladder wall thickness is normal. Miscellaneous: No inguinal hernias or adenopathy. Bones: No suspicious bony lesions. No vertebral body compression fractures. IMPRESSION: 1. Small bowel obstruction. The point of obstruction appears to be within a small bowel containing supraumbilical hernia. 2. Appendix not seen. No evidence of appendicitis. 3. Small hiatal hernia. 4. Coronary artery disease. Dictated by: Yanick Muir M.D. on 12/26/2018 at 20:08 Approved by: Yanick Muir M.D. on 12/26/2018 at 20:13 Assessment & Plan Assessment & Plan narrative: The patient is admitted to the hospital related to abdominal pain secondary to bowel obstruction with bowel containing periumbilical hernia. 1. Small bowel obstruction, present on admission, acute -onset of abdominal pain yesterday at 3:00 p.m. no associated nausea with progressively worsening pain since onset -history of diverticulosis noted on CT without diverticulitis, air-fluid levels present, transition appears to be at the site of the small bowel containing periumbilical hernia -patient is nontoxic in appearance without vomiting, afebrile, elevated white count at 14.5, lactate 1.5, urinalysis is positive WBCs and bacteria is sent for culture -the hernia is unable to be reduced, thank you Dr. Corbin for general surgery consult, recommended initially conservative treatment -patient is NPO -IV normal saline at 125 cc/hour -Dilaudid ordered for pain as needed -surgery will re-evaluate in the morning 2. Periumbilical hernia, present on admission, chronic -patient with known history of abdominal hernia for several years, no history of prior bowel entrapment or complications -thank you to Dr. Corbin for surgical consult. 3. Cough, present on admission, acute -patient with cough for 1 month productive for clear fluid without complaints of dyspnea -associated clear rhinorrhea -coughing stimulates gag reflex which will trigger vomiting -mild end expiratory wheezing maintaining adequate oxygen saturation on room air -RT to consult and albuterol nebulized treatments ordered as needed -will obtain respiratory panel 4. Disequilibrium, present on admission, chronic -patient with history balance disorder but uses no assistive devices, she uses handrails for stability. -the patient reports no falls and does not impair activities of daily living -PT to evaluate and treat Patient is admitted to the hospital due to severity of symptoms and risk for complications. The patient is admitted as an inpatient with expected length of stay greater than 2 midnights. Time Spent With Patient Time with patient: 15-24 minutes Scores GCS Mary coma scale eye opening: Spontaneous Mary coma scale verbal response: Orientated Mary coma scale motor response: Obey commands [place] coma scale total score: 15
--- NOTE | 2018-12-26 22:54 | PC.NURSE ---
2250 - Patient admitted to room 224. Brought to room in wheelchair by nursing staff. Alert and oriented with pleasant affect. Denies pain or nausea at this time. Oriented to room and call light, call light within reach.
[2018-12-26] MEDS: SODIUM CHLORIDE 0.9% 1,000 ML 125 ML IV (23:40)
[2018-12-26] MEDS: SODIUM CHLORIDE 0.9% FLUSH 10 ML IV (23:55)
[2018-12-27 01:22] LABS: Adenovirus Not Detected (Not Detect); Bordetella pertussis Not Detected (Not Detect); Chlamydophila pneumoniae Not Detected (Not Detect); Coronavirus 229E Not Detected (Not Detect); Coronavirus HKU1 Not Detected (Not Detect); Coronavirus NL 63 Not Detected (Not Detect); Coronavirus OC43 Not Detected (Not Detect); Human Metapneumovirus Not Detected (Not Detect); Human Rhinovirus/Enterovirus Not Detected (Not Detect); Influenza A Not Detected (Not Detect); Influenza B Not Detected (Not Detect); Mycoplasma pneumoniae Not Detected (Not Detect); Parainfluenza Virus 1 Not Detected (Not Detect); Parainfluenza Virus 2 Not Detected (Not Detect); Parainfluenza Virus 3 Not Detected (Not Detect); Parainfluenza Virus 4 Not Detected (Not Detect); Respiratory Syncytial Virus Not Detected (Not Detect)
[2018-12-27 03:00] VITALS: BP 152/88; PULSE 96; RESP 16; TEMP 36.8; O2SAT 92
[2018-12-27] MEDS: HYDROMORPHONE 1 MG INJ IV (03:54)
[2018-12-27] MEDS: ONDANSETRON 4 MG/2 ML INJ IV (03:59)
--- NOTE | 2018-12-27 04:37 | PC.NURSE ---
Addendum entered and electronically signed by Jorge Agudelo R.N. 12/27/18 04:46: Pt was teary about pain level. Is sleeping now. Original Note: Pt vital signs stable. C/O abdominal pain and nausea. Dilaudid 1mg given at 0354, pain was 7/10.
[2018-12-27 05:14] LABS: Add Manual Diff / Slide Review NO; Basophils Absolute Auto 0 /uL (0-100); Basophils Percent Auto 0.3 % (0-2); Eosinophils Absolute Auto 100 /uL (0-450); Eosinophils Percent Auto 1.1 % (2-4); Hematocrit 39.8 % (36-46); Hemoglobin 12.9 g/dL (12.0-16.0); Lymphocytes Absolute Auto 1300 /uL (1100-4500); Mean Corpuscular HGB Conc 32.4 % (30-36); Mean Corpuscular Hemoglobin 27.1 PG (26-34); Mean Corpuscular Volume 83.8 fL (80-100); Monocytes Absolute Auto 800 /uL (0-900); Monocytes Percent Auto 9.7 % (3-14); Neutrophils Absolute Auto 6100 /uL (1500-7000); Neutrophils Percent Auto 72.9 % (50-75); Platelet Count 258 X10^3/uL (150-400); Red Blood Cell Count 4.75 X10^6/uL (4.0-5.2); Red Cell Distribution Width 15.3 % (11.6-14.8); White Blood Cell Count 8.3 X10^3/uL (4.5-11.0)
[2018-12-27 05:20] LABS: BUN Creatinine Ratio 28.3 (6-22); Blood Urea Nitrogen 17 mg/dL (7-17); Calcium 8.6 mg/dL (8.4-10.2); Carbon Dioxide 24 mmol/L (22-32); Chloride 106 mmol/L (98-107); Estimated Glomerular Filt Rate > 60.0 mL/min (>60); Glucose 156 mg/dL (80-110); HEMOLYSIS < 15 (0-50); Potassium 3.8 mmol/L (3.4-5.1); Sodium 138 mmol/L (137-145)
[2018-12-27 06:36] LABS: Hemoglobin A1C% w Est Avg Glu 7.6 % (4.0-6.0)
[2018-12-27 07:16] LABS: Cholesterol 171 mg/dL (140-199); HDL Cholesterol 53 mg/dL (40-60); LDL Cholesterol Calculated 105 mg/dL (<100); Triglycerides 64 mg/dL (35-150)
[2018-12-27 07:45] VITALS: BP 153/84; PULSE 100; RESP 16; TEMP 36.9; O2SAT 97
[2018-12-27] MEDS: SODIUM CHLORIDE 0.9% 1,000 ML 125 ML IV (07:56)
--- NOTE | 2018-12-27 08:59 | PM.CN ---
History of Present Illness Date Patient Seen: 12/27/18 Time Patient Seen: 08:59 Chief complaint: severe cramps, diverticulitus Reason for consult: umbilical hernia Narrative: 73yo F presents with one day of crampy pelvic pain. She says she gets this intermittently and presumes it is recurrent flares of diverticulitis for which she has previously had a colon resection. She says she usually can 'throw up and feel better' but was not nauseated and could not vomit this time. She was found to have a bowel-containg ventral hernia on CT with evidence of this as an obstruction but her stomach reportedly is not over-full. She notes that sometimes she feels this hernia and at times it is 'hard' and it was yesterday. Has softened now. Does not hurt. She still complains of no nausea this morning and says she feels much better. She had a BM and per pain is largely resolved. Her mild leukocytosis on arrival has normalized and vitals are normal. She is hungry. [facility] Medical History Hiatal hernia (Acute) Ventral hernia (Acute) Diverticulitis (Chronic) Surgical History Perforated diverticulum (Resolved) S/P colon resection (Resolved) Status post scar revision (Resolved) Family History Father Cardiac disease Hx of CABG Dementia Mother Cancer Daughter In good health Social History household members: none Smoking Status: Never smoker Family History Father Cardiac disease Hx of CABG Dementia Mother Cancer Daughter In good health Social History household members: none Smoking Status: Never smoker Meds Home Medications Medication Instructions Recorded Confirmed Type No Known Home Medications 12/26/18 12/26/18 History Allergies Allergy/AdvReac Type Severity Reaction Status Date / Time No Known Drug Allergies Allergy Verified 12/26/18 12:48 Review of Systems Constitutional Constitutional: Reports as per HPI Exam Vital Signs (past 8 hours): - 12/27/18 03:00 12/27/18 07:45 Temperature 98.3 F 98.4 F Pulse Rate 96 H 100 H Respiratory Rate 16 16 Blood Pressure 152/88 H 153/84 H Pulse Oximetry 92 97 Oxygen Delivery Method Room Air Oxygen Flow Rate 0 Narrative Exam Narrative: AAO, NAD, morbidly obese female EOMI, MMM, no scleral icterus unlabored RA soft, nt/nd, midline scar with supraumbilical hernia palpable but limited due to severe abd obesity- no skin changes, non-tender, reduced bedside with gentle pressure MAEW Objective Labs Result Diagrams: 12/27/18 05:00 12/27/18 05:00 Labs: Laboratory Results - last 24 hr 12/26/18 12/26/18 12/26/18 13:25 13:25 13:25 WBC 14.5 H RBC 5.40 H Hgb 14.8 Hct 45.2 MCV 83.8 MCH 27.4 MCHC 32.8 RDW 15.3 H Plt Count 293 Neut % (Auto) 87.8 H Lymph % (Auto) 7.0 L [place] % (Auto) 4.5 Eos % (Auto) 0.3 L Baso % (Auto) 0.4 Neut # (Auto) 93448 H Lymph # (Auto) 1000 L [place] # (Auto) 700 Eos # (Auto) 0 Baso # (Auto) 100 PT 10.9 INR 0.9 APTT 28 Sodium 138 Potassium 4.1 Chloride 101 Carbon Dioxide 25 BUN 16 Creatinine 0.60 Estimated GFR > 60.0 BUN/Creatinine Ratio 26.7 H Glucose 189 H Hemoglobin A1c Lactate Calcium 10.1 Total Bilirubin 0.9 AST 26 ALT 25 Alkaline Phosphatase 118 Total Protein 8.4 H Albumin 4.9 Globulin 3.5 Albumin/Globulin Ratio 1.4 Triglycerides Cholesterol LDL Cholesterol, Calc HDL Cholesterol Lipase 44 Urine Ictotest Urine RBC Urine WBC Ur Squamous Epith Cells Ur Transition Epith Cell Urine Bacteria Urine Mucus Ur Culture Indicated? Chlamy pneumoniae PCR Adenovirus (PCR) B.parapertussis DNA PCR Coronavirus OC43 (PCR) Coronavirus HKU1 (PCR) Coronavirus 229E (PCR) Coronavirus NL63 (PCR) Human Metapneumovir PCR Influenza Type A (PCR) Influenza Type B (PCR) M. pneumoniae (PCR) Parainfluenza 1 (PCR) Parainfluenza 2 (PCR) Parainfluenza 3 (PCR) Parainfluenza 4 (PCR) RSV (PCR) Entero/Rhino (PCR) 12/26/18 12/26/18 12/27/18 13:25 17:15 00:03 WBC RBC Hgb Hct MCV MCH MCHC RDW Plt Count Neut % (Auto) Lymph % (Auto) [place] % (Auto) Eos % (Auto) Baso % (Auto) Neut # (Auto) Lymph # (Auto) [place] # (Auto) Eos # (Auto) Baso # (Auto) PT INR APTT Sodium Potassium Chloride Carbon Dioxide BUN Creatinine Estimated GFR BUN/Creatinine Ratio Glucose Hemoglobin A1c Lactate 1.5 Calcium Total Bilirubin AST ALT Alkaline Phosphatase Total Protein Albumin Globulin Albumin/Globulin Ratio Triglycerides Cholesterol LDL Cholesterol, Calc HDL Cholesterol Lipase Urine Ictotest Negative Urine RBC 0-1/hpf Urine WBC 5-10/hpf H Ur Squamous Epith Cells 1-5 /hpf Ur Transition Epith Cell 0-1/hpf Urine Bacteria Few (2-10) H Urine Mucus 2+ H Ur Culture Indicated? Specimen cultured Chlamy pneumoniae PCR Not detected Adenovirus (PCR) Not detected B.parapertussis DNA PCR Not detected Coronavirus OC43 (PCR) Not detected Coronavirus HKU1 (PCR) Not detected Coronavirus 229E (PCR) Not detected Coronavirus NL63 (PCR) Not detected Human Metapneumovir PCR Not detected Influenza Type A (PCR) Not detected Influenza Type B (PCR) Not detected M. pneumoniae (PCR) Not detected Parainfluenza 1 (PCR) Not detected Parainfluenza 2 (PCR) Not detected Parainfluenza 3 (PCR) Not detected Parainfluenza 4 (PCR) Not detected RSV (PCR) Not detected Entero/Rhino (PCR) Not detected 12/27/18 12/27/18 12/27/18 05:00 05:00 05:00 WBC 8.3 RBC 4.75 Hgb 12.9 Hct 39.8 MCV 83.8 MCH 27.1 MCHC 32.4 RDW 15.3 H Plt Count 258 Neut % (Auto) 72.9 Lymph % (Auto) 16.0 L [place] % (Auto) 9.7 Eos % (Auto) 1.1 L Baso % (Auto) 0.3 Neut # (Auto) 6100 Lymph # (Auto) 1300 [place] # (Auto) 800 Eos # (Auto) 100 Baso # (Auto) 0 PT INR APTT Sodium 138 Potassium 3.8 Chloride 106 Carbon Dioxide 24 BUN 17 Creatinine 0.60 Estimated GFR > 60.0 BUN/Creatinine Ratio 28.3 H Glucose 156 H Hemoglobin A1c 7.6 H Lactate Calcium 8.6 Total Bilirubin AST ALT Alkaline Phosphatase Total Protein Albumin Globulin Albumin/Globulin Ratio Triglycerides Cholesterol LDL Cholesterol, Calc HDL Cholesterol Lipase Urine Ictotest Urine RBC Urine WBC Ur Squamous Epith Cells Ur Transition Epith Cell Urine Bacteria Urine Mucus Ur Culture Indicated? Chlamy pneumoniae PCR Adenovirus (PCR) B.parapertussis DNA PCR Coronavirus OC43 (PCR) Coronavirus HKU1 (PCR) Coronavirus 229E (PCR) Coronavirus NL63 (PCR) Human Metapneumovir PCR Influenza Type A (PCR) Influenza Type B (PCR) M. pneumoniae (PCR) Parainfluenza 1 (PCR) Parainfluenza 2 (PCR) Parainfluenza 3 (PCR) Parainfluenza 4 (PCR) RSV (PCR) Entero/Rhino (PCR) 12/27/18 05:00 WBC RBC Hgb Hct MCV MCH MCHC RDW Plt Count Neut % (Auto) Lymph % (Auto) [place] % (Auto) Eos % (Auto) Baso % (Auto) Neut # (Auto) Lymph # (Auto) [place] # (Auto) Eos # (Auto) Baso # (Auto) PT INR APTT Sodium Potassium Chloride Carbon Dioxide BUN Creatinine Estimated GFR BUN/Creatinine Ratio Glucose Hemoglobin A1c Lactate Calcium Total Bilirubin AST ALT Alkaline Phosphatase Total Protein Albumin Globulin Albumin/Globulin Ratio Triglycerides 64 Cholesterol 171 LDL Cholesterol, Calc 105 H HDL Cholesterol 53 Lipase Urine Ictotest Urine RBC Urine WBC Ur Squamous Epith Cells Ur Transition Epith Cell Urine Bacteria Urine Mucus Ur Culture Indicated? Chlamy pneumoniae PCR Adenovirus (PCR) B.parapertussis DNA PCR Coronavirus OC43 (PCR) Coronavirus HKU1 (PCR) Coronavirus 229E (PCR) Coronavirus NL63 (PCR) Human Metapneumovir PCR Influenza Type A (PCR) Influenza Type B (PCR) M. pneumoniae (PCR) Parainfluenza 1 (PCR) Parainfluenza 2 (PCR) Parainfluenza 3 (PCR) Parainfluenza 4 (PCR) RSV (PCR) Entero/Rhino (PCR) Assessment & Plan Assessment & Plan narrative: - hernia reduced, pt with no more signs of obstruction and no toxicity - CLD, ADAT --> possibly home later today - bowels moving - ambulate - abd binder - discussed with pt that we will see her in the office to discuss elective repair but it is extremely important that she loses weight, this plus her scar tissue from previous abd infections and surgeries will complicate the surgery and increase her propensity for recurrence --> also, HbA1c noted to be elevated but pt states she does not know she has DM, needs to see PCP and get control of this
--- NOTE | 2018-12-27 09:03 | P.CONS_ITS ---
History of Present Illness Date Patient Seen: 12/27/18 Time Patient Seen: 08:59 Chief complaint: severe cramps, diverticulitus Reason for consult: umbilical hernia Narrative: 73yo F presents with one day of crampy pelvic pain. She says she gets this intermittently and presumes it is recurrent flares of diverticulitis for which she has previously had a colon resection. She says she usually can 'throw up and feel better' but was not nauseated and could not vomit this time. She was found to have a bowel-containg ventral hernia on CT with evidence of this as an obstruction but her stomach reportedly is not over-full. She notes that sometimes she feels this hernia and at times it is 'hard' and it was yesterday. Has softened now. Does not hurt. She still complains of no nausea this morning and says she feels much better. She had a BM and per pain is lar kiera resolved. Her mild leukocytosis on arrival has normalized and vitals are normal. She is hungry. [facility] Medical History Hiatal hernia (Acute) Ventral hernia (Acute) Diverticulitis (Chronic) Surgical History Perforated diverticulum (Resolved) S/P colon resection (Resolved) Status post scar revision (Resolved) Family History Father Cardiac disease Hx of CABG Dementia Mother Cancer Daughter In good health Social History household members: none Smoking Status: Never smoker Family History Father Cardiac disease Hx of CABG Dementia Mother Cancer Daughter In good health Social History household members: none Smoking Status: Never smoker Meds Home Medications Medication Instructions Recorded Confirmed Type No Known Home Medications 12/26/18 12/26/18 History Allergies Allergy/AdvReac Type Severity Reaction Status Date / Time No Known Drug Allergies Allergy Verified 12/26/18 12:48 Review of Systems Constitutional Constitutional: Reports as per HPI Exam Vital Signs (past 8 hours): - 12/27/18 03:00 12/27/18 07:45 Temperature 98.3 F 98.4 F Pulse Rate 96 H 100 H Respiratory Rate 16 16 Blood Pressure 152/88 H 153/84 H Pulse Oximetry 92 97 Oxygen Delivery Method Room Air Oxygen Flow Rate 0 Narrative Exam Narrative: AAO, NAD, morbidly obese female EOMI, MMM, no scleral icterus unlabored RA soft, nt/nd, midline scar with supraumbilical hernia palpable but limited due to severe abd obesity- no skin changes, non-tender, reduced bedside with gentle pressure MAEW Objective Labs Result Diagrams: 12/27/18 05:00 12/27/18 05:00 Labs: Laboratory Results - last 24 hr 12/26/18 12/26/18 12/26/18 13:25 13:25 13:25 WBC 14.5 H RBC 5.40 H Hgb 14.8 Hct 45.2 MCV 83.8 MCH 27.4 MCHC 32.8 RDW 15.3 H Plt Count 293 Neut % (Auto) 87.8 H Lymph % (Auto) 7.0 L [place] % (Auto) 4.5 Eos % (Auto) 0.3 L Baso % (Auto) 0.4 Neut # (Auto) 28121 H Lymph # (Auto) 1000 L [place] # (Auto) 700 Eos # (Auto) 0 Baso # (Auto) 100 PT 10.9 INR 0.9 APTT 28 Sodium 138 Potassium 4.1 Chloride 101 Carbon Dioxide 25 BUN 16 Creatinine 0.60 Estimated GFR > 60.0 BUN/Creatinine Ratio 26.7 H Glucose 189 H Hemoglobin A1c Lactate Calcium 10.1 Total Bilirubin 0.9 AST 26 ALT 25 Alkaline Phosphatase 118 Total Protein 8.4 H Albumin 4.9 Globulin 3.5 Albumin/Globulin Ratio 1.4 Triglycerides Cholesterol LDL Cholesterol, Calc HDL Cholesterol Lipase 44 Urine Ictotest Urine RBC Urine WBC Ur Squamous Epith Cells Ur Transition Epith Cell Urine Bacteria Urine Mucus Ur Culture Indicated? Chlamy pneumoniae PCR Adenovirus (PCR) B.parapertussis DNA PCR Coronavirus OC43 (PCR) Coronavirus HKU1 (PCR) Coronavirus 229E (PCR) Coronavirus NL63 (PCR) Human Metapneumovir PCR Influenza Type A (PCR) Influenza Type B (PCR) M. pneumoniae (PCR) Parainfluenza 1 (PCR) Parainfluenza 2 (PCR) Parainfluenza 3 (PCR) Parainfluenza 4 (PCR) RSV (PCR) Entero/Rhino (PCR) 12/26/18 12/26/18 12/27/18 13:25 17:15 00:03 WBC RBC Hgb Hct MCV MCH MCHC RDW Plt Count Neut % (Auto) Lymph % (Auto) [place] % (Auto) Eos % (Auto) Baso % (Auto) Neut # (Auto) Lymph # (Auto) [place] # (Auto) Eos # (Auto) Baso # (Auto) PT INR APTT Sodium Potassium Chloride Carbon Dioxide BUN Creatinine Estimated GFR BUN/Creatinine Ratio Glucose Hemoglobin A1c Lactate 1.5 Calcium Total Bilirubin AST ALT Alkaline Phosphatase Total Protein Albumin Globulin Albumin/Globulin Ratio Triglycerides Cholesterol LDL Cholesterol, Calc HDL Cholesterol Lipase Urine Ictotest Negative Urine RBC 0-1/hpf Urine WBC 5-10/hpf H Ur Squamous Epith Cells 1-5 /hpf Ur Transition Epith Cell 0-1/hpf Urine Bacteria Few (2-10) H Urine Mucus 2+ H Ur Culture Indicated? Specimen cultured Chlamy pneumoniae PCR Not detected Adenovirus (PCR) Not detected B.parapertussis DNA PCR Not detected Coronavirus OC43 (PCR) Not detected Coronavirus HKU1 (PCR) Not detected Coronavirus 229E (PCR) Not detected Coronavirus NL63 (PCR) Not detected Human Metapneumovir PCR Not detected Influenza Type A (PCR) Not detected Influenza Type B (PCR) Not detected M. pneumoniae (PCR) Not detected Parainfluenza 1 (PCR) Not detected Parainfluenza 2 (PCR) Not detected Parainfluenza 3 (PCR) Not detected Parainfluenza 4 (PCR) Not detected RSV (PCR) Not detected Entero/Rhino (PCR) Not detected 12/27/18 12/27/18 12/27/18 05:00 05:00 05:00 WBC 8.3 RBC 4.75 Hgb 12.9 Hct 39.8 MCV 83.8 MCH 27.1 MCHC 32.4 RDW 15.3 H Plt Count 258 Neut % (Auto) 72.9 Lymph % (Auto) 16.0 L [place] % (Auto) 9.7 Eos % (Auto) 1.1 L Baso % (Auto) 0.3 Neut # (Auto) 6100 Lymph # (Auto) 1300 [place] # (Auto) 800 Eos # (Auto) 100 Baso # (Auto) 0 PT INR APTT Sodium 138 Potassium 3.8 Chloride 106 Carbon Dioxide 24 BUN 17 Creatinine 0.60 Estimated GFR > 60.0 BUN/Creatinine Ratio 28.3 H Glucose 156 H Hemoglobin A1c 7.6 H Lactate Calcium 8.6 Total Bilirubin AST ALT Alkaline Phosphatase Total Protein Albumin Globulin Albumin/Globulin Ratio Triglycerides Cholesterol LDL Cholesterol, Calc HDL Cholesterol Lipase Urine Ictotest Urine RBC Urine WBC Ur Squamous Epith Cells Ur Transition Epith Cell Urine Bacteria Urine Mucus Ur Culture Indicated? Chlamy pneumoniae PCR Adenovirus (PCR) B.parapertussis DNA PCR Coronavirus OC43 (PCR) Coronavirus HKU1 (PCR) Coronavirus 229E (PCR) Coronavirus NL63 (PCR) Human Metapneumovir PCR Influenza Type A (PCR) Influenza Type B (PCR) M. pneumoniae (PCR) Parainfluenza 1 (PCR) Parainfluenza 2 (PCR) Parainfluenza 3 (PCR) Parainfluenza 4 (PCR) RSV (PCR) Entero/Rhino (PCR) 12/27/18 05:00 WBC RBC Hgb Hct MCV MCH MCHC RDW Plt Count Neut % (Auto) Lymph % (Auto) [place] % (Auto) Eos % (Auto) Baso % (Auto) Neut # (Auto) Lymph # (Auto) [place] # (Auto) Eos # (Auto) Baso # (Auto) PT INR APTT Sodium Potassium Chloride Carbon Dioxide BUN Creatinine Estimated GFR BUN/Creatinine Ratio Glucose Hemoglobin A1c Lactate Calcium Total Bilirubin AST ALT Alkaline Phosphatase Total Protein Albumin Globulin Albumin/Globulin Ratio Triglycerides 64 Cholesterol 171 LDL Cholesterol, Calc 105 H HDL Cholesterol 53 Lipase Urine Ictotest Urine RBC Urine WBC Ur Squamous Epith Cells Ur Transition Epith Cell Urine Bacteria Urine Mucus Ur Culture Indicated? Chlamy pneumoniae PCR Adenovirus (PCR) B.parapertussis DNA PCR Coronavirus OC43 (PCR) Coronavirus HKU1 (PCR) Coronavirus 229E (PCR) Coronavirus NL63 (PCR) Human Metapneumovir PCR Influenza Type A (PCR) Influenza Type B (PCR) M. pneumoniae (PCR) Parainfluenza 1 (PCR) Parainfluenza 2 (PCR) Parainfluenza 3 (PCR) Parainfluenza 4 (PCR) RSV (PCR) Entero/Rhino (PCR) Assessment & Plan Assessment & Plan narrative: - hernia reduced, pt with no more signs of obstruct ion and no toxicity - CLD, ADAT --> possibly home later today - bowels moving - ambulate - abd binder - discussed with pt that we will see her in the office to discuss elective repair but it is extremely important that she loses weight, this plus her scar tissue from previous abd infections and surgeries will complicate the surgery and increase her propensity for recurrence --> also, HbA1c noted to be elevated but pt states she does not know she has DM, needs to see PCP and get control of this
[2018-12-27 10:13] VITALS: O2SAT 96
--- NOTE | 2018-12-27 10:23 | CM.DANOTE ---
DCP: Case received, EMR reviewed and met with patient. Introduced self and role. DCP template completed with information currently available. Patient is a 73 year old female who admitted yesterday evening to the care of the hospitalist team. PCP: VENECIA Chance at [facility]. Payer: confirmed: [facility] Advantage. Patient came to hospital via vehicle secondary to severe abdominal cramps. Patient has history of Diverticulitis, as well as history of post bowel resection. She has diagnosis of small bowel obstruction with bowel containing hernia. Met patient briefly in room. Alert and oriented. She lives along on [address] in [place]. Asked her if she had any family, or in the area, should she need any help when she goes home. She confirmed that she has a neighbor that can help out. She is independent, drives. Her provider is out of [facility], and will be moving to the [facility] office, which is closer to her. P: DCP to continue to follow closely, and evaluate for any resources that she may need, as plan unfolds. Margo Mon RN/[employer]
[2018-12-27 11:27] VITALS: BP 122/69; PULSE 89; RESP 14; O2SAT 98
--- NOTE | 2018-12-27 11:35 | PT.IIE ---
Surgical History (Last Reviewed 12/27/18 @ 08:59 by Jordana Corbin MD) Perforated diverticulum (Resolved) S/P colon resection (Resolved) Status post scar revision (Resolved) Medical History (Last Reviewed 12/27/18 @ 08:59 by Jordana Corbin MD) Hiatal hernia (Acute) Ventral hernia (Acute) Diverticulitis (Chronic) Physical Therapy Inpatient Evaluation/Re-Eval M1 PT/OT-IP Prior Functional Status Start: 12/27/18 11:17 Freq: NEEDED Status: Active Protocol: Document 12/27/18 10:20 (Rec: 12/27/18 11:35 [email or web address]) Medical Review Prior Functional Status Medical History Reviewed Yes Diet/Fluid Consistency NPO Communication No deficits noted. Able to make needs known. Mobility and Gait Pt is an independent ambulator at home and community without AD. Pt often goes to christian, [place] reading, crafting with friends. Activities of Daily Living and IADL's Pt is independent with ADLs and IADLs without AD. Social History Household Members none Living Arrangements House Number of Floors (Floors) One Floor Number of Stairs To Enter/Railing? 2 TELLY Home Environment Standard Height Toilet Walk in Shower Employment Status Retired Additional Social History Comment Pt lives alone in [facility]. She is very independent with ADLs and IADLs and she also drives. Pt states she could have assistance from neighbour if needed. Pt presents to ER last night with one day of crampy pelvic pain. She says she gets this intermittently and presumes it is recurrent flares of diverticulitis for which she has previously had a colon resection. She was found to have a bowel-containg ventral hernia on CT with evidence of this as an obstruction but her stomach reportedly is not over-full M2 PT-IP Current Condition Start: 12/27/18 11:17 Freq: NEEDED Status: Active Protocol: Document 12/27/18 10:20 HH (Rec: 12/27/18 11:35 [email or web address]) Physical Therapy Current Condition Current Condition Evaluation Date 12/27/18 Treatment Diagnosis Bowerl obstruction, impaired activity tolerance Onset Date 12/26/18 Weight Bearing Status Weight Bearing Status Weight Bear as Tolerated M3 PT-IP Subjective Start: 12/27/18 11:17 Freq: NEEDED Status: Active Protocol: Document 12/27/18 10:20 HH (Rec: 12/27/18 11:35 [id number]) Subjective Physical Therapy Visit Type Type Initial Evaluation Visit Start Time 10:20 Visit Stop Time 10:40 Total Visit Minutes 20 Notes Per RN and pt, She says she feels much better. She had a BM and went to bathroom without AD and per pain is largely resolved Number of EMPLOYMENT LAW ATTORNEY Visits 0 Physical Therapy Visit Comments Patient Comments I feel so much better and i dont feel weak now. Patient Goals To return home Therapy Pain Assessment Pain Present Pain Present Denied Pain M4 PT-IP Mobility and Gait Start: 12/27/18 11:17 Freq: NEEDED Status: Active Protocol: Document 12/27/18 10:20 HH (Rec: 12/27/18 11:35 [id number]) PT-Bed Mobility Assessment Rolling Type of Rolling Roll to Left Level of Assist Independent Supine to Sit Supine to Sit Independent Head of Bed Elevated Scooting Scooting to Edge of Bed Independent Scooting Up and Down in Bed Independent PT-Transfer Assessment Sit to and From Stand Sit to and from Stand Independent Equipment Orthotic/Prosthetic Devices or Brace: No Transfers Transfer Destination Bed Chair Transfer Technique Stand Step Pivot Transfer Ability Level of Assist Independent Comments Mobility Comments Pt was in bed upon assessment. Pt got up without using UEs and able to transfer to bedside chair after amb independently. Pt appears very steady and no acute distress . Gait Assessment Gait Gait Assistance Required: Independent Distance (Feet) 400 Able to Maintain Weight Bearing Status Yes During Gait Assistive Devices Assistive Device None Orthotic/Prosthetic Devices or Brace: No Gait Deviations General Gait Pattern Within Normal Limits Factors Limiting Gait Function Factors Limiting Gait Function Decreased Activity Tolerance Pain Comments Gait Comments Pt amb from bedside to hallway for 2 round trips. Pt amb without AD and gait belt for first 100 ft but then held on to IV pole in order to manage her PICC line. Pt states I walk normally now with the proper speed and i dont feel weak at this point. Pt appears very steady and able to negotiate obstacles and staff around [facility] safely. Stair Climbing Assessment Comments Stair Climbing Comments Pt did marching in place without UE support Pt is estimated to be safe to negotiate 2 steps without AD/ railings. PT-Balance Assessment Sitting Balance and Reactions Static Sitting Balance Ability Normal Dynamic Sitting Balance Ability Normal Standing Balance and Reactions Static Standing Balance Ability Normal Dynamic Standing Balance Ability Normal M5 PT-IP Objective Assessments Start: 12/27/18 11:17 Freq: NEEDED Status: Active Protocol: Document 12/27/18 10:20 HH (Rec: 12/27/18 11:35 [id number]) Orientation Orientation/Cognition Level of Alertness Alert Orientation Name Age Birthday Month Date Year Day of Week Place Situation Language Function Ability No Deficits Noted Safety Awareness Understands Safety Issues Memory Description No Deficits Noted Gross Range of Motion Upper Extremity ROM Assessment Within Functional Limits Lower Extremity ROM Assessment Within Functional Limits Strength Upper Extremity Strength Assessment Within Functional Limits Lower Extremity Strength Assessment Within Functional Limits Coordination Assessment Gross Coordination Gross Coordination WNL Assessment Finger to Nose Test Normal Performance Pronation/Supination Test Normal Performance Sensation Assessment Sensation Gross Sensation WNL Light Touch Intact Proprioception (Position) Intact Muscle Tone Muscle Tone WNL Yes M6 PT-IP Treatment Start: 12/27/18 11:17 Freq: NEEDED Status: Active Protocol: Document 12/27/18 10:20 HH (Rec: 12/27/18 11:35 [email or web address]) Physical Therapy Treatment Exercises Exercises Ankle Pumps Gluteal Sets Quad Sets Heel Slides Straight Leg Raises Education Education Provided Safety Other Treatments Other Treatment Performed standing marching 10 x2 M7 PT-IP Assessment and Plan Start: 12/27/18 11:17 Freq: NEEDED Status: Active Protocol: Document 12/27/18 10:20 HH (Rec: 12/27/18 11:35 [id number]) PT Summary Assessment and Plan Potential Rehabilitation Potential Excellent Status of Condition at Evaluation Stable Summary Impairments Pain Strength Gait Activity Tolerance Assessment Summary Pt is eval only and will be d/ c from PT due to her current independent mobility status. Pt is able to amb, transfer independently without AD and appears steady and safe. Pt states I dont feel weak and I am at my baseline. Pt does not need skilled therapy at this point and encouraged pt to cont mobility with nursing staff supervision to facilitate BW movement. Pt will be safe to d/c home once she is medically stable. Frequency of Treatment Frequency Of Treatment Discharge Recommendations To Nursing Amount of Assist Needed Independent Discharge Recommendations PT Discharge Recommendations Home
[2018-12-27 11:54] VITALS: TEMP 36.9
--- NOTE | 2018-12-27 12:33 | P.DS_ITS ---
History of Present Illness Date Patient Seen: 12/26/18 Chief complaint: severe cramps, diverticulitus Narrative: Written by Elie HAMILTON: Geetha Sheriff is a 73-year-old female with a history of diverticulitis and history of perforation status post bowel resection and small bowel obstruction for adhesions presents today to the ER with abdominal pain. the patient had an onset of abdominal pain at 3:00 p.m. yesterday following eating lunch. She states she avoids foods that trigger her diverticulosis and had eaten a Balaji sandwich which had previously not been problematic. The patient states the pain she experienced was left central abdomen without radiation and characteristic of her prior bouts of diverticulitis. She reports no nausea vomiting no diarrhea or constipation. The patient states she typically ?rene through it? with her symptoms resolve within 12 hours but this time her pain has been getting progressively worse since onset. Patient also endorses a cough that has been dry nonproductive and rhinorrhea which is triggered coughing which is led to gagging and vomiting. The patient has experienced a couple episodes while in the ER stating is related to coughing and not abdominal pain. the patient has a previous history of ruptured diverticulum 25 years ago for which she had bowel resection followed by an abdominal surgery for small bowel obstruction related to adhesions. Patient presently has a history of post periumbilical hernia with entrapped loop of small bowel on CT scan and is not reducible. Patient has had minimal pain only experiencing pain on palpation of the abdomen. She reports no other complaints of recent cold or flu symptoms but does endorse rhinorrhea but no headache or sore throat. She denies chest pain or shortness of breath and has cough is described above. She denies complaints of nausea and only vomits with coughing at this time. She states her abdomen is somewhat more distended than usual and has palpable protruding left periumbilical hernia. She reports no radiation of the pain and states she has been passing flatus. She denies urinary symptoms of burning urgency or frequency. She does endorse a disequilibrium and feeling that she might fall and uses no assistive devices but must use handrails when ascending stairs. Discharge Providers Date of admission: 12/26/18 21:43 Discharge Date: 12/27/18 Consults: 12/26/18 22:36 Consult to Discharge Planning Routine Comment: 12/26/18 22:37 Consult to Physician Routine Comment: Consulting Provider: Jordana Corbin Reason for consultation: Small bowel obstruction within periumbilical hernia Has provider been notified: Yes 12/26/18 22:41 Consult to Physical Therapy Evaluate & Treat Comment: SBO, history of dysequalibrium Physician Instructions: Evaluate and Treat 12/26/18 22:45 Consult to Dietitian, Adult Routine Comment: Reason For Exam: Morbid obesity, BMI 38.4 12/26/18 22:49 Consult to Respiratory Therapy Evaluate & Treat Comment: Cough x1 month, slight expiratory wheeze b/l bases Physician Instructions: Evaluate and treat 12/27/18 12:22 Consult to Dietitian, Adult Routine Comment: Reason For Exam: Newly diagnosed diabetes Discharge provider: Tara Mike DO Summary Discharge Diagnosis: 1. Acute partial small bowel obstruction, secondary to chronic periumbilical hernia, present on admission. Resolved. 2. Postnasal drip with chronic cough, present on admission. Stable. 3. Newly diagnosed diabetes mellitus type 2, non-insulin using, present on admission. Active. 4. Hypertension, likely chronic, present on admission. Stable. 5. Disequilibrium, chronic, present on admission. Stable. 6. Class II obesity, chronic, present on admission. Stable. Hospital Course: Geetha Sheriff is a 73-year-old female with a history of diverticulitis and history of perforation status post bowel resection and small bowel obstruction for adhesions presents today to the ER with abdominal pain. 1. Acute partial small bowel obstruction, secondary to chronic periumbilical hernia, present on admission. Resolved. -Patient presented with abrupt onset and progressive worsening of abdominal pain. Patient with known history of abdominal hernia for several years. No history of prior bowel entrapment or complications. -History of diverticulosis noted on CT without diverticulitis, air-fluid levels present, transition appears to be at the site of the small bowel containing periumbilical hernia. -Continued IV fluids until adequately hydrated. Advance diet slowly and was well tolerated. -Hernia has been reduced and abdominal binder in place. -Consulted general surgery, Dr. Corbin, who recommended conservative treatment (IV fluids, abdominal binder and advancement diet) and weight loss. Patient may have elective umbilical hernia repair in the future. 2. Postnasal drip with chronic cough, present on admission. Stable. -Patient with productive cough of clear sputum x 1 month with associated rhinorrhea and post nasal drip. No dyspnea. Occasional gag reflex with emesis. -Respiratory viral PCR negative. -RT consulted and provided nebulizer without any benefit. 3. Newly diagnosed diabetes mellitus type 2, non-insulin using, present on admission. Active. -Hemoglobin A1c 7.6%. -Spent a significant amount of time > 30 minutes providing education regarding diabetes, lifestyle modification including diet and exercise, the main stays of treatment and the various complications that may arise. -Plan to have patient follow-up with PCP and start metformin after she recovers completely from acute illness in the next week. Recommend diabetic education. 4. Hypertension, likely chronic, present on admission. Stable. -Patient reports she does not go to the doctor often and has had variable previous blood pressure readings sometimes high and other times normal. -Started losartan 25 mg daily in may need to be titrated up and will defer to PCP. Provided handout on DASH diet. 5. Disequilibrium, chronic, present on admission. Stable. -Patient with history balance disorder but uses no assist devices. She does use handrails for stability. Patient reports no falls and does not impair activities of daily living. -Ordered physical therapy evaluation and treatment. Physical therapy recommends home independently without assist device or any needs. 6. Class II obesity, chronic, present on admission. Stable. -BMI 39.2. -Counseled the patient extensively on lifestyle modification including: diet and exercise as above. Status at Discharge Functional status at discharge: independent ambulation Overall status at discharge: patient is back to baseline Exam Vital Signs (past 8 hours): - 12/27/18 07:45 12/27/18 10:13 12/27/18 11:27 Temperature 98.4 F Pulse Rate 100 H 89 Respiratory Rate 16 14 Blood Pressure 153/84 H 122/69 Pulse Oximetry 97 96 98 12/27/18 11:54 Temperature 98.4 F Pulse Rate Respiratory Rate Blood Pressure Pulse Oximetry Oxygen Delivery Method Room Air Oxygen Flow Rate 0 Narrative Exam Narrative: General: Older female sitting in bedside chair and in no acute distress, appears younger than stated age, well-developed, well-nourished, appropriately interactive. HEENT: Normocephalic, atraumatic. External ears without defect. Pupils equal, round, and reactive to light. Anicteric sclerae, moist conjunctivae, and no lid lag. Oropharynx free of erythema and cobble stoning with moist mucosa. Neck: Supple with full range of motion. No lymphadenopathy or thyromegaly. Cardiovascular: Regular rate and rhythm without murmurs, rubs, or gallops appreciated. Pulmonary: Clear to auscultation bilaterally without crackles, wheezes, or rhonchi. Normal respiratory effort with no use of accessory muscles. Abdomen: Abdominal binder in place, obese, nontender, nondistended, bowel sounds present but distant. No hepatosplenomegaly or masses appreciated. Extremities: No clubbing, cyanosis, or edema. Skin: Normal temperature, turgor, and texture; no rash, ulcers, or subcutaneous nodules appreciated. Neurological: Cranial nerves grossly intact. Normal muscle strength, tone, and bulk. Reflexes, coordination, and sensory function within normal limits. No known gait impairment. Psychiatric: Mild depressed mood and affect. Alert and oriented to person, place, and time. Objective Labs Result Diagrams: 12/27/18 05:00 12/27/18 05:00 Labs: Laboratory Results - last 24 hr 12/26/18 12/26/18 12/26/18 13:25 13:25 13:25 WBC 14.5 H RBC 5.40 H Hgb 14.8 Hct 45.2 MCV 83.8 MCH 27.4 MCHC 32.8 RDW 15.3 H Plt Count 293 Neut % (Auto) 87.8 H Lymph % (Auto) 7.0 L [place] % (Auto) 4.5 Eos % (Auto) 0.3 L Baso % (Auto) 0.4 Neut # (Auto) 57464 H Lymph # (Auto) 1000 L [place] # (Auto) 700 Eos # (Auto) 0 Baso # (Auto) 100 PT 10.9 INR 0.9 APTT 28 Sodium 138 Potassium 4.1 Chloride 101 Carbon Dioxide 25 BUN 16 Creatinine 0.60 Estimated GFR > 60.0 BUN/Creatinine Ratio 26.7 H Glucose 189 H Hemoglobin A1c Lactate Calcium 10.1 Total Bilirubin 0.9 AST 26 ALT 25 Alkaline Phosphatase 118 Total Protein 8.4 H Albumin 4.9 Globulin 3.5 Albumin/Globulin Ratio 1.4 Triglycerides Cholesterol LDL Cholesterol, Calc HDL Cholesterol Lipase 44 Urine Ictotest Urine RBC Urine WBC Ur Squamous Epith Cells Ur Transition Epith Cell Urine Bacteria Urine Mucus Ur Culture Indicated? Chlamy pneumoniae PCR Adenovirus (PCR) B.parapertussis DNA PCR Coronavirus OC43 (PCR) Coronavirus HKU1 (PCR) Coronavirus 229E (PCR) Coronavirus NL63 (PCR) Human Metapneumovir PCR Influenza Type A (PCR) Influenza Type B (PCR) M. pneumoniae (PCR) Parainfluenza 1 (PCR) Parainfluenza 2 (PCR) Parainfluenza 3 (PCR) Parainfluenza 4 (PCR) RSV (PCR) Entero/Rhino (PCR) 12/26/18 12/26/18 12/27/18 13:25 17:15 00:03 WBC RBC Hgb Hct MCV MCH MCHC RDW Plt Count Neut % (Auto) Lymph % (Auto) [place] % (Auto) Eos % (Auto) Baso % (Auto) Neut # (Auto) Lymph # (Auto) [place] # (Auto) Eos # (Auto) Baso # (Auto) PT INR APTT Sodium Potassium Chloride Carbon Dioxide BUN Creatinine Estimated GFR BUN/Creatinine Ratio Glucose Hemoglobin A1c Lactate 1.5 Calcium Total Bilirubin AST ALT Alkaline Phosphatase Total Protein Albumin Globulin Albumin/Globulin Ratio Triglycerides Cholesterol LDL Cholesterol, Calc HDL Cholesterol Lipase Urine Ictotest Negative Urine RBC 0-1/hpf Urine WBC 5-10/hpf H Ur Squamous Epith Cells 1-5 /hpf Ur Transition Epith Cell 0-1/hpf Urine Bacteria Few (2-10) H Urine Mucus 2+ H Ur Culture Indicated? Specimen cultured Chlamy pneumoniae PCR Not detected Adenovirus (PCR) Not detected B.parapertussis DNA PCR Not detected Coronavirus OC43 (PCR) Not detected Coronavirus HKU1 (PCR) Not detected Coronavirus 229E (PCR) Not detected Coronavirus NL63 (PCR) Not detected Human Metapneumovir PCR Not detected Influenza Type A (PCR) Not detected Influenza Type B (PCR) Not detected M. pneumoniae (PCR) Not detected Parainfluenza 1 (PCR) Not detected Parainfluenza 2 (PCR) Not detected Parainfluenza 3 (PCR) Not detected Parainfluenza 4 (PCR) Not detected RSV (PCR) Not detected Entero/Rhino (PCR) Not detected 12/27/18 12/27/18 12/27/18 05:00 05:00 05:00 WBC 8.3 RBC 4.75 Hgb 12.9 Hct 39.8 MCV 83.8 MCH 27.1 MCHC 32.4 RDW 15.3 H Plt Count 258 Neut % (Auto) 72.9 Lymph % (Auto) 16.0 L [place] % (Auto) 9.7 Eos % (Auto) 1.1 L Baso % (Auto) 0.3 Neut # (Auto) 6100 Lymph # (Auto) 1300 [place] # (Auto) 800 Eos # (Auto) 100 Baso # (Auto) 0 PT INR APTT Sodium 138 Potassium 3.8 Chloride 106 Carbon Dioxide 24 BUN 17 Creatinine 0.60 Estimated GFR > 60.0 BUN/Creatinine Ratio 28.3 H Glucose 156 H Hemoglobin A1c 7.6 H Lactate Calcium 8.6 Total Bilirubin AST ALT Alkaline Phosphatase Total Protein Albumin Globulin Albumin/Globulin Ratio Triglycerides Cholesterol LDL Cholesterol, Calc HDL Cholesterol Lipase Urine Ictotest Urine RBC Urine WBC Ur Squamous Epith Cells Ur Transition Epith Cell Urine Bacteria Urine Mucus Ur Culture Indicated? Chlamy pneumoniae PCR Adenovirus (PCR) B.parapertussis DNA PCR Coronavirus OC43 (PCR) Coronavirus HKU1 (PCR) Coronavirus 229E (PCR) Coronavirus NL63 (PCR) Human Metapneumovir PCR Influenza Type A (PCR) Influenza Type B (PCR) M. pneumoniae (PCR) Parainfluenza 1 (PCR) Parainfluenza 2 (PCR) Parainfluenza 3 (PCR) Parainfluenza 4 (PCR) RSV (PCR) Entero/Rhino (PCR) 12/27/18 05:00 WBC RBC Hgb Hct MCV MCH MCHC RDW Plt Count Neut % (Auto) Lymph % (Auto) [place] % (Auto) Eos % (Auto) Baso % (Auto) Neut # (Auto) Lymph # (Auto) [place] # (Auto) Eos # (Auto) Baso # (Auto) PT INR APTT Sodium Potassium Chloride Carbon Dioxide BUN Creatinine Estimated GFR BUN/Creatinine Ratio Glucose Hemoglobin A1c Lactate Calcium Total Bilirubin AST ALT Alkaline Phosphatase Total Protein Albumin Globulin Albumin/Globulin Ratio Triglycerides 64 Cholesterol 171 LDL Cholesterol, Calc 105 H HDL Cholesterol 53 Lipase Urine Ictotest Urine RBC Urine WBC Ur Squamous Epith Cells Ur Transition Epith Cell Urine Bacteria Urine Mucus Ur Culture Indicated? Chlamy pneumoniae PCR Adenovirus (PCR) B.parapertussis DNA PCR Coronavirus OC43 (PCR) Coronavirus HKU1 (PCR) Coronavirus 229E (PCR) Coronavirus NL63 (PCR) Human Metapneumovir PCR Influenza Type A (PCR) Influenza Type B (PCR) M. pneumoniae (PCR) Parainfluenza 1 (PCR) Parainfluenza 2 (PCR) Parainfluenza 3 (PCR) Parainfluenza 4 (PCR) RSV (PCR) Entero/Rhino (PCR) Discharge Plan Discharge Plan Patient Disposition: Home Discharge comment: You are being discharged home. Please follow-up with your PCP, Luciana HAMILTON, at your scheduled appointment to discuss your hospitalization and for management of diabetes and hypertension. As discussed, will encourage lifestyle modification including diet and exercise. Please try to eat a low-carbohydrate low-fat diet. The [place] [employer] recommends 150 minutes of moderate intensity exercise per week. Start with small obtainable goals and work your way up. Also light weightlifting is important for bone strength. You were prescribed losartan 25 mg daily for hypertension. Your prescribed metformin 500 mg twice daily to start 1 week from now. Metformin may cause mild nausea and is best taken with food. It is common to have diarrhea after starting metformin but this should resolve in 1-2 weeks after being on the medication. Discharge Med Rec/Prescriptions Prescriptions: New losartan 25 mg Tablet 25 mg PO DAILY Qty: 30 RF: 0 metformin 500 mg tablet 500 mg PO BID Qty: 60 RF: 0 Follow up/Referrals: Luciana Chance ARNP [Non-Staff] - 1 Week (*appt:01/03 @ 11:00 with ronnie hamilton [phone] ) Provider Discharge Instructions Diet: Carb-consistent/Diabetic, Low-fat, Low-sodium and Low-cholesterol Activity: Activity as tolerated Visit Report/Discharge Packet Instructions: The Mediterranean Diet and Good Health, The DASH Diet, Soft Diet, DI for Small Bowel Obstruction, DI for Hernia Repair, Losartan Discharge Data Attending Provider: Elie Chow Admit Date/Time: 12/26/18 21:43 Discharges patient from system. Discharge Date/Time: 12/27/18 16:48
[2018-12-27] MEDS: LOSARTAN 25 MG TABLET PO (13:12)
[2018-12-27 14:58] VITALS: BMI 39.4
[2018-12-27 15:00] VITALS: BP 143/77; PULSE 89; RESP 18; TEMP 36.7; O2SAT 94
--- NOTE | 2018-12-27 15:08 | PC.NURSE ---
SHIFT SUMMARY: PATIENT HAS HAD AT LEAST 3 LOOSE STOOLS, URGENCY OF STOOLS, WITH SOME INCONTINENCE OF BOWEL ALSO. NO FURTHER ABD PAIN OR NAUSEA. TOLERATING FULL LIQUID DIET LUNCH. HAD BEEN DRINKING ONLY WATER SO FAR PRIOR TO THAT. NOON BG 135. ABD BINDER WAS PUT ON THIS MORNING AFTER ORDERED BY SURGEON. FITS WELL. NUTRITION CONSULT COMPLETED.
--- NOTE | 2018-12-27 16:49 | PC.NURSE ---
pt dc to home w/friend. Pt. A&OX3, denied pain, no n/v, no sob, abd binder in place. patient had 1 small liquid stool before dc. pt escorted by INDUSTRIAL MAINTENANCE MANAGER to the exit.
== END 2018-12-27 16:48 | disposition home or self-care (01) ==
LOC: ED 21:30 → AC 12-27 07:41
PROVIDERS: Emergency Medicine; Admitting Provider Nurse Practitioner Adult Health; Emergency Provider Internal Medicine; Visit Provider Nurse Practitioner Adult Health
DX: K56.600 Partial intestinal obstruction, unspecified as to cause (principal); R10.9 Unspecified abdominal pain; E66.01 Morbid (severe) obesity due to excess calories; Z68.39 Body mass index [BMI] 39.0-39.9, adult; K42.9 Umbilical hernia without obstruction or gangrene; R05 Cough; E87.8 Other disorders of electrolyte and fluid balance, not elsewhere classified; E66.9 Obesity, unspecified; I10 Essential (primary) hypertension
CPT/HCPCS: 36415; 36591; 74022; 80048; 80053; 80061; 81003; 81015; 82962; 83036; 83605; 83690; 85025; 85610; 85730; 87086; 87633; 93005; 93010; 96361; 96374; 96375; 96376; 97161; 99219; 99283; 99285; G0378; J1170; J1885; J2405

== ENCOUNTER 2019-06-11 14:11 | Observation (INO) | payer OTHER, SELFPAY ==
[2018-12-26 22:43] VITALS: BMI 38.3
[2019-06-11] VITALS (8 sets, daily range): BP systolic 118–177; BP diastolic 70–104; PULSE 92–113; RESP 14–20; TEMP 35.9–37.1; O2SAT 92–97; BMI 38.2
[2019-06-11 14:41] LABS: Add Manual Diff / Slide Review NO; Basophils Absolute Auto 0 /uL (0-100); Basophils Percent Auto 0.3 % (0-2); Eosinophils Absolute Auto 100 /uL (0-450); Eosinophils Percent Auto 0.7 % (2-4); Hematocrit 43.8 % (36-46); Hemoglobin 14.4 g/dL (12.0-16.0); Lymphocytes Absolute Auto 1100 /uL (1100-4500); Lymphocytes Percent Auto 8.5 % (25-40); Mean Corpuscular HGB Conc 32.9 % (30-36); Mean Corpuscular Hemoglobin 28.1 PG (26-34); Mean Corpuscular Volume 85.5 fL (80-100); Monocytes Absolute Auto 900 /uL (0-900); Monocytes Percent Auto 6.4 % (3-14); Neutrophils Absolute Auto 11300 /uL (1500-7000); Neutrophils Percent Auto 84.1 % (50-75); Platelet Count 287 X10^3/uL (150-400); Red Blood Cell Count 5.13 X10^6/uL (4.0-5.2); Red Cell Distribution Width 14.6 % (11.6-14.8); White Blood Cell Count 13.4 X10^3/uL (4.5-11.0)
[2019-06-11 14:49] LABS: INR 0.9 (0.9-1.3); Prothrombin Time 10.6 SECONDS (10.1-12.7)
[2019-06-11 14:52] LABS: Alanine Aminotransferase 29 IU/L (9-52); Albumin 4.7 g/dL (3.5-5.0); Albumin Globulin Ratio 1.3 (1.0-2.8); Alkaline Phosphatase 138 U/L (38-126); Aspartate Aminotransferase 28 IU/L (14-36); Bilirubin Total 0.8 mg/dL (0.2-1.3); Blood Urea Nitrogen 15 mg/dL (7-17); Carbon Dioxide 24 mmol/L (22-32); Chloride 102 mmol/L (98-107); Estimated Glomerular Filt Rate > 60.0 mL/min (>60); Globulin 3.6 g/dL (1.7-4.1); Glucose 173 mg/dL (80-110); HEMOLYSIS < 15 (0-50); Lipase 27 U/L (23-300); PTT Partial Thromboplastin Tim 32 SECONDS (26.4-36.2); Potassium 4.1 mmol/L (3.4-5.1); Sodium 139 mmol/L (137-145); Total Protein 8.3 g/dL (6.3-8.2)
[2019-06-11 14:53] LABS: Lactate (Lactic Acid) 1.7 mmol/L (0.7-2.1)
--- NOTE | 2019-06-11 14:55 | ED.ABDPAIN ---
HPI - Abdominal Pain General Chief Complaint: Abdominal Pain Stated Complaint: stomach pain Time Seen by Provider: 06/11/19 14:49 Source: patient and old records reviewed Mode of arrival: Ambulatory Limitations: no limitations History of Present Illness HPI narrative: This is a 73-year-old female comes to the emergency department complaint of abdominal pain patient states it started in the last 24-48 hours. Patient states that Monday she had corn which she thinks may have exacerbated her symptoms. Since then she has not had any fevers, she denies any nausea or vomiting. She has had bowel movements including today which were not quite as formed but or solid. Patient states that she has pain it kind of started more in the middle of the abdomen but is all over according to the patient at this time. She states she does feel more distended and that her hernia seems more painful and hard. Patient denies any flank or back pain. She denies any urinary frequency urgency or dysuria. Denies any vaginal bleeding or discharge. Patient states she has had abdominal surgery in the past she had diverticulitis which ruptured and has stool in the abdomen and had a partial resection. She has also had a bowel obstruction that by her description responded to conservative therapy. Related Data Previous Rx's Medication Instructions Recorded losartan 25 mg PO DAILY #30 tab 12/27/18 metformin 500 mg PO BID #60 tab 12/27/18 Allergies Allergy/AdvReac Type Severity Reaction Status Date / Time No Known Drug Allergies Allergy Verified 06/11/19 16:28 Review of Systems Review of Systems ROS Unobtainable: All systems reviewed & are unremarkable except as noted in HPI and below Constitutional Constitutional: Denies chills, Denies fever(s) and Denies lethargy Cardiovascular Cardiovascular: Denies chest pain, Denies dyspnea and Denies dyspnea on exertion Respiratory Respiratory: Denies dyspnea and Denies dyspnea on exertion Gastrointestinal Gastrointestinal: Reports abdominal pain, Denies melena, Denies hematochezia, Denies change in bowel habits, Denies constipation, Denies diarrhea, Denies nausea, Denies vomiting and Reports other (hernia feels hard) Genitourinary Genitourinary: Reports as per HPI, Denies abnormal vaginal bleeding, Denies hematuria, Denies urinary frequency, Denies dysuria, Denies flank pain, Denies urinary incontinence, Denies urinary hesitancy, Denies urinary urgency and Denies vaginal discharge Musculoskeletal Musculoskeletal: Denies back pain Integumentary/Breasts Skin/Breast: Denies erythema, Denies rash and Denies unusual bruising PFSH Surgical History Perforated diverticulum (Resolved) S/P colon resection (Resolved) Status post scar revision (Resolved) Family History Father Cardiac disease Hx of CABG Dementia Mother Cancer Daughter In good health Social History household members: none Smoking Status: Never smoker Family History Father Cardiac disease Hx of CABG Dementia Mother Cancer Daughter In good health Social History household members: none Smoking Status: Never smoker Exam Narrative Exam Narrative: GENERAL: Alert and oriented x three, obese female in moderate distress. HEENT: Head normocephalic, atraumatic, EOMI, pupils reactive, face symmetric, moist mucous membranes NECK: Supple, full range of motion CARDIOVASCULAR: Regular rate and rhythm without murmurs, rubs or gallops. RESPIRATORY: Breath sounds equal bilaterally, no wheezes rales or rhonchi. ABDOMEN: Soft, generalized moderate tenderness. Hypoactive bowel sounds all 4 quadrants. No guarding or rebound, rigidity, no mass. Patient does have a hernia, some it is not easily reducible but is soft and is not particularly tender to touch in comparison to the rest of her abdomen, a little difficult palpate if she does have a large hernia and she is a fairly obese woman. : No CVA tenderness EXTREMITIES: Normal range of motion, no clubbing or edema. Neurovascularly intact NEUROLOGICAL: Cranial nerves II through XII grossly intact. Moving all extremities SKIN: Warm, dry, no petechiae, no rashes or lesions. Initial Vital Signs Initial Vital Signs: Vital Signs Temperature 96.7 F L 06/11/19 14:18 Pulse Rate 113 H 06/11/19 14:18 Respiratory Rate 14 06/11/19 14:18 Blood Pressure 177/104 H 06/11/19 14:18 Pulse Oximetry 97 06/11/19 14:18 Course Orders Ordered: ED Orders 06/11/19 14:27 EKG-12 Lead Stat 06/11/19 14:30 Complete Blood Count AUTO DIFF Stat Comprehensive Metabolic Panel Stat Lactate (Lactic Acid) Stat Lipase Stat Partial Thromboplastin Time Stat Prothrombin Time INR Stat 06/11/19 14:50 Blood Culture Stat 06/11/19 14:56 CT abdomen pelvis w con Stat Dextrose (D50w) 25 gm IV PRN PRN; Protocol PRN Reason: Hypoglycemia Enoxaparin Sodium (Lovenox) 40 mg SUBCUT DAILY TERRA Sodium Chloride (Normal Saline 0.9%) 1,000 mls @ 100 mls/hr IV CONT TERRA Insulin Aspart (Novolog Flexpen) 0 unit SUBCUT ACHS TERRA; Protocol Morphine Sulfate (Morphine) 2 mg IV Q4HR PRN PRN Reason: Pain, Moderate (4-6) Last Admin: 06/11/19 17:59 Dose: 2 mg Documented by: CURTIS Ondansetron HCl (Zofran) 4 mg IV Q8HR PRN PRN Reason: Nausea And Vomiting Discontinued Medications Sodium Chloride (Normal Saline 0.9%) 1,000 mls @ 1,000 mls/hr IV BOLUS ONE Stop: 06/11/19 15:55 Last Infusion: 06/11/19 16:47 Dose: 0 mls/hr Documented by: Admin: 06/11/19 15:01 Dose: 1,000 mls/hr Documented by: DONI Morphine Sulfate (Morphine) 4 mg IV NOW ONE Stop: 06/11/19 14:57 Last Admin: 06/11/19 15:01 Dose: 4 mg Documented by: DONI Vital Signs Vital signs: Vital Signs - 8 hr 06/11/19 14:18 06/11/19 14:20 06/11/19 14:36 Temperature 96.7 F L 96.7 F L Pulse Rate 113 H 113 H 104 H Respiratory Rate 14 14 18 Blood Pressure 177/104 H 177/104 H Blood Pressure [Left Arm] 151/85 H Pulse Oximetry 97 97 93 06/11/19 15:41 06/11/19 16:16 Temperature Pulse Rate 92 H 101 H Respiratory Rate 17 18 Blood Pressure Blood Pressure [Left Arm] 133/83 142/83 H Pulse Oximetry 97 92 MDM - Abdominal Pain Lab Data Attestation: I reviewed the patient's lab results. Result diagrams: 06/11/19 14:30 06/11/19 14:30 Labs: Lab Results 06/11/19 06/11/19 06/11/19 Range/Units 14:30 14:30 14:30 WBC 13.4 H (4.5-11.0) X10^3/uL RBC 5.13 (4.0-5.2) X10^6/uL Hgb 14.4 (12.0-16.0) g/dL Hct 43.8 (36-46) % MCV 85.5 (80-100) fL MCH 28.1 (26-34) PG MCHC 32.9 (30-36) % RDW 14.6 (11.6-14.8) % Plt Count 287 (150-400) X10^3/uL Neut % (Auto) 84.1 H (50-75) % Lymph % (Auto) 8.5 L (25-40) % [place] % (Auto) 6.4 (3-14) % Eos % (Auto) 0.7 L (2-4) % Baso % (Auto) 0.3 (0-2) % Neut # (Auto) 83045 H (0892-2767) /uL Lymph # (Auto) 1100 (6810-1789) /uL [place] # (Auto) 900 (0-900) /uL Eos # (Auto) 100 (0-450) /uL Baso # (Auto) 0 (0-100) /uL PT 10.6 (10.1-12.7) SECONDS INR 0.9 (0.9-1.3) APTT 32 D (26.4-36.2) SECONDS Sodium 139 (137-145) mmol/L Potassium 4.1 (3.4-5.1) mmol/L Chloride 102 (98-107) mmol/L Carbon Dioxide 24 (22-32) mmol/L BUN 15 (7-17) mg/dL Creatinine 0.60 (0.52-1.04) mg/dL Estimated GFR > 60.0 (>60) mL/min BUN/Creatinine Ratio 25.0 H (6-22) Glucose 173 H (80-110) mg/dL Lactate (0.7-2.1) mmol/L Calcium 10.0 (8.4-10.2) mg/dL Total Bilirubin 0.8 (0.2-1.3) mg/dL AST 28 (14-36) IU/L ALT 29 (9-52) IU/L Alkaline Phosphatase 138 H (38-126) U/L Total Protein 8.3 H (6.3-8.2) g/dL Albumin 4.7 (3.5-5.0) g/dL Globulin 3.6 (1.7-4.1) g/dL Albumin/Globulin Ratio 1.3 (1.0-2.8) Lipase 27 (23-300) U/L 06/11/19 Range/Units 14:30 WBC (4.5-11.0) X10^3/uL RBC (4.0-5.2) X10^6/uL Hgb (12.0-16.0) g/dL Hct (36-46) % MCV (80-100) fL MCH (26-34) PG MCHC (30-36) % RDW (11.6-14.8) % Plt Count (150-400) X10^3/uL Neut % (Auto) (50-75) % Lymph % (Auto) (25-40) % [place] % (Auto) (3-14) % Eos % (Auto) (2-4) % Baso % (Auto) (0-2) % Neut # (Auto) (5961-8094) /uL Lymph # (Auto) (8523-3260) /uL [place] # (Auto) (0-900) /uL Eos # (Auto) (0-450) /uL Baso # (Auto) (0-100) /uL PT (10.1-12.7) SECONDS INR (0.9-1.3) APTT (26.4-36.2) SECONDS Sodium (137-145) mmol/L Potassium (3.4-5.1) mmol/L Chloride (98-107) mmol/L Carbon Dioxide (22-32) mmol/L BUN (7-17) mg/dL Creatinine (0.52-1.04) mg/dL Estimated GFR (>60) mL/min BUN/Creatinine Ratio (6-22) Glucose (80-110) mg/dL Lactate 1.7 (0.7-2.1) mmol/L Calcium (8.4-10.2) mg/dL Total Bilirubin (0.2-1.3) mg/dL AST (14-36) IU/L ALT (9-52) IU/L Alkaline Phosphatase (38-126) U/L Total Protein (6.3-8.2) g/dL Albumin (3.5-5.0) g/dL Globulin (1.7-4.1) g/dL Albumin/Globulin Ratio (1.0-2.8) Lipase (23-300) U/L Imaging Data CT scan - abdomen: Radiologist's impression: Geetha Sheriff 73 F [address] [address] [address] Scan Report Signed Patient: Geetha Sheriff GMR#: [id number] : 1945cct:[id number] Age/Sex: 73 / FDate of Service: 06/11/19 Loc: ED Accession Number: [id number] Procedure: CT abdomen pelvis w con Ordering Provider: Kristy Khoury D.O. PROCEDURE: CT ABDOMEN PELVIS W CON INDICATIONS: abdominal pain, hx of diverticulitis/obstruction, hernia TECHNIQUE: After the administration of intravenous contrast, 5 mm thick sections acquired from the diaphragm to the symphysis. 5 mm coronal and sagittal reformats were acquired. For radiation dose reduction, the following was used: automated exposure control, adjustment of mA and/or kV according to patient size. COMPARISON: None. FINDINGS: Image quality: Excellent. ABDOMEN: Lung bases: Lung bases are clear. Heart size is normal. Solid organs: Hepatic steatosis. Gallbladder unremarkable. Biliary system is non dilated. Pancreas enhances normally. Spleen is normal in size and enhancement. No adrenal nodules. Kidneys demonstrate normal size and enhancement, without hydronephrosis. Bilateral simple appearing renal cysts although some of these are technically too small to characterize accurately. Peritoneum and bowel: Hiatal hernia. Incidentally noted large duodenal diverticulum. No free fluid or air. Incidental colonic diverticulosis. Multiple dilated small bowel loops with scattered air-fluid levels measuring up to 3 cm. There is a midline ventral hernia, suspected transition point, with distal decompressed bowel loops. The rectum is decompressed and otherwise unremarkable Nodes and vessels: No retroperitoneal or mesenteric adenopathy by size criteria. Aorta and inferior vena cava are normal in size. PELVIS: Genitourinary: Bladder wall thickness is normal. Miscellaneous: No inguinal hernias or adenopathy. Bones: No suspicious bony lesions. No vertebral body compression fractures. Diffuse spondylosis and facet arthropathy IMPRESSION: Small bowel obstruction related to midline ventral bowel containing hernia which is the suspected transition point. Technically, cannot exclude incarceration/strangulation. Incidental colonic diverticulosis. Additional chronic and incidental findings as above. Findings were personally telephoned and discussed with Dr. Khoury in the emergency department at 1541 hours 06/11/19. Dictated by: Yunier Rojo M.D. on 06/11/2019 at 15:35 Approved by: Yunier Rojo M.D. on 06/11/2019 at 15:42 ECG Data Attestation: I personally reviewed and interpreted this ECG as follows: Prior ECG tracings: available for review Interpretation: Sinus tachycardia rate of 106 P are 147 QRS of 122 and QTC of 418. No significant ST changes. EKG appears similar to prior 12/26/2018 MDM Narrative Medical decision making narrative: Patient comes in with of abdominal pain and able to palpate a hernia but it although it is not particularly tender. She has not vomiting, she has been having bowel movements but she has also not eaten the last [address] shows what appears to be a bowel obstruction. Spoke with Dr. Javier from the hospital service and she accepts. I also spoke with General surgery Dr. Hardin, who came and saw the patient in the department evaluated and felt she was able to reduce the hernia. Patient's pain was improved some morphine although she was quite sensitive and dropped her O2 sats initially. Otherwise patient's labs show a leukocytosis, glucose of 173, alk-phos of 138. Plan for observation. Discharge Plan Departure Patient Disposition: Admitted as Observation Clinical Impression: Partial bowel obstruction Qualifiers: Intestinal obstruction type: unspecified Qualified Code(s): K56.600 - Partial intestinal obstruction, unspecified as to cause Discharge Date/Time: 06/11/19 16:52 Admit Date/Time: 06/11/19 16:28 Admit Provider: Briana Javier
[2019-06-11] MEDS: MORPHINE 4 MG/ML INJ IV (15:01)
[2019-06-11] MEDS: SODIUM CHLORIDE 0.9% 1,000 ML 1000 ML IV (15:01)
--- NOTE | 2019-06-11 16:20 | PC.NURSE ---
Pt is very somulant after morphine requiring nasal cannula oxygen to maintain sat > 92%. Towel roll behind neck to open airway. She states she has no history of sleep apnea.
--- NOTE | 2019-06-11 16:51 | PC.NURSE ---
Please note: IVF 600 cc in 400 cc wasted. Unable to correct documentation. Provider aware, no new orders.
--- NOTE | 2019-06-11 17:28 | PM.CN ---
History of Present Illness Consult details Date Patient Seen: 06/11/19 Time Patient Seen: 17:29 Chief complaint: stomach pain Reason for consult: Ventral hernia, bowel obstruction Requesting provider: Briana Javier Narrative: This is a 73 yo woman with severe morbid obesity, DM2 (A1c 6.9), ventral hernia, recurrent SBO, who has a history of emergency laparotomy 30 years ago for perforated diverticulitis. Since that time the patient has had her current SBO symptoms, and has had another operation on her abdomen which she believes was for removal of scar tissue and possibly for repair of her hernia. She has had 1 admission to the hospital earlier this year for obstructive symptoms, which resolved within 24 hours. At that time she had a CT scan which showed a ventral hernia with some bowel in it, but it was reducible. She returns today with complaint of generalized abdominal pain, with cramping, and with obstipation since her last bowel movement which was about 4:30 this morning. She denies nausea although she is frequently burping. [facility] Medical History Diverticulitis (Chronic) Hiatal hernia (Acute) Ventral hernia (Acute) Surgical History Perforated diverticulum (Resolved) S/P colon resection (Resolved) Status post scar revision (Resolved) Family History Father Cardiac disease Hx of CABG Dementia Mother Cancer Daughter In good health Social History household members: none Smoking Status: Never smoker Family History Father Cardiac disease Hx of CABG Dementia Mother Cancer Daughter In good health Social History household members: none Smoking Status: Never smoker Meds Home Medications and Allergies Home Medications Medication Instructions Recorded Confirmed Type losartan 25 mg PO DAILY #30 tab 12/27/18 06/11/19 Rx metformin 500 mg PO BID #60 tab 12/27/18 06/11/19 Rx Allergies Allergy/AdvReac Type Severity Reaction Status Date / Time No Known Drug Allergies Allergy Verified 06/11/19 16:28 Review of Systems Review of Systems ROS Unobtainable: All systems reviewed & are unremarkable except as noted in HPI and below Exam Vital Signs (past 8 hours): - 06/11/19 14:18 06/11/19 14:20 06/11/19 14:36 Temperature 96.7 F L 96.7 F L Pulse Rate 113 H 113 H 104 H Respiratory Rate 14 14 18 Blood Pressure 177/104 H 177/104 H Blood Pressure [Left Arm] 151/85 H Pulse Oximetry 97 97 93 06/11/19 15:41 06/11/19 16:16 06/11/19 16:50 Temperature 98.2 F Pulse Rate 92 H 101 H 105 H Respiratory Rate 17 18 20 Blood Pressure 146/88 H Blood Pressure [Left Arm] 133/83 142/83 H Pulse Oximetry 97 92 96 Oxygen Delivery Method Room Air Narrative Exam Narrative: GENERAL: Alert, mildly uncomfortable, cooperative. Answers questions promptly and appropriately. Vital signs noted. HENT: Normocephalic, atraumatic. Hearing intact. Oral mucosa is dry. EYES: Conjunctiva pink, sclera white, no periorbital swelling. CARDIOVASCULAR: Regular rate. No pedal edema. RESPIRATORY: Normal respiratory rate, breathing comfortably on room air. GASTROINTESTINAL: Abdomen soft rounded, obese, partially reducible umbilical hernia; well healed ventral incisional scars; no skin changes GENITOURINARY: No flank tenderness. MUSCULOSKELETAL: Equal tone and mass bilaterally. EXTREMITIES: CMS intact, no pedal edema. SKIN: Warm, dry, soft, appropriate color for ethnicity. No other lesions, rashes, or wounds. NEURO: Alert and Oriented X 3. Good coordination. No ataxia, or sensory deficits, or cognitive issues. PSYCH: Appropriate affect and mood. Objective Imaging CT scan - abdomen: Radiologist's impression: Patient: Geetha Sheriff GMR#: [id number] : 7Acct:[id number] Age/Sex: 73 / FDate of Service: 06/11/19 Loc: ED Accession Number: [id number] Procedure: CT abdomen pelvis w con Ordering Provider: Kristy Khoury D.O. PROCEDURE: CT ABDOMEN PELVIS W CON INDICATIONS: abdominal pain, hx of diverticulitis/obstruction, hernia TECHNIQUE: After the administration of intravenous contrast, 5 mm thick sections acquired from the diaphragm to the symphysis. 5 mm coronal and sagittal reformats were acquired. For radiation dose reduction, the following was used: automated exposure control, adjustment of mA and/or kV according to patient size. COMPARISON: None. FINDINGS: Image quality: Excellent. ABDOMEN: Lung bases: Lung bases are clear. Heart size is normal. Solid organs: Hepatic steatosis. Gallbladder unremarkable. Biliary system is non dilated. Pancreas enhances normally. Spleen is normal in size and enhancement. No adrenal nodules. Kidneys demonstrate normal size and enhancement, without hydronephrosis. Bilateral simple appearing renal cysts although some of these are technically too small to characterize accurately. Peritoneum and bowel: Hiatal hernia. Incidentally noted large duodenal diverticulum. No free fluid or air. Incidental colonic diverticulosis. Multiple dilated small bowel loops with scattered air-fluid levels measuring up to 3 cm. There is a midline ventral hernia, suspected transition point, with distal decompressed bowel loops. The rectum is decompressed and otherwise unremarkable Nodes and vessels: No retroperitoneal or mesenteric adenopathy by size criteria. Aorta and inferior vena cava are normal in size. PELVIS: Genitourinary: Bladder wall thickness is normal. Miscellaneous: No inguinal hernias or adenopathy. Bones: No suspicious bony lesions. No vertebral body compression fractures. Diffuse spondylosis and facet arthropathy IMPRESSION: Small bowel obstruction related to midline ventral bowel containing hernia which is the suspected transition point. Technically, cannot exclude incarceration/strangulation. Incidental colonic diverticulosis. Additional chronic and incidental findings as above. Findings were personally telephoned and discussed with Dr. Khoury in the emergency department at 1541 hours 06/11/19. Dictated by: Yunier Rojo M.D. on 06/11/2019 at 15:35 Approved by: Yunier Rojo M.D. on 06/11/2019 at 15:42 Labs Result Diagrams: 06/11/19 14:30 06/11/19 14:30 Labs: Laboratory Results - last 24 hr 06/11/19 06/11/19 06/11/19 14:30 14:30 14:30 WBC 13.4 H RBC 5.13 Hgb 14.4 Hct 43.8 MCV 85.5 MCH 28.1 MCHC 32.9 RDW 14.6 Plt Count 287 Neut % (Auto) 84.1 H Lymph % (Auto) 8.5 L [place] % (Auto) 6.4 Eos % (Auto) 0.7 L Baso % (Auto) 0.3 Neut # (Auto) 12965 H Lymph # (Auto) 1100 [place] # (Auto) 900 Eos # (Auto) 100 Baso # (Auto) 0 PT 10.6 INR 0.9 APTT 32 D Sodium 139 Potassium 4.1 Chloride 102 Carbon Dioxide 24 BUN 15 Creatinine 0.60 Estimated GFR > 60.0 BUN/Creatinine Ratio 25.0 H Glucose 173 H Lactate Calcium 10.0 Total Bilirubin 0.8 AST 28 ALT 29 Alkaline Phosphatase 138 H Total Protein 8.3 H Albumin 4.7 Globulin 3.6 Albumin/Globulin Ratio 1.3 Lipase 27 06/11/19 14:30 WBC RBC Hgb Hct MCV MCH MCHC RDW Plt Count Neut % (Auto) Lymph % (Auto) [place] % (Auto) Eos % (Auto) Baso % (Auto) Neut # (Auto) Lymph # (Auto) [place] # (Auto) Eos # (Auto) Baso # (Auto) PT INR APTT Sodium Potassium Chloride Carbon Dioxide BUN Creatinine Estimated GFR BUN/Creatinine Ratio Glucose Lactate 1.7 Calcium Total Bilirubin AST ALT Alkaline Phosphatase Total Protein Albumin Globulin Albumin/Globulin Ratio Lipase Assessment & Plan Assessment and plan (1) Partial bowel obstruction: Problem details: Last BM was this morning, minimally dilated small bowel on CT scan, reducible ventral hernia. On prior admission, pt had almost identical presentation and resolved within 24 hours. Qualifiers: Intestinal obstruction type: unspecified Qualified Code(s): K56.600 - Partial intestinal obstruction, unspecified as to cause Current visit: Yes Status: Acute (2) Ventral hernia: Problem details: Reducible hernia with loops of bowel in it Current visit: No Status: Acute (3) Morbid obesity: Problem details: Pt has attempted weight loss for the past six months using low carb diet, but has not had any weight loss that she knows of. Increases risk of hernia recurrence and wound infection after hernia repair. Current visit: Yes Status: Acute (4) DM2 (diabetes mellitus, type 2): Problem details: Hgb A1c 6.9. Increases risk of mesh infection and poor healing of hernia repair. Current visit: Yes Status: Acute Assessment & Plan narrative: This is a 73-year-old woman with morbid obesity and her current set of obstructive symptoms which seemed to be related to a ventral hernia. She has a history of multiple abdominal operations and likely has some intra-abdominal adhesions which are expected to be significant. Both the ventral hernia and the adhesions may be contributing to her partial obstructive symptoms. On her previous admission in December she was recommended to work on weight loss and to consider elective ventral hernia repair when she had better control of her weight and her diabetes. She said that it was at that admission in December that she found out she was diabetic and hypertensive. She has not had any success with weight loss. She is now here again with obstructive symptoms. Her CT scan looks identical to her prior scan in December which shows some loops of bowel in the hernia defect. On exam the bowel is reducible but pops right back out after reducing it. I explained to the patient that I would rather repair her hernia which she has had some weight loss and better control of her diabetes. However if she keeps coming to the ER with these symptoms we may need to go ahead and repair it sooner. The other complicating factor is that fixing the hernia may not entirely resolve her symptoms since she may have some obstructive symptoms from intra-abdominal adhesions. Recommendations: IV fluid hydration NPO except for sips and ice chips for comfort Correct electrolytes (potassium greater than 4, magnesium greater than 2 ) Ambulation as tolerated Place NG tube if patient has vomiting Suppositories once daily for rectal stimulation Once patient passes gas or stool, I recommend we go ahead with a small-bowel follow-through to attempt to identify areas of kink or partial obstruction of the bowel If the obstruction does not resolve, we will consider operating on this admission. Time Spent With Patient Time with patient: Greater than 35 minutes
[2019-06-11] MEDS: MORPHINE 2 MG/ML INJ IV (17:59)
--- NOTE | 2019-06-11 18:01 | P.HP_ITS ---
History of Present Illness History of Present Illness Date Patient Seen: 06/11/19 Chief complaint: stomach pain Narrative: The patient is a 73-year-old female with a history of hypertension, type 2 diabetes, who was hospitalized in December of this year for partial small- bowel obstruction. She has a history of a perforated diverticulum requiring resection 25 years ago. She ultimately had development of a bowel obstruction with lysis of adhesions following that. She reports over the year she has had intermittent abdominal pain but has been able to manage it at home. She did well until December of this year where she developed severe abdominal pain requiring hospitalization. The patient was seen and evaluated treated for a partial small-bowel obstruction. Since that time she has had no further symptoms. The patient was in her usual state of health until Monday. She had dinner with a friend which included a casserole with corn. Later that night she had significant abdominal discomfort. She had no associated nausea or vomiting. She had a bowel movement the next day and thought her symptoms would resolved she again developed spasmodic severe abdominal pain. She has a known ventral hernia in noted some protrusion of the ventral hernia. Because the pain persisted the patient presented to the emergency room for evaluation. In the emergency room she underwent CT scan of the abdomen and pelvis. The findings are as follows : Small bowel obstruction related to midline ventral bowel containing hernia which is the suspected transition point. Technically, cannot exclude incarceration/strangulation. Incidental colonic diverticulosis. The patient was seen and evaluated by Dr. Jovel from General surgery. Recommendations were to treat her for a partial small-bowel obstruction and follow up with a small-bowel follow-through should she pass gas or stool in the morning. The patient received 4 mg of morphine in the emergency room with some relief of her pain. Currently she is quite uncomfortable with recurrent abdominal pain. She rates her pain at 5/10 in intensity. She also notes some distention of her abdomen but the ventral hernia has been repaired reduced by Dr. Jovel. Patient History Medical History (Updated 06/11/19 @ 18:09 by Briana Javier MD) Diverticulitis (Chronic) DM2 (diabetes mellitus, type 2) (Acute) Hiatal hernia (Acute) Morbid obesity (Acute) Ventral hernia (Acute) Surgical History Perforated diverticulum (Resolved) S/P colon resection (Resolved) Status post scar revision (Resolved) Family History Father Cardiac disease Hx of CABG Dementia Mother Cancer Daughter In good health Social History household members: none Smoking Status: Never smoker Family & Social History Family History Father Cardiac disease Hx of CABG Dementia Mother Cancer Daughter In good health Social History: household members none Safety & Behavioral: Feels Safe in Current Yes Environment Been Physically Hurt or No Threatened By a Person Tobacco & Substance use: Smoking Status Never smoker alcohol intake frequency 0-2 drinks per day Substance Use Type does not use Meds Home Medications and Allergies Home Medications Medication Instructions Recorded Confirmed Type losartan 25 mg PO DAILY #30 tab 12/27/18 06/11/19 Rx metformin 500 mg PO BID #60 tab 12/27/18 06/11/19 Rx Allergies Allergy/AdvReac Type Severity Reaction Status Date / Time No Known Drug Allergies Allergy Verified 06/11/19 16:28 Review of Systems Review of Systems ROS Unobtainable: All systems reviewed & are unremarkable except as noted in HPI and below Exam Vital Signs (past 8 hours): - 06/11/19 14:18 06/11/19 14:20 06/11/19 14:36 Temperature 96.7 F L 96.7 F L Pulse Rate 113 H 113 H 104 H Respiratory Rate 14 14 18 Blood Pressure 177/104 H 177/104 H Blood Pressure [Left Arm] 151/85 H Pulse Oximetry 97 97 93 06/11/19 15:41 06/11/19 16:16 06/11/19 16:50 Temperature 98.2 F Pulse Rate 92 H 101 H 105 H Respiratory Rate 17 18 20 Blood Pressure 146/88 H Blood Pressure [Left Arm] 133/83 142/83 H Pulse Oximetry 97 92 96 Oxygen Delivery Method Room Air Narrative Exam Narrative: Very pleasant obese female uncomfortable with abdominal pain HEENT: Normocephalic atraumatic, extraocular muscles are intact oropharynx is clear, neck is supple without adenopathy or thyroid may Lungs: Coarse breath sounds with occasional scattered rhonchi at the bases bilaterally Cardiac exam: Regular rate and rhythm normal S1-S2 Abdomen: The abdomen is distended, soft, but tender in the midepigastric area. Ventral hernia is palpated but reduced. There is no hepatosplenomegaly. She has hyperactive bowel tones in all 4 quadrants. There is no board-like rigidity, no rebound tenderness, the belly is diffusely enlarged Extremities: No clubbing cyanosis or edema Skin exam: Bruising on the right lower extremity, no other lesions noted Neuro exam: Nonfocal Musculoskeletal exam: Normal bulk and tone of upper and lower extremity Objective Labs Result Diagrams: 06/11/19 14:30 06/11/19 14:30 Labs: Laboratory Results - last 24 hr 06/11/19 06/11/19 06/11/19 14:30 14:30 14:30 WBC 13.4 H RBC 5.13 Hgb 14.4 Hct 43.8 MCV 85.5 MCH 28.1 MCHC 32.9 RDW 14.6 Plt Count 287 Neut % (Auto) 84.1 H Lymph % (Auto) 8.5 L [place] % (Auto) 6.4 Eos % (Auto) 0.7 L Baso % (Auto) 0.3 Neut # (Auto) 05380 H Lymph # (Auto) 1100 [place] # (Auto) 900 Eos # (Auto) 100 Baso # (Auto) 0 PT 10.6 INR 0.9 APTT 32 D Sodium 139 Potassium 4.1 Chloride 102 Carbon Dioxide 24 BUN 15 Creatinine 0.60 Estimated GFR > 60.0 BUN/Creatinine Ratio 25.0 H Glucose 173 H Lactate Calcium 10.0 Total Bilirubin 0.8 AST 28 ALT 29 Alkaline Phosphatase 138 H Total Protein 8.3 H Albumin 4.7 Globulin 3.6 Albumin/Globulin Ratio 1.3 Lipase 27 06/11/19 14:30 WBC RBC Hgb Hct MCV MCH MCHC RDW Plt Count Neut % (Auto) Lymph % (Auto) [place] % (Auto) Eos % (Auto) Baso % (Auto) Neut # (Auto) Lymph # (Auto) [place] # (Auto) Eos # (Auto) Baso # (Auto) PT INR APTT Sodium Potassium Chloride Carbon Dioxide BUN Creatinine Estimated GFR BUN/Creatinine Ratio Glucose Lactate 1.7 Calcium Total Bilirubin AST ALT Alkaline Phosphatase Total Protein Albumin Globulin Albumin/Globulin Ratio Lipase Assessment & Plan Assessment and plan (1) DM2 (diabetes mellitus, type 2): Problem details: Patient with newly diagnosed type 2 diabetes during her prior admission. It her hemoglobin A1c was 6.9 at that time. Patient is on metformin at 500 b.i.d.. Id the metformin will be held in the hospital. Patient will be given IV fluids then placed on a sliding scale of insulin. Current visit: Yes Status: Acute Assessment & Plan narrative: 1. Partial small-bowel obstruction, present on admission, recurrent. Patient with a known ventral hernia, CT scan confirming transition point. The patient also has a history of adhesions from prior surgery. She is quite uncomfortable at this time. She did have a bowel movement this morning. It however she has continued significant pain. White count is elevated. She has not had nausea but does report inability to tolerate much intake. Plan at this time the patient will be kept NPO. She will be started on IV fluids. Will continue pain medication. Will correct any electrolyte abnormalities. Anticipate small-bowel follow-through tomorrow should she start moving gas or stool. Will defer General surgery whether definitive surgery will be needed for her ventral hernia repair at this admission or as an elective procedure as an outpatient. 2. Type 2 diabetes, normally managed with metformin. Prior hemoglobin A1c was 6.9. The patient will be placed on a sliding scale of insulin at this time. Metformin will be held. 3. Hypertension, patient normally on losartan. S she is NPO Will hold her losartan and resume when she is able to take oral intake. 4. Morbid obesity, 5. DVT prophylaxis will place her on Lovenox. Patient indicates she is a full code and will note that her record accordingly.
[2019-06-11] MEDS: SODIUM CHLORIDE 0.9% 1,000 ML 100 ML IV (19:35)
[2019-06-12 00:10] VITALS: BP 104/54; PULSE 89; RESP 16; TEMP 37.3
[2019-06-12 02:23] LABS: RBC Urine None Seen (0-5/HPF)
[2019-06-12 02:25] LABS: Appearance Urine UA CLEAR; Bilirubin Urine UA NEGATIVE (NEGATIVE); Color Urine UA YELLOW; Glucose Urine UA NEGATIVE (Negative); Ketones Urine UA NEGATIVE (NEGATIVE); Leukocyte Esterase Urine UA TRACE (NEGATIVE); Nitrite Urine UA NEGATIVE (Negative); Occult Blood Urine UA NEGATIVE (Negative); Protein Urine UA NEGATIVE (Negative); Specific Gravity Urine UA 1.015 (1.000-1.035); Urobilinogen Urine UA 0.2 E.U./dL (0.2)
[2019-06-12 02:43] LABS: Bacteria Urine Occasional (0-1); Culture Indicated Urine Specimen Cultured; Squamous Epithelial Cell Urine 1-5 /HPF (0-5/HPF); WBC Urine 1-5/HPF (0-5/HPF)
[2019-06-12 04:59] VITALS: BP 119/64; PULSE 86; RESP 16; TEMP 36.8; O2SAT 91
[2019-06-12] MEDS: ACETAMINOPHEN 325 MG TABLET 650 MG PO (05:00)
[2019-06-12] MEDS: SODIUM CHLORIDE 0.9% 1,000 ML 100 ML IV (05:01)
[2019-06-12 05:59] LABS: Add Manual Diff / Slide Review NO; Basophils Absolute Auto 0 /uL (0-100); Basophils Percent Auto 0.3 % (0-2); Eosinophils Absolute Auto 200 /uL (0-450); Eosinophils Percent Auto 2.1 % (2-4); Hematocrit 36.9 % (36-46); Hemoglobin 12.4 g/dL (12.0-16.0); Lymphocytes Absolute Auto 1800 /uL (1100-4500); Lymphocytes Percent Auto 23.7 % (25-40); Mean Corpuscular HGB Conc 33.4 % (30-36); Mean Corpuscular Hemoglobin 28.7 PG (26-34); Mean Corpuscular Volume 85.8 fL (80-100); Monocytes Absolute Auto 600 /uL (0-900); Monocytes Percent Auto 8.4 % (3-14); Neutrophils Absolute Auto 5000 /uL (1500-7000); Neutrophils Percent Auto 65.5 % (50-75); Platelet Count 213 X10^3/uL (150-400); Red Blood Cell Count 4.31 X10^6/uL (4.0-5.2); Red Cell Distribution Width 14.9 % (11.6-14.8); White Blood Cell Count 7.7 X10^3/uL (4.5-11.0)
[2019-06-12 06:03] LABS: Alanine Aminotransferase 25 IU/L (9-52); Albumin 3.5 g/dL (3.5-5.0); Albumin Globulin Ratio 1.2 (1.0-2.8); Alkaline Phosphatase 91 U/L (38-126); Aspartate Aminotransferase 22 IU/L (14-36); BUN Creatinine Ratio 23.3 (6-22); Bilirubin Total 0.8 mg/dL (0.2-1.3); Blood Urea Nitrogen 14 mg/dL (7-17); Calcium 8.5 mg/dL (8.4-10.2); Carbon Dioxide 26 mmol/L (22-32); Chloride 106 mmol/L (98-107); Estimated Glomerular Filt Rate > 60.0 mL/min (>60); Globulin 2.9 g/dL (1.7-4.1); Glucose 129 mg/dL (80-110); HEMOLYSIS < 15 (0-50); Sodium 139 mmol/L (137-145); Total Protein 6.4 g/dL (6.3-8.2)
--- NOTE | 2019-06-12 06:38 | PC.NURSE ---
Addendum entered by Irma Poe R.N. 06/12/19 06:42: Pt had two unmeasured voids. Hat is in toilet but pt misses hat each time. Repositioned hat for UOP catch next void. Original Note: Pt reports unable to sleep overnight. Restless legs present. Pt states she usually wakes up at home and walks around and takes a hot bath and goes back to sleep. Pt requested something for sleep, provider notified. Pt NPO. Provider ordered tylenol with small sip only. Pt had no further complaints, denies abd pain and is states is passing gas 4x overnight.
[2019-06-12 07:30] VITALS: BP 121/66; PULSE 87; RESP 16; TEMP 36.7; O2SAT 91
--- NOTE | 2019-06-12 08:19 | DI.RAD.S_ITS ---
PROCEDURE: FL SMALL BOWEL FOLLOW THROUGH INDICATIONS: recurrent SBO; pre op plan;eval areas of partial obstruction COMPARISON: None. FINDINGS: KUB: Preprocedural circus agent film demonstrates a normal bowel gas pattern. No suspicious abdominal calcifications. Visualized solid organ contours appear normal. No suspicious bony abnormalities. Numerous surgical clips. Small bowel: Incidental duodenal diverticulum. There is normal transit time of barium through the small bowel. Small bowel loops are of normal caliber throughout. Mucosal folds are smooth and of normal thickness. No strictures, intraluminal masses, or extrinsic mass effects are noted. The terminal ileum is identified, and is normal in morphology. IMPRESSION: Incidental duodenal diverticulum. No specific evidence of obstruction. Normal transit time. Dictated by: Yunier Rojo M.D. on 06/12/2019 at 10:22 Approved by: Yunier Rojo M.D. on 06/12/2019 at 10:23
--- NOTE | 2019-06-12 08:23 | P.PN_ITS ---
Subjective Subjective Date Patient Seen: 06/12/19 Time Patient Seen: 08:23 Interval history: Pt now passing flatus; has not passed stool yet. Pain is improved. Denies nausea/vomiting. Feeling better. Exam Vital Signs (past 8 hours): - 06/12/19 04:59 06/12/19 07:30 Temperature 98.3 F 98.1 F Pulse Rate 86 87 Respiratory Rate 16 16 Blood Pressure 119/64 121/66 Pulse Oximetry 91 91 Oxygen Delivery Method Nasal Cannula Oxygen Flow Rate 93 Narrative Exam Narrative: GENERAL: Alert, oriented, comfortable EYES: Conjunctiva pink, sclera white, no periorbital swelling. CARDIOVASCULAR: Regular rate. No pedal edema. RESPIRATORY: Normal respiratory rate, breathing comfortably on room air. GASTROINTESTINAL: Abdomen soft, rounded, obese; reducible supraumbilical ventral hernia; well healed ventral incisional scars; no skin changes GENITOURINARY: No flank tenderness. MUSCULOSKELETAL: Equal tone and mass bilaterally. EXTREMITIES: CMS intact, no pedal edema. SKIN: Warm, dry, soft, appropriate color for ethnicity. No other lesions, rashes, or wounds. PSYCH: Appropriate affect and mood. Objective Labs Result Diagrams: 06/12/19 05:15 06/12/19 05:15 Labs: Laboratory Results - last 24 hr 06/11/19 06/11/19 06/11/19 14:30 14:30 14:30 WBC 13.4 H RBC 5.13 Hgb 14.4 Hct 43.8 MCV 85.5 MCH 28.1 MCHC 32.9 RDW 14.6 Plt Count 287 Neut % (Auto) 84.1 H Lymph % (Auto) 8.5 L [place] % (Auto) 6.4 Eos % (Auto) 0.7 L Baso % (Auto) 0.3 Neut # (Auto) 61223 H Lymph # (Auto) 1100 [place] # (Auto) 900 Eos # (Auto) 100 Baso # (Auto) 0 PT 10.6 INR 0.9 APTT 32 D Sodium 139 Potassium 4.1 Chloride 102 Carbon Dioxide 24 BUN 15 Creatinine 0.60 Estimated GFR > 60.0 BUN/Creatinine Ratio 25.0 H Glucose 173 H Lactate Calcium 10.0 Total Bilirubin 0.8 AST 28 ALT 29 Alkaline Phosphatase 138 H Total Protein 8.3 H Albumin 4.7 Globulin 3.6 Albumin/Globulin Ratio 1.3 Lipase 27 Urine Color Urine Appearance Urine pH Ur Specific [place] Urine Protein Urine Glucose (UA) Urine Ketones Urine Occult Blood Urine Nitrate Urine Bilirubin Urine Urobilinogen Ur Leukocyte Esterase Urine RBC Urine WBC Ur Squamous Epith Cells Urine Bacteria Ur Culture Indicated? 06/11/19 06/11/19 06/12/19 14:30 22:30 05:15 WBC 7.7 RBC 4.31 Hgb 12.4 Hct 36.9 MCV 85.8 MCH 28.7 MCHC 33.4 RDW 14.9 H Plt Count 213 Neut % (Auto) 65.5 Lymph % (Auto) 23.7 L [place] % (Auto) 8.4 Eos % (Auto) 2.1 Baso % (Auto) 0.3 Neut # (Auto) 5000 Lymph # (Auto) 1800 [place] # (Auto) 600 Eos # (Auto) 200 Baso # (Auto) 0 PT INR APTT Sodium Potassium Chloride Carbon Dioxide BUN Creatinine Estimated GFR BUN/Creatinine Ratio Glucose Lactate 1.7 Calcium Total Bilirubin AST ALT Alkaline Phosphatase Total Protein Albumin Globulin Albumin/Globulin Ratio Lipase Urine Color Yellow Urine Appearance Clear Urine pH 5.0 Ur Specific [place] 1.015 Urine Protein Negative Urine Glucose (UA) Negative Urine Ketones Negative Urine Occult Blood Negative Urine Nitrate Negative Urine Bilirubin Negative Urine Urobilinogen 0.2 Ur Leukocyte Esterase Trace H Urine RBC None seen Urine WBC 1-5/hpf Ur Squamous Epith Cells 1-5 /hpf Urine Bacteria Occasional (0-1) Ur Culture Indicated? Specimen cultured 06/12/19 05:15 WBC RBC Hgb Hct MCV MCH MCHC RDW Plt Count Neut % (Auto) Lymph % (Auto) [place] % (Auto) Eos % (Auto) Baso % (Auto) Neut # (Auto) Lymph # (Auto) [place] # (Auto) Eos # (Auto) Baso # (Auto) PT INR APTT Sodium 139 Potassium 4.0 Chloride 106 Carbon Dioxide 26 BUN 14 Creatinine 0.60 Estimated GFR > 60.0 BUN/Creatinine Ratio 23.3 H Glucose 129 H Lactate Calcium 8.5 Total Bilirubin 0.8 AST 22 ALT 25 Alkaline Phosphatase 91 Total Protein 6.4 Albumin 3.5 Globulin 2.9 Albumin/Globulin Ratio 1.2 Lipase Urine Color Urine Appearance Urine pH Ur Specific [place] Urine Protein Urine Glucose (UA) Urine Ketones Urine Occult Blood Urine Nitrate Urine Bilirubin Urine Urobilinogen Ur Leukocyte Esterase Urine RBC Urine WBC Ur Squamous Epith Cells Urine Bacteria Ur Culture Indicated? Assessment & Plan Assessment and plan (1) Morbid obesity: Problem details: Pt has attempted weight loss for the past six months using low carb diet, but ennis s not had any weight loss that she knows of. Increases risk of hernia recurrence and wound infection after hernia repair. Current visit: Yes Status: Acute (2) Ventral hernia: Problem details: Reducible hernia with loops of bowel in it Current visit: No Status: Acute (3) Partial bowel obstruction: Problem details: Passing gas as of this morning; no nausea; symptoms improving/resolving; abdominal pain improved Qualifiers: Intestinal obstruction type: unspecified Qualified Code(s): K56.600 - Partial intestinal obstruction, unspecified as to cause Current visit: Yes Status: Acute Assessment & Plan narrative: The patient has improved as she did on her prior admission. However, it is unclear whether her hernia or intra abdominal adhesions are the cause of her SBO. My concern is, if we move forward with ventral hernia repair she may continue to have SBO's. This is her second admi ssion this year for the same symptoms. SBFT is needed for surgical planning regarding ventral hernia repair alone vs ex lap, lysis of adhesions, and hernia repair. Recommendations: 1) Keep NPO for now 2) replete electrolytes K>4, Mg>2 3) SBFT today to evaluate for areas of matted bowel/PSBO 4) ok to advance diet to clears, once SBFT is done, if contrast passes through to colon. 5) dispo planning pending results of SBFT and patient tolerance of diet advancement 6) pt should see me as an outpatient to plan elective surgery before her next SBO Quality VTE Deep Vein Thrombosis/Pulmonary Embolism Present on Admission: No
[2019-06-12] MEDS: ONDANSETRON 4 MG/2 ML INJ IV (10:46)
[2019-06-12] MEDS: ENOXAPARIN 40 MG/0.4 ML SYRINGE SUBCUT (10:57)
[2019-06-12] MEDS: MORPHINE 2 MG/ML INJ IV (11:01)
--- NOTE | 2019-06-12 11:21 | PC.NURSE ---
Pt was taken for her small bowel follow through procedure at approx. 0945. She returned to the AC floor at 1030. Pt reported some nausea and has had multiple episodes of diarrhea with painful cramping. Pt has been medicated with 4mg IV Zofran and 2mg IV Morphine. Upon reassessment pt was resting with eyes closed in her bed and allowed to sleep.
--- NOTE | 2019-06-12 11:22 | CM.DANOTE ---
DCP: Case received, EMR reviewed and met with patient. Introduced self and role. Was able to meet with patient and obtain baseline health information and living situation. DCP assessment/template, completed with information currently available. Patient is a 73 year old female who admitted yesterday afternoon to the care of the hospitalist team. PCP: Dr. Luciana Chance at [facility]. Payer: confirmed: [facility]. Patient came to the hospital via private vehicle secondary to abdominal pain. Patient holds diagnosis of partial small bowel obstruction. Patient had been having some testing done, prior to this conference planner meeting with her, but was able to meet with her after her tests. Patient also has a ventral hernia, but may be having surgery at a later date. She also has history of diabetes type 2 and HTN. Met with patient in her room, pleasant, alert and oriented, was laying in her bead. She lives in [place] in her own home alone, and is independent and driving. She does have supportive friends to help her with any needs. P: DCP to continue to follow. At this time, patient is awaiting abdominal tests to come back to determine if she will need any surgery. She should be able to return home when she is medically stable. Margo Mon RN/Rubbing Bed Operator
[2019-06-12 12:00] VITALS: BP 119/59; PULSE 89; RESP 16; TEMP 36.4; O2SAT 91
[2019-06-12] MEDS: INSULIN ASPART 100 UNIT/ML INSULN PEN SUBCUT (12:12)
[2019-06-12 15:32] VITALS: BP 117/60; PULSE 83; RESP 18; TEMP 36.5; O2SAT 94
[2019-06-12 17:01] VITALS: O2SAT 98
--- NOTE | 2019-06-12 17:21 | P.DS_ITS ---
History of Present Illness History of Present Illness Chief complaint: stomach pain Narrative: The patient is a 73-year-old female with a history of hypertension, type 2 diabetes, who was hospitalized in December of this year for partial small- bowel obstruction. She has a history of a perforated diverticulum requiring resection 25 years ago. She ultimately had development of a bowel obstruction with lysis of adhesions following that. She reports over the year she has had intermittent abdominal pain but has been able to manage it at home. She did well until December of this year where she developed severe abdominal pain requiring hospitalization. The patient was seen and evaluated treated for a partial small-bowel obstruction. Since that time she has had no further symptoms. The patient was in her usual state of health until Monday. She had dinner with a friend which included a casserole with corn. Later that night she had significant abdominal discomfort. She had no associated nausea or vomiting. She had a bowel movement the next day and thought her symptoms would resolved she again developed spasmodic severe abdominal pain. She has a known ventral hernia in noted some protrusion of the ventral hernia. Because the pain persisted the patient presented to the emergency room for evaluation. In the emergency room she underwent CT scan of the abdomen and pelvis. The findings are as follows : Small bowel obstruction related to midline ventral bowel containing hernia which is the suspected transition point. Technically, cannot exclude incarceration/strangulation. Incidental colonic diverticulosis. The patient was seen and evaluated by Dr. Jovel from General surgery. Recommendations were to treat her for a partial small-bowel obstruction and follow up with a small-bowel follow-through should she pass gas or stool in the morning. The patient received 4 mg of morphine in the emergency room with some relief of her pain. Currently she is quite uncomfortable with recurrent abdominal pain. She rates her pain at 5/10 in intensity. She also notes some distention of her abdomen but the ventral hernia has been repaired reduced by Dr. Jovel. Discharge Providers Provider Date of admission: 06/11/19 16:28 Discharge Date: 06/12/19 Discharge provider: Briana Javier MD Summary Hospital Course Discharge Diagnosis: 1. Partial small-bowel obstruction, resolved 2. Ventral hernia, reduced 3. Hypertension 4. Type 2 diabetes 5. Morbid obesity Hospital Course: Patient is a 73-year-old female who has a history of ruptured diverticulum requiring resection followed by lysis of adhesions for a bowel obstruction, 20 years ago. She presented with a partial small-bowel obstruction and December. The patient was asymptomatic until yesterday. She presented with abdominal pain, but no nausea or vomiting. The patient had a upper GI small-b owel follow-through today. There was no evidence of obstruction. She was seen in consultation by Dr. Jovel. The patient's ventral hernia was reduced. She also instructed the patient on how to reduce the hernia should it protrude again. Patient's diet was advanced to clear liquid and then advanced as tolerated. She tolerated this without difficulty. The patient was deemed appropriate for discharge and arrangements were made for her to be discharged home. Status at Discharge Cognitive/behavioral status at discharge: oriented Functional status at discharge: independent ambulation Overall status at discharge: patient is back to baseline Time Spent with Patient Time spent: Less than 30 minutes Exam Vital Signs (past 8 hours): - 06/12/19 12:00 06/12/19 15:32 Temperature 97.6 F 97.7 F Pulse Rate 89 83 Respiratory Rate 16 18 Blood Pressure 119/59 L 117/60 Pulse Oximetry 91 94 Oxygen Delivery Method Nasal Cannula Oxygen Flow Rate 93 Narrative Exam Narrative: Pleasant female resting comfortably in no obvious distress Lungs: Clear to auscultation Cardiac exam: Regular rate rhythm normal S1-S2 Abdomen: Distended, soft, mild tenderness in the midepigastric area. There is no hepatosplenomegaly noted no rebound tender S, no board-like rigidity Extremities: No edema Objective Labs Result Diagrams: 06/12/19 05:15 06/12/19 05:15 Labs: Laboratory Results - last 24 hr 06/11/19 06/12/19 06/12/19 22:30 05:15 05:15 WBC 7.7 RBC 4.31 Hgb 12.4 Hct 36.9 MCV 85.8 MCH 28.7 MCHC 33.4 RDW 14.9 H Plt Count 213 Neut % (Auto) 65.5 Lymph % (Auto) 23.7 L [place] % (Auto) 8.4 Eos % (Auto) 2.1 Baso % (Auto) 0.3 Neut # (Auto) 5000 Lymph # (Auto) 1800 [place] # (Auto) 600 Eos # (Auto) 200 Baso # (Auto) 0 Sodium 139 Potassium 4.0 Chloride 106 Carbon Dioxide 26 BUN 14 Creatinine 0.60 Estimated GFR > 60.0 BUN/Creatinine Ratio 23.3 H Glucose 129 H Calcium 8.5 Total Bilirubin 0.8 AST 22 ALT 25 Alkaline Phosphatase 91 Total Protein 6.4 Albumin 3.5 Globulin 2.9 Albumin/Globulin Ratio 1.2 Urine Color Yellow Urine Appearance Clear Urine pH 5.0 Ur Specific [place] 1.015 Urine Protein Negative Urine Glucose (UA) Negative Urine Ketones Negative Urine Occult Blood Negative Urine Nitrate Negative Urine Bilirubin Negative Urine Urobilinogen 0.2 Ur Leukocyte Esterase Trace H Urine RBC None seen Urine WBC 1-5/hpf Ur Squamous Epith Cells 1-5 /hpf Urine Bacteria Occasional (0-1) Ur Culture Indicated? Specimen cultured Discharge Plan Discharge Plan Discharge Problem: Partial bowel obstruction Patient Disposition: Home Discharge comment: Follow-up in clinic with Dr. Jovel in 1-2 weeks Discharge Med Rec/Prescriptions Prescriptions: Continued losartan 25 mg Tablet 25 mg PO DAILY Qty: 30 RF: 0 metformin 500 mg tablet 500 mg PO BID Qty: 60 RF: 0 Provider Discharge Instructions Diet: Diet as Tolerated, Carb-consistent/Diabetic and Low-sodium Activity: As tolerated Discharge Data Attending Provider: Briana Javier Admit Date/Time: 06/11/19 16:28 Quality VTE Deep Vein Thrombosis/Pulmonary Embolism Present on Admission: No
--- NOTE | 2019-06-12 20:19 | PC.NURSE ---
2000: Patient discharged home per MD order, verbalized understanding of discharge instructions, discussed importance of F/U with Dr. Hardin in 1-2 week, diet, and activity level. Home via private vehicle.
== END 2019-06-12 20:22 | disposition home or self-care (01) ==
LOC: ED 16:10 → AC 16:29
PROVIDERS: Admitting Provider Internal Medicine; Emergency Provider Emergency Medicine; Visit Provider Internal Medicine
DX: K56.600 Partial intestinal obstruction, unspecified as to cause (principal); R10.9 Unspecified abdominal pain; K43.9 Ventral hernia without obstruction or gangrene; K56.51 Intestinal adhesions [bands], with partial obstruction; E66.01 Morbid (severe) obesity due to excess calories; Z68.37 Body mass index [BMI] 37.0-37.9, adult; E11.9 Type 2 diabetes mellitus without complications; Z79.84 Long term (current) use of oral hypoglycemic drugs
CPT/HCPCS: 36415; 74177; 74250; 80053; 81001; 82962; 83605; 83690; 85025; 85610; 85730; 87040; 87086; 87147; 93005; 96361; 96372; 96374; 96375; 96376; 99283; 99285; G0378; J1650; J2270; J2405; Q9967

== ENCOUNTER → 2019-06-20 14:45 | Outpatient (CLI) | payer OTHER, SELFPAY ==
[2019-06-13 10:08] VITALS: BMI 38.2
[2019-06-20 16:00] LABS: Hemoglobin A1C% w Est Avg Glu 6.8 % (4.0-6.0)
== END ==
PROVIDERS: Family Provider Nurse Practitioner; PCP Nurse Practitioner; Visit Provider Surgery
DX: E11.9 Type 2 diabetes mellitus without complications (principal)
CPT/HCPCS: 83036